=== PATIENT | male | born 1970 | race Caucasian/White ===

== ENCOUNTER 2016-12-19 15:41 | Emergency (ER) | payer OTHER ==
[~2016-12-19] VITALS: Ht 185.4 cm; Wt 140.6 kg
[~2016-12-19 15:41] MED LIST: ALPR.25T PO; ARPZ10T; BUTA1CAP39 PO; DULO30CA3 PO; DULO60CA6 PO; HCT25T PO; HYDR25CA PO; HYDR25TA4 PO; LASIX; METF1000 PO; METF500T4 PO; ONDA4TAB8 PO; PROP20TA5 PO; PROP40TA5 PO; ZPR40C PO
[2016-12-19 16:43] LABS: BILIRUBIN,URINE NEGATIVE (NEGATIVE); KETONES,URINE 1+ (NEGATIVE); LEUKOCYTE ESTERASE ,URINE NEGATIVE (NEGATIVE); NITRITE,URINE NEGATIVE (NEGATIVE); PH,URINE 6 (5-9); PROTEIN,URINE NEGATIVE (NEGATIVE); UROBILINOGEN,URINE NORMAL (NORMAL)
[2016-12-19 16:46] LABS: BASOPHILS % (AUTO) 1 % (0-10); EOSINOPHILS # (AUTO) 0.5 10^3/uL (0.0-0.3); EOSINOPHILS % (AUTO) 6 % (0-10); LYMPHOCYTES # (AUTO) 3.1 X 10^3 (1.0-4.0); LYMPHOCYTES % (AUTO) 38 % (12-44); MEAN CORPUSCULAR HEMOGLOBIN 30 PG (25-34); MEAN CORPUSCULAR HGB CONC 36 G/DL (32-36); MEAN CORPUSCULAR VOLUME 84 FL (80-99); MEAN PLATELET VOLUME 9.4 FL (7.4-10.4); MONOCYTES # (AUTO) 0.6 X 10^3 (0.0-1.0); MONOCYTES % (AUTO) 7 % (0-12); NEUTROPHILS # (AUTO) 4.1 X 10^3 (1.8-7.8); NEUTROPHILS % (AUTO) 49 % (42-75); PLATELET COUNT 295 10^3/uL (130-400); RED BLOOD COUNT 4.64 10^6/uL (4.35-5.85); RED CELL DISTRIBUTION WIDTH 13.3 % (10.0-14.5); WHITE BLOOD COUNT 8.3 10^3/uL (4.3-11.0)
[2016-12-19 16:59] LABS: ALANINE AMINOTRANSFERASE 54 U/L (0-55); ALBUMIN 3.9 G/DL (3.2-4.5); ANION GAP 9 MMOL/L (5-14); ASPARTATE AMINO TRANSFERASE 33 U/L (5-34); BILIRUBIN,TOTAL 0.4 MG/DL (0.1-1.0); BLOOD UREA NITROGEN 10 MG/DL (7-18); BUN/CREATININE RATIO 10; CALCIUM 9.5 MG/DL (8.5-10.1); CARBON DIOXIDE 28 MMOL/L (21-32); CHLORIDE 102 MMOL/L (98-107); CREATININE SERUM 0.97 MG/DL (0.60-1.30); GFR ESTIMATED > 60; GLUCOSE 262 MG/DL (70-105); LIPASE 44 U/L (8-78); POTASSIUM 4.3 MMOL/L (3.6-5.0); SODIUM 139 MMOL/L (135-145); TOTAL PROTEIN 6.7 G/DL (6.4-8.2)
--- NOTE | 2016-12-19 16:59 | ED GU-Male ---
General Chief Complaint: Abdominal/GI Problems Stated Complaint: ABD PAIN Nursing Triage Note: PT CO OF ABD PAIN SINCE YESTERDAY R L QUAD Source: patient Exam Limitations: no limitations History of Present Illness Time seen by provider: 16:40 Initial Comments 46-year-old male patient presents to the emergency department complains of right lower quadrant pain since yesterday. Reports he has had nausea for approximately 3 days. Did have one episode of diarrhea yesterday evening. States pain radiates into the right low back and down into the right groin/ scrotum. Timing/Duration: yesterday, changing over time, intermittent Severity/Quality: aching, sharp Location: RLQ Radiation: groin (rt), scrotal (rt), other (rt low back) Activities at Onset: none Prior Genitourinary Problems: none Modifying Factors: Worsens With Palpation Allergies and Home Medications Allergies Coded Allergies: codeine (Unverified Allergy, Mild, 10/22/09) naproxen (Unverified Allergy, Mild, 10/22/09) bacitracin (Verified Allergy, Unknown, 12/01/15) bupropion (Verified Allergy, Unknown, 12/01/15) cephalexin (Verified Allergy, Unknown, 12/01/15) corn (Verified Allergy, Unknown, 12/01/15) doxepin (Verified Allergy, Unknown, 12/01/15) gluten (Verified Allergy, Unknown, 12/01/15) lurasidone (Verified Allergy, Unknown, 12/01/15) neomycin (Verified Allergy, Unknown, 12/01/15) paroxetine (Verified Allergy, Unknown, 12/01/15) polymyxin B (Verified Allergy, Unknown, 12/01/15) sertraline (Verified Allergy, Unknown, 12/01/15) ziprasidone (Verified Allergy, Unknown, 12/01/15) latex (Unverified Adverse Reaction, Mild, RASH, 01/19/11) Home Medications Butalb/Acetaminophen/Caffeine 1 Each Capsule, 1 EACH PO UD PRN for MIGRAINE, ( Reported) TAKE 1 AT ONSET OF MIGRAINES, MAY TAKE UP TO 6 IN 24 HOURS Duloxetine HCl 30 Mg Capsule.dr, 90 MG PO BID, (Reported) take wtih 60mg tab Duloxetine Hcl 60 Mg Capsule.dr, 90 MG PO BID, Ref 0 (Reported) take with 30mg tab Hydroxyzine Pamoate 25 Mg Capsule, 25 MG PO TID, (Reported) Metformin HCl 500 Mg Tablet, 1,000 MG PO BID, (Reported) take 2 (500MG) TAB Propranolol HCl 20 Mg Tablet, 20 MG PO BID, (Reported) Constitutional: No chills, No fever, No malaise Respiratory: no symptoms reported Cardiovascular: no symptoms reported Gastrointestinal: see HPI, abdominal pain (RLQ), No constipation, diarrhea, No hematemesis, loss of appetite, No melena, nausea, No vomiting Genitourinary: denies burning, denies dysuria, denies frequency, flank pain (rt ), denies hematuria Musculoskeletal: see HPI, back pain (rt low back) Skin: no symptoms reported Psychiatric/Neurological: No Symptoms Reported All Other Systemes Reviewed Negative Unless Noted: Yes (Negative excepted noted.) Past Jwwciwq-Jvlugf-Hoivon Hx Patient Social History Alcohol Use: Denies Use Recreational Drug Use: No Smoking Status: Former Smoker Former Smoker/When Quit: Sep 30, 1997 Recent Foreign Travel: No Contact w/Someone Who Travel: No Recent Infectious Disease Expo: No Recent Hopitalizations: No Surgeries HX Surgeries: Yes (CARDIAC CATH, NO INTERVENTION) Surgeries: Gallbladder Respiratory Hx Respiratory Disorders: No Respiratory Disorders: Chronic Bronchitis Cardiovascular Hx Cardiac Disorders: Yes Cardiac Disorders: High Cholesterol, Hypertension Neurological Hx Neurological Disorders: Yes Neurological Disorders: Neuropathy Reproductive System Hx Reproductive Disorders: No Sexually Transmitted Disease: No HIV/AIDS: No Genitourinary Hx Genitourinary Disorders: No Gastrointestinal Hx Gastrointestinal Disorders: Yes (CELIAC DISEASE) Gastrointestinal Disorders: Chronic Diarrhea, Irritable Bowel Musculoskeletal Hx Musculoskeletal Disorders: Yes Musculoskeletal Disorders: Arthritis Endocrine Hx Endocrine Disorders: Yes Endocrine Disorders: Diabetes, Non-Insulin dep HEENT HX ENT Disorders: Yes (ALL TEETH REMOVED, GLASSES) Cancer Hx Cancer: No Psychosocial Hx Psychiatric Problems: Yes Behavioral Health Disorders: Anxiety, PTSD, Bipolar, Depression Integumentary HX Skin/Integumentary Disorder: No Blood Transfusions Hx Blood Disorders: No Family Medical History Significant Family History: Other Conditions/Hx (brother had kidney stones recently.) Physical Exam Vital Signs Vital Sign - Last 12Hours 12/19/16 16:20 Temp 96.0 Pulse 85 Resp 20 B/P (MAP) 140/86 Pulse Ox 98 Capillary Refill : Less Than 3 Seconds General Appearance: WD/WN, no apparent distress Cardiovascular: regular rate, rhythm, no murmur Respiratory: lungs clear, normal breath sounds, no respiratory distress Gastrointestinal: normal bowel sounds, soft, no organomegaly, No distended, guarding (rt mid abdomen/flank), No rebound, tenderness (RLQ, rt flank and rt mid abdomen. (-) groin tenderness. ), No hernia, No mass Back: normal inspection, CVA tenderness (R), No CVA tenderness (L) Extremities: normal capillary refill, pedal edema (2+ pedal edema bilat.) Neurologic/Psychiatric: alert, normal mood/affect, oriented x 3 Skin: normal color, warm/dry Progress/Results/Core Measures Results/Orders Lab Results Laboratory Tests Test 12/19/16 16:25 Range/Units White Blood Count 8.3 4.3-11.0 10^3/uL Red Blood Count 4.64 4.35-5.85 10^6/uL Hemoglobin 13.8 13.3-17.7 G/DL Hematocrit 39 L 40-54 % Mean Corpuscular Volume 84 80-99 FL Mean Corpuscular Hemoglobin 30 25-34 PG Mean Corpuscular Hemoglobin Concent 36 32-36 G/DL Red Cell Distribution Width 13.3 10.0-14.5 % Platelet Count 295 130-400 10^3/uL Mean Platelet Volume 9.4 7.4-10.4 FL Neutrophils (%) (Auto) 49 42-75 % Lymphocytes (%) (Auto) 38 12-44 % Monocytes (%) (Auto) 7 0-12 % Eosinophils (%) (Auto) 6 0-10 % Basophils (%) (Auto) 1 0-10 % Neutrophils # (Auto) 4.1 1.8-7.8 X 10^3 Lymphocytes # (Auto) 3.1 1.0-4.0 X 10^3 Monocytes # (Auto) 0.6 0.0-1.0 X 10^3 Eosinophils # (Auto) 0.5 H 0.0-0.3 10^3/uL Basophils # (Auto) 0.0 0.0-0.1 10^3/uL Urine Color YELLOW Urine Clarity CLEAR Urine pH 6 5-9 Urine Specific [place] 1.020 1.016-1.022 Urine Protein NEGATIVE NEGATIVE Urine Glucose (UA) 4+ H NEGATIVE Urine Ketones 1+ H NEGATIVE Urine Nitrite NEGATIVE NEGATIVE Urine Bilirubin NEGATIVE NEGATIVE Urine Urobilinogen NORMAL NORMAL MG/DL Urine Leukocyte Esterase NEGATIVE NEGATIVE Urine RBC (Auto) NEGATIVE NEGATIVE Urine RBC NONE /HPF Urine WBC NONE /HPF Urine Squamous Epithelial Cells NONE /HPF Urine Crystals NONE /LPF Urine Bacteria NEGATIVE /HPF Urine Casts NONE /LPF Urine Mucus NEGATIVE /LPF Urine Culture Indicated NO Sodium Level 139 135-145 MMOL/L Potassium Level 4.3 3.6-5.0 MMOL/L Chloride Level 102 98-107 MMOL/L Carbon Dioxide Level 28 21-32 MMOL/L Anion Gap 9 5-14 MMOL/L Blood Urea Nitrogen 10 7-18 MG/DL Creatinine 0.97 0.60-1.30 MG/DL Estimat Glomerular Filtration Rate > 60 BUN/Creatinine Ratio 10 Glucose Level 262 H 70-105 MG/DL Calcium Level 9.5 8.5-10.1 MG/DL Total Bilirubin 0.4 0.1-1.0 MG/DL Aspartate Amino Transf (AST/SGOT) 33 5-34 U/L Alanine Aminotransferase (ALT/SGPT) 54 0-55 U/L Alkaline Phosphatase 84 40-136 U/L Total Protein 6.7 6.4-8.2 G/DL Albumin 3.9 3.2-4.5 G/DL Lipase 44 8-78 U/L My Orders Orders - LUISITO WAGONER Cbc With Automated Diff (12/19/16 16:01) Comprehensive Metabolic Panel (12/19/16 16:01) Lipase (12/19/16 16:01) Ua Culture If Indicated (12/19/16 16:01) Saline Lock/Iv-Start (12/19/16 16:01) Ct Abdomen/Pelvis W Wo (12/19/16 17:12) Iohexol Injection (Omnipaque 350 Mg/Ml 1 (12/19/16 17:45) Ns (Ivpb) (Sodium Chloride 0.9% Ivpb Bag (12/19/16 17:45) Ns Iv 1000 Ml (Sodium Chloride 0.9%) (12/19/16 17:52) Medications Given in ED Current Medications Medications Dose Ordered Sig/Syl Route Start Time Stop Time Status Last Admin Dose Admin Iohexol 100 ml ONCE ONCE IV 12/19/16 17:45 12/19/16 17:46 DC 12/19/16 17:35 100 ML Sodium Chloride 100 ml ONCE ONCE IV 12/19/16 17:45 12/19/16 17:46 DC 12/19/16 17:35 80 ML Vital Signs/I&O Vital Sign - Last 12Hours 12/19/16 12/19/16 16:20 18:24 Temp 96.0 96.0 Pulse 85 85 Resp 20 20 B/P (MAP) 140/86 Pulse Ox 98 98 Blood Pressure Mean: 104 Diagnostic Imaging Diagonstic Imaging: CT Plain Films/CT/US/NM/MRI: abdomen, pelvis Comments FINDINGS: The visualized lung bases demonstrate no focal infiltrate or evidence of pleural or pericardial effusion. Diffuse hepatic steatosis is present without focal intrahepatic abnormality. The patient is status post cholecystectomy. There is no abnormal biliary dilatation. The spleen appears normal. There is a tiny left adrenal nodule. This has Hounsfield measurements of less than 10 and is most compatible with an adenoma. The pancreas demonstrates no focal abnormality. The kidneys are nonobstructed. There is no radiodense stone evident within the ureters. There is no stone evident within the urinary bladder. The kidneys enhance normally. The small and large bowel appear normal in caliber without evidence of obstruction. There is no focal abnormal bowel thickening demonstrated. There are a few uncomplicated colonic diverticula present but no findings to suggest diverticulitis. There is moderate stool within the colon. The appendix is normal. There is no free air or free fluid. Urinary bladder nondistended. There is a fat-containing umbilical hernia. There is no pathologic enlargement of abdominal or pelvic lymph nodes. There are mild degenerative features within the spine but no acute or suspicious osseous abnormality. IMPRESSION: 1. No CT evidence of an acute inflammatory or obstructive process within the abdomen or pelvis. 2. Hepatic steatosis. 3. Status post cholecystectomy. 4. No evidence of urolithiasis or hydronephrosis. The kidneys enhance normally. 5. Small low-density left adrenal nodule is most compatible with a small adenoma. 6. There is no bowel obstruction. The appendix is normal. 7. There is no free fluid or focal inflammation demonstrated within the omentum or mesentery. Dictated on workstation # [id number] Reviewed: Reviewed by Me (radiology report reviewed by me) Departure Communication Progress Notes All laboratory and diagnostic findings discussed with the patient. Patient continues to refuse pain medication. Plan for discharge to home with follow-up as an outpatient with [facility]. Patient instructed to contact their office for appointment time. Patient also instructed to return immediately to the emergency department if symptoms worsen. Patient voices understanding and agrees with the treatment plan. Impression Impression: Primary Impression: Abdominal pain Additional Impression: Diabetes mellitus Disposition: 01 HOME, SELF-CARE Condition: Improved Departure-Patient Inst. Decision time for Depature: 18:05 Referrals: [facility] (PCP/Family) Primary Care Physician Patient Instructions: Acute Abdomen (Belly Pain), Adult (DC) Add. Discharge Instructions: All discharge instructions reviewed with patient and/or family. Voiced understanding. Tylenol Extra Strength [id number] as directed for pain. Ibuprofen 800 mg by mouth every 8 hours as needed for pain. Drink plenty of fluids. Colace stool softener 100 mg by mouth 2-3 times daily as needed for constipation. MiraLAX [id number] 17 g mixed with 8 ounces of fluids by mouth at bedtime as needed for constipation. Follow-up with your family practitioner for recheck if no improvement in symptoms. Return to the emergency department for worsened pain, fever, vomiting, vomiting blood, rectal bleeding, black stools, inability to urinate, blood in the urine, or any other concerns. LUISITO WAGONER Dec 19, 2016 16:59
[2016-12-19] MEDS ORDERED: NS 100 ML (IVPB) BAG IV ONE (17:45)
[2016-12-19] MEDS ORDERED: IOHEXOL 350 MG/ML 100 ML (OMNIPAQUE 350) VIAL IV ONE (17:45)
[2016-12-19] MEDS ORDERED: NS IV 1000 ML 1,000 ML IV ONE (17:52)
--- NOTE | 2016-12-19 18:00 | Diagnostic Imaging Report ---
PROCEDURE: CT abdomen and pelvis with and without contrast. TECHNIQUE: Precontrast acquisitions were acquired through the abdomen and pelvis. Multiple contiguous axial images were obtained through the abdomen and pelvis after the administration of intravenous contrast. INDICATION: Right-sided flank pain with nausea and diarrhea. FINDINGS: The visualized lung bases demonstrate no focal infiltrate or evidence of pleural or pericardial effusion. Diffuse hepatic steatosis is present without focal intrahepatic abnormality. The patient is status post cholecystectomy. There is no abnormal biliary dilatation. The spleen appears normal. There is a tiny left adrenal nodule. This has Hounsfield measurements of less than 10 and is most compatible with an adenoma. The pancreas demonstrates no focal abnormality. The kidneys are nonobstructed. There is no radiodense stone evident within the ureters. There is no stone evident within the urinary bladder. The kidneys enhance normally. The small and large bowel appear normal in caliber without evidence of obstruction. There is no focal abnormal bowel thickening demonstrated. There are a few uncomplicated colonic diverticula present but no findings to suggest diverticulitis. There is moderate stool within the colon. The appendix is normal. There is no free air or free fluid. Urinary bladder nondistended. There is a fat-containing umbilical hernia. There is no pathologic enlargement of abdominal or pelvic lymph nodes. There are mild degenerative features within the spine but no acute or suspicious osseous abnormality. IMPRESSION: 1. No CT evidence of an acute inflammatory or obstructive process within the abdomen or pelvis. 2. Hepatic steatosis. 3. Status post cholecystectomy. 4. No evidence of urolithiasis or hydronephrosis. The kidneys enhance normally. 5. Small low-density left adrenal nodule is most compatible with a small adenoma. 6. There is no bowel obstruction. The appendix is normal. 7. There is no free fluid or focal inflammation demonstrated within the omentum or mesentery. Dictated by: Dictated on workstation # [id number]
[2016-12-19 18:24] VITALS: BP 140/86
--- OUTSIDE RECORDS SUMMARY | 2017-01-03 18:42 | XMS REPORT ---
Author Author YONY CASTRO [facility] eClinicalWorks Address Unknown Phone Unavailable Care Team Providers Care Barrel Washer Machine Name Role Phone YONY CASTRO CP Unavailable Allergies No Known Allergies Problems Problem Type Condition Code Onset Dates Condition Status Problem Left leg claudication I73.9 Active Problem Mild hyperlipidemia E78.5 Active Problem Hypertension I10 Active Problem Right leg claudication I73.9 Active Problem Diabetes type 2, controlled E11.9 Active Problem Hypertension, benign I10 Active Problem Diabetes type 2, uncontrolled E11.65 Active Problem Generalized anxiety disorder F41.1 Active Problem Bipolar disorder, unspecified F31.9 Active Problem Memory loss R41.3 Active Problem Primary insomnia F51.01 Active Medications Medication Code System Code Instructions Start Date End Date Status Dosage Propranolol HCl [facility] [address]-56 20 mg Orally Twice a day 1 tablet Results No Known Results Summary Purpose eClinicalWorks Submission
--- OUTSIDE RECORDS SUMMARY | 2017-01-03 18:42 | XMS REPORT ---
Author Author CHELSIE MACHADO Organization e[employer] Address Unknown Phone Unavailable Care Team Providers Care Systems Management Consultant Name Role Phone CHELSIE MACHADO CP Unavailable Allergies No Known Allergies Problems Problem Type Condition Code Onset Dates Condition Status Problem Unspecified visual loss 369.9 Active Problem Unspecified conjunctivitis 372.30 Active Problem Memory loss 780.93 Active Problem Bipolar disorder, unspecified F31.9 Active Problem Type II diabetes mellitus 250.00 Active Problem Generalized anxiety disorder F41.1 Active Problem Essential hypertension, benign 401.1 Active Problem 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
--- OUTSIDE RECORDS SUMMARY | 2017-01-03 18:43 | XMS REPORT ---
Author Author CHELSIE MACHADO [facility] eClinicalWorks Address Unknown Phone Unavailable Care Team Providers Care Cloud Automation Tester Name Role Phone CHELSIE MACHADO CP Unavailable Allergies, Adverse Reactions, Alerts Substance Reaction Event Type Zoloft "psychosis" Drug Allergy Ziprasidone HCl involuntary eye mvmt Drug Allergy Paxil drooling Drug Allergy Neosporin swelling Drug Allergy Naproxen rash Drug Allergy Doxepin HCl anger Drug Allergy Codeine Sulfate rash Drug Allergy gluten nausea and vomiting Non Drug Allergy Latex itching Non Drug Allergy corn/popcorn excessive sleepiness Non Drug Allergy Problems Problem Type Condition Code Onset Dates Condition Status Assessment Diabetes type 2, controlled E11.9 Active Problem Hypertension, benign I10 Active Problem Memory loss R41.3 Active Problem Diabetes type 2, controlled E11.9 Active Problem Bipolar disorder, unspecified F31.9 Active Assessment Mood disorder F39 Active Problem Primary insomnia F51.01 Active Problem Generalized anxiety disorder F41.1 Active Medications Medication Code System Code Instructions Start Date End Date Status Dosage Metformin HCl [facility] [address]-14 500 MG Twice a day 2 tablets HydrOXYzine HCl [facility] [address]-40 10 MG Orally every 8 hrs PRN March 24, 2015 1 tablet as needed Hydrochlorothiazide [facility] [address]-25 25 MG Once a day 1 capsule Cymbalta [facility] [address]-23 30 MG Orally Twice a day April 23, 2015 1 capsule Alprazolam [facility] [address]-94 1 MG TAKE ONE TABLET BY MOUTH THREE TIMES DAILY Propranolol HCl [facility] [address]-24 20 MG TAKE ONE TABLET BY MOUTH TWICE DAILY Lancets [facility] 0 - December 03, 2014 1 time per day ONE TOUCH DELICA LANCETS Cymbalta [facility] [address]-61 60 MG Orally Twice a day Jun 26, 2012 1 capsule Procedures Procedure Coding System Code Date Office Visit, Est Pt., Level 3 CPT-4 16955 Aug 24, 2015 Vital Signs Date/Time: Aug 24, 2015 Temperature 97.8 F Weight 274 lbs Height 73 in BMI 36.15 Index Blood Pressure Diastolic 94 mmHg Blood Pressure Systolic 132 mmHg Cardiac Monitoring Heart Rate 84 bpm Results No Known Results Summary Purpose eClinicalWorks Submission
--- OUTSIDE RECORDS SUMMARY | 2017-01-03 18:45 | XMS REPORT ---
Author Author CHELSIE MACHADO Organization e[employer] Address Unknown Phone Unavailable Care Team Providers Care Skiver Machine Name Role Phone CHELSIE MACHADO CP Unavailable [...] Instructions Start Date End Date Status Dosage Test strips NDC 0 Test Strips Contour test strips 3 times weekly January 25, 2016 test 2 times per day Results No Known Results Summary Purpose eClinicalWorks Submission
--- OUTSIDE RECORDS SUMMARY | 2017-01-03 18:45 | XMS REPORT ---
Author Author DIPTI GARCIA [facility] eClinicalWorks Address Unknown Phone Unavailable Care Team Providers Care Clinical Exercise Physiologist Name Role Phone DIPTI GARCIA CP Unavailable Allergies, Adverse Reactions, Alerts Substance Reaction Event Type Zoloft "psychosis" Drug Allergy Ziprasidone HCl involuntary eye mvmt Drug Allergy Latuda caused blood sugar to spike Drug Allergy Wellbutrin Info Not Available Drug Allergy Paxil drooling Drug Allergy Neosporin swelling Drug Allergy Naproxen rash Drug Allergy Doxepin HCl anger Drug Allergy Codeine Sulfate rash Drug Allergy Cephalexin rash and short of breath Drug Allergy Latex itching Non Drug Allergy gluten nausea and vomiting Non Drug Allergy corn/popcorn excessive sleepiness Non Drug Allergy Problems Problem Type Condition Code Onset Dates Condition Status Problem Left leg claudication I73.9 Active Problem Mild hyperlipidemia E78.5 Active Problem Hypertension I10 Active Assessment Sore in nose J34.89 Active Problem Right leg claudication I73.9 Active Problem Diabetes type 2, controlled E11.9 Active Problem Hypertension, benign I10 Active Problem Diabetes type 2, uncontrolled E11.65 Active Problem Generalized anxiety disorder F41.1 Active Problem Bipolar disorder, unspecified F31.9 Active Problem Memory loss R41.3 Active Problem Primary insomnia F51.01 Active Medications Medication Code System Code Instructions Start Date End Date Status Dosage Cymbalta [facility] [address]-59 30 MG Orally TAKE ONE CAPSULE BY MOUTH TWICE DAILY Test strips ND 0 Test Strips Contour test strips 3 times weekly January 25, 2016 test 2 times per day Propranolol HCl [facility] [address]-39 20 mg Orally Twice a day 1 tablet Metformin HCl [facility] 93831455120 500 MG Twice a day 2 tablets HydrOXYzine HCl [facility] [address]-27 25 MG Orally every 8 hrs PRN March 24, 2015 1 tablet as needed Cymbalta [facility] [address]-53 60 MG Orally Twice a day Jun 26, 2012 1 capsule Lancets [place] 0 - December 03, 2014 1 time per day ONE TOUCH DELICA LANCETS Bactroban Nasal [facility] [address]-73 2 % Nasally 2 times a day May 16, 2016 apply thin layer to inside of nares Procedures Procedure Coding System Code Date SHIRA VIRUS ISOLATE, HSV CPT-4 24813 May 16, 2016 Office Visit, Est Pt., Level 3 CPT-4 78339 May 16, 2016 Vital Signs Date/Time: May 16, 2016 Cardiac Monitoring Heart Rate 94 bpm Weight 280.6 lbs Height 73 in BMI 37.02 Index Blood Pressure Diastolic 90 mmHg Blood Pressure Systolic 140 mmHg Results No Known Results Summary Purpose eClinicalWorks Submission
--- OUTSIDE RECORDS SUMMARY | 2017-01-03 18:45 | XMS REPORT | Continuity of Care Document ---
Author Author [facility] Address Unknown Phone Unavailable Allergies Active Description Code Type Severity Reaction Onset Reported/Identified Relationship to Patient Clinical Status Yes codeine Drug Allergy N/A N/A 01/15/2009 Yes gluten Food Allergy N/A N/A 01/15/2009 Yes codeine Drug Allergy 01/15/2009 Yes gluten Food Allergy 01/15/2009 Yes Naproxen Sodium DS Drug Allergy 01/15/2009 Yes codeine [id number] Drug Allergy Mild N/A 10/22/2009 Yes naproxen [id number] Drug Allergy Mild N/A 10/22/2009 Yes latex [id number] Drug Allergy Mild RASH 01/19/2011 Yes Neosporin Drug Allergy N/A N/A 05/15/2012 Yes Neosporin Drug Allergy 05/15/2012 Yes latex Drug Allergy N/A N/A 07/03/2012 Yes latex Drug Allergy 07/03/2012 Yes doxepin 50 mg capsule Drug Allergy N/A N/A 12/11/2012 Yes doxepin 50 mg capsule Drug Allergy 12/11/2012 Yes bacitracin [id number] Drug Allergy Unknown N/A 12/01/2015 Yes bupropion [id number] Drug Allergy Unknown N/A 12/01/2015 Yes cephalexin [id number] Drug Allergy Unknown N/A 12/01/2015 Yes corn [id number] Drug Allergy Unknown N/A 12/01/2015 Yes doxepin [id number] Drug Allergy Unknown N/A 12/01/2015 Yes gluten [id number] Drug Allergy Unknown N/A 12/01/2015 Yes lurasidone [id number] Drug Allergy Unknown N/A 12/01/2015 Yes neomycin [id number] Drug Allergy Unknown N/A 12/01/2015 Yes paroxetine [id number] Drug Allergy Unknown N/A 12/01/2015 Yes polymyxin B [id number] Drug Allergy Unknown N/A 12/01/2015 Yes sertraline [id number] Drug Allergy Unknown N/A 12/01/2015 Yes ziprasidone [id number] Drug Allergy Unknown N/A 12/01/2015 Medications Problems Date Dx Coded Attending Type Code Diagnosis Diagnosed By 10/08/2008 KYEERICK VALENCIAWILBER Pina Uriel 604.90 ORCHITIS AND EPIDIDYMITIS UNSPECIFIED 10/08/2008 604.90 ORCHITIS AND EPIDIDYMITIS UNSPECIFIED 10/08/2008 604.90 ORCHITIS AND EPIDIDYMITIS UNSPECIFIED 10/08/2008 CHELSIE MACHADO APRN 604.90 ORCHITIS AND EPIDIDYMITIS UNSPECIFIED 10/08/2008 CHELSIE MACHADO APRN 604.90 ORCHITIS AND EPIDIDYMITIS UNSPECIFIED 10/08/2008 604.90 ORCHITIS AND EPIDIDYMITIS UNSPECIFIED 10/08/2008 CARMEN COREA APRN 604.90 ORCHITIS AND EPIDIDYMITIS UNSPECIFIED 10/08/2008 CHELSIE MACHADO APRN 604.90 Orchitis And Epididymitis Unspecified 10/08/2008 604.90 Orchitis And Epididymitis Unspecified 10/08/2008 604.90 Orchitis And Epididymitis Unspecified 10/08/2008 604.90 Orchitis And Epididymitis Unspecified 10/08/2008 604.90 Orchitis And Epididymitis Unspecified 10/08/2008 604.90 Orchitis And Epididymitis Unspecified 10/08/2008 604.90 Orchitis And Epididymitis Unspecified 10/08/2008 CARMEN COREA APRN 604.90 Orchitis And Epididymitis Unspecified 10/08/2008 CHELSIE MACHADO APRN 604.90 Orchitis And Epididymitis Unspecified 10/08/2008 CARMEN COREA APRN 604.90 Orchitis And Epididymitis Unspecified 10/08/2008 CHELSIE MACHADO APRN 604.90 Orchitis And Epididymitis Unspecified 10/08/2008 CHELSIE MACHADO APRN 604.90 Orchitis And Epididymitis Unspecified 10/08/2008 CHELSIE MACHADO APRN 604.90 Orchitis And Epididymitis Unspecified 10/08/2008 HALINA CHAPARRO APRN 604.90 Orchitis And Epididymitis Unspecified 10/08/2008 CHELSIE MACHADO APRN 604.90 Orchitis And Epididymitis Unspecified 10/08/2008 CARMEN COREA APRN 604.90 Orchitis And Epididymitis Unspecified 10/08/2008 CARMEN COREA APRN 604.90 Orchitis And Epididymitis Unspecified 10/08/2008 CHELSIE MACHADO APRN 604.90 Orchitis And Epididymitis Unspecified 10/08/2008 JANEL PALACIOS APRN 604.90 Orchitis And Epididymitis Unspecified 10/08/2008 CHELSIE MACHADO APRN T 604.90 Orchitis And Epididymitis Unspecified 10/08/2008 CHELSIE MACHADO APRN T 604.90 Orchitis And Epididymitis Unspecified 10/08/2008 CHELSIE MACHADO APRN T 604.90 Orchitis And Epididymitis Unspecified 01/15/2009 CHEIKH SWEET, WILBER Trevino V70.0 GENERAL MEDICAL EXAM, ROUTINE, AT HEALTH CARE FACILITY 01/15/2009 V70.0 GENERAL MEDICAL EXAM, ROUTINE, AT HEALTH CARE FACILITY 01/15/2009 V70.0 GENERAL MEDICAL EXAM, ROUTINE, AT HEALTH CARE FACILITY 01/15/2009 CHELSIE MACHADO APRN V70.0 GENERAL MEDICAL EXAM, ROUTINE, AT HEALTH CARE FACILITY 01/15/2009 CHELSIE MACHADO APRN V70.0 GENERAL MEDICAL EXAM, ROUTINE, AT HEALTH CARE FACILITY 01/15/2009 V70.0 GENERAL MEDICAL EXAM, ROUTINE, AT HEALTH CARE FACILITY 01/15/2009 CARMEN COREA APRN V70.0 GENERAL MEDICAL EXAM, ROUTINE, AT HEALTH CARE FACILITY 01/15/2009 CHELSIE MACHADO APRN V70.0 General Medical Exam, Routine, At Health Care Facility 01/15/2009 V70.0 General Medical Exam, Routine, At Health Care Facility 01/15/2009 V70.0 General Medical Exam, Routine, At Health Care Facility 01/15/2009 V70.0 General Medical Exam, Routine, At Health Care Facility 01/15/2009 V70.0 General Medical Exam, Routine, At Health Care Facility 01/15/2009 V70.0 General Medical Exam, Routine, At Health Care Facility 01/15/2009 V70.0 General Medical Exam, Routine, At Health Care Facility 01/15/2009 CARMEN COREA APRN V70.0 General Medical Exam, Routine, At Health Care Facility 01/15/2009 JEANNETTE DENTAL FLOSS PACKER, CHELSIE T V70.0 General Medical Exam, Routine, At Health Care Facility 01/15/2009 CARMEN COREA APRN V70.0 General Medical Exam, Routine, At Health Care Facility 01/15/2009 CHELSIE MACHADO APRN V70.0 General Medical Exam, Routine, At Health Care Facility 01/15/2009 CHELSIE MACHADO APRN V70.0 General Medical Exam, Routine, At Health Care Facility 01/15/2009 CHELSIE MACHADO APRN V70.0 General Medical Exam, Routine, At Health Care Facility 01/15/2009 HALINA CHAPARRO APRN V70.0 General Medical Exam, Routine, At Health Care Facility 01/15/2009 CHELSIE MACHADO APRN V70.0 General Medical Exam, Routine, At Health Care Facility 01/15/2009 CARMEN COREA APRN V70.0 General Medical Exam, Routine, At Health Care Facility 01/15/2009 CARMEN COREA APRN V70.0 General Medical Exam, Routine, At Health Care Facility 01/15/2009 CHELSIE MACHADO APRN V70.0 General Medical Exam, Routine, At Health Care Facility 01/15/2009 JANEL PALACIOS APRN V70.0 General Medical Exam, Routine, At Health Care Facility 01/15/2009 CHELSIE MACHADO APRN V70.0 General Medical Exam, Routine, At Health Care Facility 01/15/2009 CHELSIE MACHADO APRN V70.0 General Medical Exam, Routine, At Health Care Facility 01/15/2009 CHELSIE MACHADO APRN V70.0 General Medical Exam, Routine, At Health Care Facility 03/04/2009 WILBER SALAMANCA DDS 272.4 HYPERLIPIDEMIA UNSPECIFIED 03/04/2009 272.4 HYPERLIPIDEMIA UNSPECIFIED 03/04/2009 272.4 HYPERLIPIDEMIA UNSPECIFIED 03/04/2009 CHELSIE MACHADO APRN 272.4 HYPERLIPIDEMIA UNSPECIFIED 03/04/2009 CHELSIE MACHADO APRN 272.4 HYPERLIPIDEMIA UNSPECIFIED 03/04/2009 272.4 HYPERLIPIDEMIA UNSPECIFIED 03/04/2009 CARMEN COREA APRN 272.4 HYPERLIPIDEMIA UNSPECIFIED 03/04/2009 CHELSIE MACHADO APRN 272.4 HYPERLIPIDEMIA UNSPECIFIED 03/04/2009 272.4 HYPERLIPIDEMIA UNSPECIFIED 03/04/2009 272.4 HYPERLIPIDEMIA UNSPECIFIED 03/04/2009 272.4 HYPERLIPIDEMIA UNSPECIFIED 03/04/2009 272.4 HYPERLIPIDEMIA UNSPECIFIED 03/04/2009 272.4 HYPERLIPIDEMIA UNSPECIFIED 03/04/2009 272.4 HYPERLIPIDEMIA UNSPECIFIED 03/04/2009 COREA DENTAL FLOSS PACKER, CARMEN FROYLAN 272.4 HYPERLIPIDEMIA UNSPECIFIED 03/04/2009 JEANNETTE DENTAL FLOSS PACKER, CHELSIE T 272.4 HYPERLIPIDEMIA UNSPECIFIED 03/04/2009 COREA DENTAL FLOSS PACKER, CARMEN FROYLAN 272.4 HYPERLIPIDEMIA UNSPECIFIED 03/04/2009 JEANNETTE DENTAL FLOSS PACKER, CHELSIE T 272.4 HYPERLIPIDEMIA UNSPECIFIED 03/04/2009 JEANNETTE DENTAL FLOSS PACKER, CHELSIE T 272.4 HYPERLIPIDEMIA UNSPECIFIED 03/04/2009 JEANNETTE DENTAL FLOSS PACKER, CHELSIE T 272.4 HYPERLIPIDEMIA UNSPECIFIED 03/04/2009 KRYSTA DENTAL FLOSS PACKER, HALINA R 272.4 HYPERLIPIDEMIA UNSPECIFIED 03/04/2009 JEANNETTE DENTAL FLOSS PACKER, CHELSIE T 272.4 HYPERLIPIDEMIA UNSPECIFIED 03/04/2009 COREA DENTAL FLOSS PACKER, CARMEN GALEANO 272.4 HYPERLIPIDEMIA UNSPECIFIED 03/04/2009 COREA DENTAL FLOSS PACKER, CARMEN FROYLAN 272.4 HYPERLIPIDEMIA UNSPECIFIED 03/04/2009 JEANNETTE DENTAL FLOSS PACKER, CHELSIE T 272.4 HYPERLIPIDEMIA UNSPECIFIED 03/04/2009 SUZANNE DENTAL FLOSS PACKER, JANEL 272.4 HYPERLIPIDEMIA UNSPECIFIED 03/04/2009 JEANNETTE DENTAL FLOSS PACKER, CHELSIE T 272.4 HYPERLIPIDEMIA UNSPECIFIED 03/04/2009 JEANNETTE DENTAL FLOSS PACKER, CHELSIE T 272.4 HYPERLIPIDEMIA UNSPECIFIED 03/04/2009 JEANNETTE DENTAL FLOSS PACKER, CHELSIE T 272.4 HYPERLIPIDEMIA UNSPECIFIED 10/19/2009 CHEIKH VALENCIAS, WILBER N 786.50 CHEST PAIN 10/19/2009 786.50 CHEST PAIN 10/19/2009 786.50 CHEST PAIN 10/19/2009 CHELSIE MACHADO APRN T 786.50 CHEST PAIN 10/19/2009 JEANNETTE TURK CHELSIE T 786.50 CHEST PAIN 10/19/2009 786.50 CHEST PAIN 10/19/2009 NAHOMY TURK, CARMEN FROYLAN 786.50 CHEST PAIN 10/19/2009 CHELSIE MACHADO APRN T 786.50 CHEST PAIN 10/19/2009 786.50 CHEST PAIN 10/19/2009 786.50 CHEST PAIN 10/19/2009 786.50 CHEST PAIN 10/19/2009 786.50 CHEST PAIN 10/19/2009 786.50 CHEST PAIN 10/19/2009 786.50 CHEST PAIN 10/19/2009 NAHOMY TAYLORN, CARMEN GALEANO 786.50 CHEST PAIN 10/19/2009 JEANNETTE TURK, CHELSIE T 786.50 CHEST PAIN 10/19/2009 NAHOMY DENTAL FLOSS PACKER, CARMEN GALEANO 786.50 CHEST PAIN 10/19/2009 JEANNETTE TURK, CHELSIE T 786.50 CHEST PAIN 10/19/2009 JEANNETTE TURK, CHELSIE T 786.50 CHEST PAIN 10/19/2009 JEANNETTE TURK, CHELSIE T 786.50 CHEST PAIN 10/19/2009 KRYSTA DENTAL FLOSS PACKER, HALINA R 786.50 CHEST PAIN 10/19/2009 JEANNETTE TURK, CHELSIE T 786.50 CHEST PAIN 10/19/2009 NAHOMY DENTAL FLOSS PACKER, CARMEN GALEANO 786.50 CHEST PAIN 10/19/2009 NAHOMY DENTAL FLOSS PACKER, CARMEN GALEANO 786.50 CHEST PAIN 10/19/2009 JEANNETTE TURK, CHELSIE T 786.50 CHEST PAIN 10/19/2009 SUZANNE DENTAL FLOSS PACKER, JANEL 786.50 CHEST PAIN 10/19/2009 JEANNETTE TURK, CHELSIE T 786.50 CHEST PAIN 10/19/2009 JEANNETTE TURK, CHELSIE T 786.50 CHEST PAIN 10/19/2009 CHELSIE MACHADO APRN T 786.50 CHEST PAIN 06/01/2010 CHEIKH SWEET, WILBER Trevino 296.80 MO BIPOLAR NOS 06/01/2010 296.80 MO BIPOLAR NOS 06/01/2010 296.80 MO BIPOLAR NOS 06/01/2010 CHELSIE MACHADO APRN 296.80 MO BIPOLAR NOS 06/01/2010 CHELSIE MACHADO APRN 296.80 MO BIPOLAR NOS 06/01/2010 296.80 MO BIPOLAR NOS 06/01/2010 CARMEN COREA APRN 296.80 MO BIPOLAR NOS 06/01/2010 CHELSIE MACHADO APRN 296.80 MO BIPOLAR NOS 06/01/2010 296.80 MO BIPOLAR NOS 06/01/2010 296.80 MO BIPOLAR NOS 06/01/2010 296.80 MO BIPOLAR NOS 06/01/2010 296.80 MO BIPOLAR NOS 06/01/2010 296.80 MO BIPOLAR NOS 06/01/2010 296.80 MO BIPOLAR NOS 06/01/2010 CARMEN COREA APRN 296.80 MO BIPOLAR NOS 06/01/2010 CHELSIE MACHADO APRN 296.80 MO BIPOLAR NOS 06/01/2010 CARMEN COREA APRN 296.80 MO BIPOLAR NOS 06/01/2010 JEANNETTE DENTAL FLOSS PACKER, CHELSIE T 296.80 MO BIPOLAR NOS 06/01/2010 CHELSIE MACHADO APRN T 296.80 MO BIPOLAR NOS 06/01/2010 CHELSIE MACHADO APRN 296.80 MO BIPOLAR NOS 06/01/2010 HALINA CHAPARRO APRN 296.80 MO BIPOLAR NOS 06/01/2010 CHELSIE MACHADO APRN T 296.80 MO BIPOLAR NOS 06/01/2010 NAHOMY TURK CARMEN FROYLAN 296.80 MO BIPOLAR NOS 06/01/2010 NAHOMY TURK CARMEN FROYLAN 296.80 MO BIPOLAR NOS 06/01/2010 CHELSIE MACHADO APRN T 296.80 MO BIPOLAR NOS 06/01/2010 JANEL PALACIOS APRN 296.80 MO BIPOLAR NOS 06/01/2010 CHELSIE MACHADO APRN T 296.80 MO BIPOLAR NOS 06/01/2010 CHELSIE MACHADO APRN T 296.80 MO BIPOLAR NOS 06/01/2010 CHELSIE MACHADO APRN T 296.80 MO BIPOLAR NOS 01/03/2011 CHEIKH SWEET, WILBER Trevino 300.00 AN ANXIETY UNSPEC 01/03/2011 300.00 AN ANXIETY UNSPEC 01/03/2011 300.00 AN ANXIETY UNSPEC 01/03/2011 CHELSIE MACHADO APRN 300.00 AN ANXIETY UNSPEC 01/03/2011 CHELSIE MACHADO APRN 300.00 AN ANXIETY UNSPEC 01/03/2011 300.00 AN ANXIETY UNSPEC 01/03/2011 NAHOMY TURK CARMEN FROYLAN 300.00 AN ANXIETY UNSPEC 01/03/2011 CHELSIE MACHADO APRN 300.00 AN ANXIETY UNSPEC 01/03/2011 300.00 AN ANXIETY UNSPEC 01/03/2011 300.00 AN ANXIETY UNSPEC 01/03/2011 300.00 AN ANXIETY UNSPEC 01/03/2011 300.00 AN ANXIETY UNSPEC 01/03/2011 300.00 AN ANXIETY UNSPEC 01/03/2011 300.00 AN ANXIETY UNSPEC 01/03/2011 NAHOMY TURK CAMREN FROYLAN 300.00 AN ANXIETY UNSPEC 01/03/2011 CHELSIE MACHADO APRN 300.00 AN ANXIETY UNSPEC 01/03/2011 CARMEN COREA APRN 300.00 AN ANXIETY UNSPEC 01/03/2011 CHELSIE MACHADO APRN 300.00 AN ANXIETY UNSPEC 01/03/2011 CHELSIE MACHADO APRN 300.00 AN ANXIETY UNSPEC 01/03/2011 CHELSIE MACHADO APRN 300.00 AN ANXIETY UNSPEC 01/03/2011 HALINA CHAPARRO APRN R 300.00 AN ANXIETY UNSPEC 01/03/2011 CHELSIE MACHADO APRN 300.00 AN ANXIETY UNSPEC 01/03/2011 NAHOMY TAYLORNCARMEN 300.00 AN ANXIETY UNSPEC 01/03/2011 NAHOMY TAYLORNCARMEN 300.00 AN ANXIETY UNSPEC 01/03/2011 CHELSIE MACHADO APRN 300.00 AN ANXIETY UNSPEC 01/03/2011 JANEL PALACIOS APRN 300.00 AN ANXIETY UNSPEC 01/03/2011 CHELSIE MACHADO APRN 300.00 AN ANXIETY UNSPEC 01/03/2011 CHELSIE MACHADO APRN 300.00 AN ANXIETY UNSPEC 01/03/2011 CHELSIE MACHADO APRN 300.00 AN ANXIETY UNSPEC 01/20/2011 Ot 786.59 01/20/2011 Ot 790.29 01/31/2011 WILBER SALAMANCA DDS N 780.8 GENERALIZED HYPERHIDROSIS 01/31/2011 WILBER SALAMANCA DDS 787.02 NAUSEA ALONE 01/31/2011 780.8 GENERALIZED HYPERHIDROSIS 01/31/2011 787.02 NAUSEA ALONE 01/31/2011 780.8 GENERALIZED HYPERHIDROSIS 01/31/2011 787.02 NAUSEA ALONE 01/31/2011 CHELSIE MACHADO APRN 780.8 GENERALIZED HYPERHIDROSIS 01/31/2011 CHELSIE MACHADO APRN 787.02 NAUSEA ALONE 01/31/2011 CHELSIE MACHADO APRN 780.8 GENERALIZED HYPERHIDROSIS 01/31/2011 CHELSIE MACHADO APRN 787.02 NAUSEA ALONE 01/31/2011 780.8 GENERALIZED HYPERHIDROSIS 01/31/2011 787.02 NAUSEA ALONE 01/31/2011 NAHOMY TURK CARMEN GALEANO 780.8 GENERALIZED HYPERHIDROSIS 01/31/2011 NAHOMY TURK CARMEN GALEANO 787.02 NAUSEA ALONE 01/31/2011 CHELSIE MACHADO APRN 780.8 GENERALIZED HYPERHIDROSIS 01/31/2011 CHELSIE MACHADO APRN 787.02 Nausea Alone 01/31/2011 780.8 GENERALIZED HYPERHIDROSIS 01/31/2011 787.02 Nausea Alone 01/31/2011 780.8 GENERALIZED HYPERHIDROSIS 01/31/2011 787.02 Nausea Alone 01/31/2011 780.8 GENERALIZED HYPERHIDROSIS 01/31/2011 787.02 Nausea Alone 01/31/2011 780.8 GENERALIZED HYPERHIDROSIS 01/31/2011 787.02 Nausea Alone 01/31/2011 780.8 GENERALIZED HYPERHIDROSIS 01/31/2011 787.02 Nausea Alone 01/31/2011 780.8 GENERALIZED HYPERHIDROSIS 01/31/2011 787.02 Nausea Alone 01/31/2011 COREA BURKE CARMEN GALEANO 780.8 GENERALIZED HYPERHIDROSIS 01/31/2011 COREA BURKE CARMEN GALEANO 787.02 Nausea Alone 01/31/2011 CHELSIE MACHADO APRN 780.8 GENERALIZED HYPERHIDROSIS 01/31/2011 CHELSIE MACHADO APRN 787.02 Nausea Alone 01/31/2011 NAHOMY TURK CARMEN RITTERH 780.8 GENERALIZED HYPERHIDROSIS 01/31/2011 NAHOMY TURK CARMEN RITTERH 787.02 Nausea Alone 01/31/2011 CHELSIE MACHADO APRN 780.8 GENERALIZED HYPERHIDROSIS 01/31/2011 CHELSIE MACHADO APRN 787.02 Nausea Alone 01/31/2011 CHELSIE MACHADO APRN 780.8 GENERALIZED HYPERHIDROSIS 01/31/2011 CHELSIE MACHADO APRN 787.02 Nausea Alone 01/31/2011 CHELSIE MACHADO APRN 780.8 GENERALIZED HYPERHIDROSIS 01/31/2011 CHELSIE MACHADO APRN 787.02 Nausea Alone 01/31/2011 HALINA CHAPARRO APRN R 780.8 GENERALIZED HYPERHIDROSIS 01/31/2011 HALINA CHAPARRO APRN R 787.02 Nausea Alone 01/31/2011 CHELSIE MACHADO APRN 780.8 GENERALIZED HYPERHIDROSIS 01/31/2011 CHELSIE MACHADO APRN 787.02 Nausea Alone 01/31/2011 NAHOMY TURK CARMEN RITTERH 780.8 GENERALIZED HYPERHIDROSIS 01/31/2011 NAHOMY TURK CARMEN RITTERH 787.02 Nausea Alone 01/31/2011 NAHOMY TURK CARMEN RITTERH 780.8 GENERALIZED HYPERHIDROSIS 01/31/2011 NAHOMY TURK CARMEN GALEANO 787.02 Nausea Alone 01/31/2011 CHELSIE MACHADO APRN 780.8 GENERALIZED HYPERHIDROSIS 01/31/2011 CHELSIE MACHADO APRN 787.02 Nausea Alone 01/31/2011 SUZANNEJOAN TURK, JANEL 780.8 GENERALIZED HYPERHIDROSIS 01/31/2011 JANEL PALACIOS APRN 787.02 Nausea Alone 01/31/2011 CHELSIE MACHADO APRN 780.8 GENERALIZED HYPERHIDROSIS 01/31/2011 CHELSIE MACHADO APRN 787.02 Nausea Alone 01/31/2011 CHELSIE MACHADO APRN 780.8 GENERALIZED HYPERHIDROSIS 01/31/2011 CHELSIE MACHADO APRN 787.02 Nausea Alone 01/31/2011 CHELSIE MACHADO APRN 780.8 GENERALIZED HYPERHIDROSIS 01/31/2011 CHELSIE MACHADO APRN 787.02 Nausea Alone 02/02/2011 WILBER SALAMANCA DDS 300.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 02/02/2011 300.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 02/02/2011 300.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 02/02/2011 CHELSIE MACHADO APRN 300.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 02/02/2011 CHELSIE MACHADO APRN 300.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 02/02/2011 300.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 02/02/2011 CARMEN COREA APRN 300.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 02/02/2011 CHELSIE MACHADO APRN 300.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 02/02/2011 300.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 02/02/2011 300.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 02/02/2011 300.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 02/02/2011 300.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 02/02/2011 300.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 02/02/2011 300.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 02/02/2011 CARMEN COREA APRN 300.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 02/02/2011 CHELSIE MACHADO APRN 300.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 02/02/2011 CARMEN COREA APRN 300.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 02/02/2011 CHELSIE MACHADO APRN 300.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 02/02/2011 CHELSIE MACHADO APRN 300.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 02/02/2011 CHELSIE MACHADO APRN 300.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 02/02/2011 HALINA CHAPARRO APRN 300.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 02/02/2011 CEHLSIE MACHADO APRN 300.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 02/02/2011 CARMEN COREA APRN 300.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 02/02/2011 CARMEN COREA APRN 300.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 02/02/2011 CHELSIE MACHADO APRN 300.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 02/02/2011 JANEL PALACIOS APRN 300.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 02/02/2011 CHELSIE MACHADO APRN T 300.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 02/02/2011 CHELSIE MACHADO APRN 300.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 02/02/2011 CHELSIE MACHADO APRN 300.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 11/21/2011 CHEIKH VALENCIAS, WILBER Trevino V58.69 MEDICATION HIGH RISK 11/21/2011 V58.69 MEDICATION HIGH RISK 11/21/2011 V58.69 MEDICATION HIGH RISK 11/21/2011 CHELSIE MACHADO APRN T V58.69 MEDICATION HIGH RISK 11/21/2011 CHELSIE MACHADO APRN V58.69 MEDICATION HIGH RISK 11/21/2011 V58.69 MEDICATION HIGH RISK 11/21/2011 CARMEN COREA APRN V58.69 MEDICATION HIGH RISK 11/21/2011 CHELSIE MACHADO APRN T V58.69 MEDICATION HIGH RISK 11/21/2011 V58.69 MEDICATION HIGH RISK 11/21/2011 V58.69 MEDICATION HIGH RISK 11/21/2011 V58.69 MEDICATION HIGH RISK 11/21/2011 V58.69 MEDICATION HIGH RISK 11/21/2011 V58.69 MEDICATION HIGH RISK 11/21/2011 V58.69 MEDICATION HIGH RISK 11/21/2011 CARMEN COREA APRN V58.69 MEDICATION HIGH RISK 11/21/2011 CHELSIE MACHADO APRN T V58.69 MEDICATION HIGH RISK 11/21/2011 CARMEN COREA APRN V58.69 MEDICATION HIGH RISK 11/21/2011 CHELSIE MACHADO APRN T V58.69 MEDICATION HIGH RISK 11/21/2011 CHELSIE MACHADO APRN V58.69 MEDICATION HIGH RISK 11/21/2011 CHELSIE MACHADO APRN V58.69 MEDICATION HIGH RISK 11/21/2011 HALINA CHAPARRO APRN V58.69 MEDICATION HIGH RISK 11/21/2011 CHELSIE MACHADO APRN V58.69 MEDICATION HIGH RISK 11/21/2011 CARMEN COREA APRN V58.69 MEDICATION HIGH RISK 11/21/2011 CARMEN COREA APRN V58.69 MEDICATION HIGH RISK 11/21/2011 CHELSIE MACHADO APRN V58.69 MEDICATION HIGH RISK 11/21/2011 JANEL PALACIOS APRN V58.69 MEDICATION HIGH RISK 11/21/2011 CHELSIE MACHADO APRN V58.69 MEDICATION HIGH RISK 11/21/2011 CHELSIE MACHADO APRN V58.69 MEDICATION HIGH RISK 11/21/2011 CHELSIE MACHADO APRN V58.69 MEDICATION HIGH RISK 11/29/2011 CHEIKH VALENCIAS, WILBER N 401.1 HYPERTENSION, BENIGN ESSENTIAL 11/29/2011 401.1 HYPERTENSION, BENIGN ESSENTIAL 11/29/2011 401.1 HYPERTENSION, BENIGN ESSENTIAL 11/29/2011 CHELSIE MACHADO APRN 401.1 HYPERTENSION, BENIGN ESSENTIAL 11/29/2011 CHELSIE MACHADO APRN 401.1 HYPERTENSION, BENIGN ESSENTIAL 11/29/2011 401.1 HYPERTENSION, BENIGN ESSENTIAL 11/29/2011 CARMEN COREA APRN 401.1 HYPERTENSION, BENIGN ESSENTIAL 11/29/2011 CHELSIE MACHADO APRN 401.1 HYPERTENSION, BENIGN ESSENTIAL 11/29/2011 401.1 HYPERTENSION, BENIGN ESSENTIAL 11/29/2011 401.1 HYPERTENSION, BENIGN ESSENTIAL 11/29/2011 401.1 HYPERTENSION, BENIGN ESSENTIAL 11/29/2011 401.1 HYPERTENSION, BENIGN ESSENTIAL 11/29/2011 401.1 HYPERTENSION, BENIGN ESSENTIAL 11/29/2011 401.1 HYPERTENSION, BENIGN ESSENTIAL 11/29/2011 CARMEN COREA APRN 401.1 HYPERTENSION, BENIGN ESSENTIAL 11/29/2011 CHELSIE MACHADO APRN 401.1 HYPERTENSION, BENIGN ESSENTIAL 11/29/2011 CARMEN COREA APRN 401.1 HYPERTENSION, BENIGN ESSENTIAL 11/29/2011 CHELSIE MACHADO APRN 401.1 HYPERTENSION, BENIGN ESSENTIAL 11/29/2011 CHELSIE MACHADO APRN 401.1 HYPERTENSION, BENIGN ESSENTIAL 11/29/2011 CHELSIE MACHADO APRN 401.1 HYPERTENSION, BENIGN ESSENTIAL 11/29/2011 HALINA CHAPARRO APRN 401.1 HYPERTENSION, BENIGN ESSENTIAL 11/29/2011 CHELSIE MACHADO APRN 401.1 HYPERTENSION, BENIGN ESSENTIAL 11/29/2011 CARMEN COREA APRN 401.1 HYPERTENSION, BENIGN ESSENTIAL 11/29/2011 CARMEN COREA APRN 401.1 HYPERTENSION, BENIGN ESSENTIAL 11/29/2011 CHELSIE MACHADO APRN 401.1 HYPERTENSION, BENIGN ESSENTIAL 11/29/2011 JANEL PALACIOS APRN 401.1 HYPERTENSION, BENIGN ESSENTIAL 11/29/2011 CHELSIE MACHADO APRN T 401.1 HYPERTENSION, BENIGN ESSENTIAL 11/29/2011 JEANNETTE TURK, CHELSIE T 401.1 HYPERTENSION, BENIGN ESSENTIAL 11/29/2011 CHELSIE MACHADO APRN T 401.1 HYPERTENSION, BENIGN ESSENTIAL 03/26/2012 CHEIKH VALENCIAS, WILBER N 346.90 HEADACHE, MIGRAINE 03/26/2012 346.90 HEADACHE, MIGRAINE 03/26/2012 346.90 HEADACHE, MIGRAINE 03/26/2012 CHELSIE MACHADO APRN T 346.90 HEADACHE, MIGRAINE 03/26/2012 CHELSIE MACHADO APRN T 346.90 HEADACHE, MIGRAINE 03/26/2012 346.90 HEADACHE, MIGRAINE 03/26/2012 NAHOMY TURK, CARMEN GALEANO 346.90 HEADACHE, MIGRAINE 03/26/2012 CHELSIE MACHADO APRN T 346.90 HEADACHE, MIGRAINE 03/26/2012 346.90 HEADACHE, MIGRAINE 03/26/2012 346.90 HEADACHE, MIGRAINE 03/26/2012 346.90 HEADACHE, MIGRAINE 03/26/2012 346.90 HEADACHE, MIGRAINE 03/26/2012 346.90 HEADACHE, MIGRAINE 03/26/2012 346.90 HEADACHE, MIGRAINE 03/26/2012 CARMEN COREA APRN 346.90 HEADACHE, MIGRAINE 03/26/2012 CHELSIE MACHADO APRN T 346.90 HEADACHE, MIGRAINE 03/26/2012 NAHOMY TURK, CARMEN GALEANO 346.90 HEADACHE, MIGRAINE 03/26/2012 CHELSIE MACHADO APRN T 346.90 HEADACHE, MIGRAINE 03/26/2012 CHELSIE MACHADO APRN T 346.90 HEADACHE, MIGRAINE 03/26/2012 CHELSIE MACHADO APRN T 346.90 HEADACHE, MIGRAINE 03/26/2012 KRYSTA TURK HALINA R 346.90 HEADACHE, MIGRAINE 03/26/2012 CHELSIE MACHADO APRN T 346.90 HEADACHE, MIGRAINE 03/26/2012 NAHOMY TURK, CARMEN GALEANO 346.90 HEADACHE, MIGRAINE 03/26/2012 NAHOMY TURK, CARMEN GALEANO 346.90 HEADACHE, MIGRAINE 03/26/2012 CHELSIE MACHADO APRN T 346.90 HEADACHE, MIGRAINE 03/26/2012 JANEL PALACIOS APRN 346.90 HEADACHE, MIGRAINE 03/26/2012 CHELSIE MACHADO APRN 346.90 HEADACHE, MIGRAINE 03/26/2012 CHELSIE MACHADO APRN T 346.90 HEADACHE, MIGRAINE 03/26/2012 CHELSIE MACHADO APRN T 346.90 HEADACHE, MIGRAINE 05/02/2012 CHEIKH DDS, WILBER N 372.30 CONJUNCTIVITIS UNSPECIFIED 05/02/2012 372.30 CONJUNCTIVITIS UNSPECIFIED 05/02/2012 372.30 CONJUNCTIVITIS UNSPECIFIED 05/02/2012 CHELSIE MACHADO APRN T 372.30 CONJUNCTIVITIS UNSPECIFIED 05/02/2012 CHELSIE MACHADO APRN T 372.30 CONJUNCTIVITIS UNSPECIFIED 05/02/2012 372.30 CONJUNCTIVITIS UNSPECIFIED 05/02/2012 CARMEN COREA APRN 372.30 CONJUNCTIVITIS UNSPECIFIED 05/02/2012 CHELSIE MACHADO APRN 372.30 Conjunctivitis Unspecified 05/02/2012 372.30 Conjunctivitis Unspecified 05/02/2012 372.30 Conjunctivitis Unspecified 05/02/2012 372.30 Conjunctivitis Unspecified 05/02/2012 372.30 Conjunctivitis Unspecified 05/02/2012 372.30 Conjunctivitis Unspecified 05/02/2012 372.30 Conjunctivitis Unspecified 05/02/2012 CARMEN COREA APRN 372.30 Conjunctivitis Unspecified 05/02/2012 CHELSIE MACHADO APRN 372.30 Conjunctivitis Unspecified 05/02/2012 CARMEN COREA APRN 372.30 Conjunctivitis Unspecified 05/02/2012 CHELSIE MACHADO APRN 372.30 Conjunctivitis Unspecified 05/02/2012 CHELSIE MACHADO APRN 372.30 Conjunctivitis Unspecified 05/02/2012 CHELSIE MACHADO APRN 372.30 Conjunctivitis Unspecified 05/02/2012 KRYSTA UTRK HALINA R 372.30 Conjunctivitis Unspecified 05/02/2012 CHELSIE MACHADO APRN 372.30 Conjunctivitis Unspecified 05/02/2012 CARMEN COREA APRN 372.30 Conjunctivitis Unspecified 05/02/2012 CARMEN COREA APRN 372.30 Conjunctivitis Unspecified 05/02/2012 CHELSIE MACHADO APRN 372.30 Conjunctivitis Unspecified 05/02/2012 JANEL PALACIOS APRN 372.30 Conjunctivitis Unspecified 05/02/2012 JEANNETTE DENTAL FLOSS PACKER, CHELSIE T 372.30 Conjunctivitis Unspecified 05/02/2012 CHELSIE MACHADO APRN T 372.30 Conjunctivitis Unspecified 05/02/2012 JEANNETTE TURK, CHELSIE T 372.30 Conjunctivitis Unspecified 05/15/2012 CHEIKH VALENCIAS, WILBER N 369.9 VISUAL LOSS UNSPECIFIED 05/15/2012 369.9 VISUAL LOSS UNSPECIFIED 05/15/2012 369.9 VISUAL LOSS UNSPECIFIED 05/15/2012 CHELSIE MACHADO APRN T 369.9 VISUAL LOSS UNSPECIFIED 05/15/2012 CHELSIE MACHADO APRN T 369.9 VISUAL LOSS UNSPECIFIED 05/15/2012 369.9 VISUAL LOSS UNSPECIFIED 05/15/2012 COREA BURKE CARMEN FROYLAN 369.9 VISUAL LOSS UNSPECIFIED 05/15/2012 CHELSIE MACHADO APRN T 369.9 Visual Loss Unspecified 05/15/2012 369.9 Visual Loss Unspecified 05/15/2012 369.9 Visual Loss Unspecified 05/15/2012 369.9 Visual Loss Unspecified 05/15/2012 369.9 Visual Loss Unspecified 05/15/2012 369.9 Visual Loss Unspecified 05/15/2012 369.9 Visual Loss Unspecified 05/15/2012 COREACARMEN SAGE APRN 369.9 Visual Loss Unspecified 05/15/2012 CHELSIE MACHADO APRN 369.9 Visual Loss Unspecified 05/15/2012 COREA CARMEN TURK 369.9 Visual Loss Unspecified 05/15/2012 CHELSIE MACHADO APRN 369.9 Visual Loss Unspecified 05/15/2012 CHELSIE MACHADO APRN 369.9 Visual Loss Unspecified 05/15/2012 CHELSIE MACHADO APRN T 369.9 Visual Loss Unspecified 05/15/2012 KRYSTA TURK HALINA R 369.9 Visual Loss Unspecified 05/15/2012 CHELSIE MACHADO APRN T 369.9 Visual Loss Unspecified 05/15/2012 COREA DENTAL FLOSS PACKERCARMEN Trevino 369.9 Visual Loss Unspecified 05/15/2012 COREA CARMEN TURK 369.9 Visual Loss Unspecified 05/15/2012 CHELSIE MACHADO APRN 369.9 Visual Loss Unspecified 05/15/2012 SUZANNEJANEL FRANCO APRN 369.9 Visual Loss Unspecified 05/15/2012 CHELSIE MACHADO APRN T 369.9 Visual Loss Unspecified 05/15/2012 CHELSIE MACHADO APRN 369.9 Visual Loss Unspecified 05/15/2012 CHELSIE MACHADO APRN 369.9 Visual Loss Unspecified 06/11/2012 Ot 401.9 HYPERTENSION NOS 06/30/2012 Ot 250.00 DIAB GLENDY WO COMPL, TYPE II OR UNSPEC TY 06/30/2012 Ot 401.9 HYPERTENSION NOS 06/30/2012 Ot 786.50 CHEST PAIN NOS 06/30/2012 Ot 786.52 PAINFUL RESPIRATION 09/08/2012 CHELSIE MACHADO APRN 296.32 MO DEPRESSIVE RECURRENT MODERATE 09/08/2012 CHELSIE MACHADO APRN 296.32 MO DEPRESSIVE RECURRENT MODERATE 09/08/2012 296.32 MO DEPRESSIVE RECURRENT MODERATE 09/08/2012 CARMEN COREA APRN 296.32 MO DEPRESSIVE RECURRENT MODERATE 09/08/2012 CHELSIE MACHADO APRN 296.32 MO DEPRESSIVE RECURRENT MODERATE 09/08/2012 296.32 MO DEPRESSIVE RECURRENT MODERATE 09/08/2012 296.32 MO DEPRESSIVE RECURRENT MODERATE 09/08/2012 296.32 MO DEPRESSIVE RECURRENT MODERATE 09/08/2012 296.32 MO DEPRESSIVE RECURRENT MODERATE 09/08/2012 296.32 MO DEPRESSIVE RECURRENT MODERATE 09/08/2012 296.32 MO DEPRESSIVE RECURRENT MODERATE 09/08/2012 CARMEN COREA APRN 296.32 MO DEPRESSIVE RECURRENT MODERATE 09/08/2012 CHELSIE MACHADO APRN 296.32 MO DEPRESSIVE RECURRENT MODERATE 09/08/2012 CARMEN COREA APRN 296.32 MO DEPRESSIVE RECURRENT MODERATE 09/08/2012 CHELSIE MACHADO APRN 296.32 MO DEPRESSIVE RECURRENT MODERATE 09/08/2012 CHELSIE MACHADO APRN 296.32 MO DEPRESSIVE RECURRENT MODERATE 09/08/2012 CHELSIE MACHADO APRN 296.32 MO DEPRESSIVE RECURRENT MODERATE 09/08/2012 HALINA CHAPARRO APRN R 296.32 MO DEPRESSIVE RECURRENT MODERATE 09/08/2012 CHELSIE MACHADO APRN 296.32 MO DEPRESSIVE RECURRENT MODERATE 09/08/2012 CARMEN COREA APRN 296.32 MO DEPRESSIVE RECURRENT MODERATE 09/08/2012 CARMEN COREA APRN 296.32 MO DEPRESSIVE RECURRENT MODERATE 09/08/2012 CHELSIE MACHADO APRN 296.32 MO DEPRESSIVE RECURRENT MODERATE 09/08/2012 JANEL PALACIOS APRN 296.32 MO DEPRESSIVE RECURRENT MODERATE 09/08/2012 CHELSIE MACHADO APRN 296.32 MO DEPRESSIVE RECURRENT MODERATE 09/08/2012 CHELSIE MACHADO APRN 296.32 MO DEPRESSIVE RECURRENT MODERATE 09/08/2012 CHELSIE MACHADO APRN 296.32 MO DEPRESSIVE RECURRENT MODERATE 09/14/2012 CHELSIE MACHADO APRN 250.00 DIABETES II CONTROLLED (UNCOMPLICATED) 09/14/2012 CHELSIE MACHADO APRN 250.00 DIABETES II CONTROLLED (UNCOMPLICATED) 09/14/2012 250.00 DIABETES II CONTROLLED (UNCOMPLICATED) 09/14/2012 CARMEN COREA APRN 250.00 DIABETES II CONTROLLED (UNCOMPLICATED ) 09/14/2012 CHELSIE MACHADO APRN 250.00 DIABETES II CONTROLLED (UNCOMPLICATED) 09/14/2012 250.00 DIABETES II CONTROLLED (UNCOMPLICATED) 09/14/2012 250.00 DIABETES II CONTROLLED (UNCOMPLICATED) 09/14/2012 250.00 DIABETES II CONTROLLED (UNCOMPLICATED) 09/14/2012 250.00 DIABETES II CONTROLLED (UNCOMPLICATED) 09/14/2012 250.00 DIABETES II CONTROLLED (UNCOMPLICATED) 09/14/2012 250.00 DIABETES II CONTROLLED (UNCOMPLICATED) 09/14/2012 CARMEN COREA APRN 250.00 DIABETES II CONTROLLED (UNCOMPLICATED ) 09/14/2012 HCELSIE MACHADO APRN 250.00 DIABETES II CONTROLLED (UNCOMPLICATED) 09/14/2012 CARMEN COREA APRN 250.00 DIABETES II CONTROLLED (UNCOMPLICATED ) 09/14/2012 CHELSIE MACHADO APRN 250.00 DIABETES II CONTROLLED (UNCOMPLICATED) 09/14/2012 CHELSIE MACHADO APRN 250.00 DIABETES II CONTROLLED (UNCOMPLICATED) 09/14/2012 CHELSIE MACHADO APRN 250.00 DIABETES II CONTROLLED (UNCOMPLICATED) 09/14/2012 HALINA CHAPARRO APRN 250.00 DIABETES II CONTROLLED (UNCOMPLICATED) 09/14/2012 CHELSIE MACHADO APRN 250.00 DIABETES II CONTROLLED (UNCOMPLICATED) 09/14/2012 CARMEN COREA APRN 250.00 DIABETES II CONTROLLED (UNCOMPLICATED ) 09/14/2012 CARMEN COREA APRN 250.00 DIABETES II CONTROLLED (UNCOMPLICATED ) 09/14/2012 CHELSIE MACHADO APRN 250.00 DIABETES II CONTROLLED (UNCOMPLICATED) 09/14/2012 JANEL PALACIOS APRN 250.00 DIABETES II CONTROLLED (UNCOMPLICATED) 09/14/2012 CHELSIE MACHADO APRN 250.00 DIABETES II CONTROLLED (UNCOMPLICATED) 09/14/2012 CHELSIE MACHADO APRN 250.00 DIABETES II CONTROLLED (UNCOMPLICATED) 09/14/2012 CHELSIE MACHADO APRN 250.00 DIABETES II CONTROLLED (UNCOMPLICATED) 11/16/2012 780.52 INSOMNIA UNSPECIFIED 11/16/2012 NAHOMY TURK CARMEN FROYLAN 780.52 INSOMNIA UNSPECIFIED 11/16/2012 CHELSIE MACHADO APRN 780.52 INSOMNIA UNSPECIFIED 11/16/2012 780.52 INSOMNIA UNSPECIFIED 11/16/2012 780.52 INSOMNIA UNSPECIFIED 11/16/2012 780.52 INSOMNIA UNSPECIFIED 11/16/2012 780.52 INSOMNIA UNSPECIFIED 11/16/2012 780.52 INSOMNIA UNSPECIFIED 11/16/2012 780.52 INSOMNIA UNSPECIFIED 11/16/2012 NAHOMY TURK CARMEN FROYLAN 780.52 INSOMNIA UNSPECIFIED 11/16/2012 CHELSIE MACHADO APRN 780.52 INSOMNIA UNSPECIFIED 11/16/2012 NAHOMY TURK CARMEN FROYLAN 780.52 INSOMNIA UNSPECIFIED 11/16/2012 CHELSIE MACHADO APRN 780.52 INSOMNIA UNSPECIFIED 11/16/2012 CHELSIE MACHADO APRN 780.52 INSOMNIA UNSPECIFIED 11/16/2012 CHELSIE MACHADO APRN T 780.52 INSOMNIA UNSPECIFIED 11/16/2012 KRYSTA TURK HALINA R 780.52 INSOMNIA UNSPECIFIED 11/16/2012 CHELSIE MACHADO APRN 780.52 INSOMNIA UNSPECIFIED 11/16/2012 NAHOMY TURK CARMEN RITTERH 780.52 INSOMNIA UNSPECIFIED 11/16/2012 NAHOMY TURK CARMEN FROYLAN 780.52 INSOMNIA UNSPECIFIED 11/16/2012 CHELSIE MACHADO APRN 780.52 INSOMNIA UNSPECIFIED 11/16/2012 JANEL PALACIOS APRN 780.52 INSOMNIA UNSPECIFIED 11/16/2012 CHELSIE MACHADO APRN T 780.52 INSOMNIA UNSPECIFIED 11/16/2012 CHELSIE MACHADO APRN 780.52 INSOMNIA UNSPECIFIED 11/16/2012 CHELSIE MACHADO APRN 780.52 INSOMNIA UNSPECIFIED 08/05/2013 CHELSIE MACHADO APRN 780.93 MEMORY LOSS 08/05/2013 NAHOMY TURK CARMEN FROYLAN 780.93 MEMORY LOSS 08/05/2013 CHELSIE MACHADO APRN 780.93 MEMORY LOSS 08/05/2013 CHELSIE MACHADO APRN 780.93 MEMORY LOSS 08/05/2013 CHELSIE MACHADO APRN 780.93 MEMORY LOSS 08/05/2013 KRYSTA TURK HALINA R 780.93 MEMORY LOSS 08/05/2013 CHELSIE MACHADO APRN T 780.93 MEMORY LOSS 08/05/2013 NAHOMY TURK CARMEN RITTERH 780.93 MEMORY LOSS 08/05/2013 NAHOMY TURK CARMEN RITTERH 780.93 MEMORY LOSS 08/05/2013 CHELSIE MACHADO APRN T 780.93 MEMORY LOSS 08/05/2013 JANEL PALACIOS APRN 780.93 MEMORY LOSS 08/05/2013 CHELSIE MACHADO APRN T 780.93 MEMORY LOSS 08/05/2013 CHELSIE MACHADO APRN T 780.93 MEMORY LOSS 08/05/2013 CHELSIE MACHADO APRN 780.93 MEMORY LOSS 10/23/2013 CHELSIE MACHADO APRN 487.1 INFLUENZA 10/23/2013 CHELSIE MACHADO APRN 487.1 INFLUENZA 10/23/2013 HALINA CHAPARRO APRN R 487.1 INFLUENZA 10/23/2013 CHELSIE MACHADO APRN 487.1 INFLUENZA 10/23/2013 NAHOMY TURK CARMEN FROYLAN 487.1 INFLUENZA 10/23/2013 NAHOMY TURK CARMEN FROYLAN 487.1 INFLUENZA 10/23/2013 CHELSIE MACHADO APRN 487.1 INFLUENZA 10/23/2013 JANEL PALACIOS APRN 487.1 INFLUENZA 10/23/2013 CHELSIE MACHADO APRN 487.1 INFLUENZA 10/23/2013 CHELSIE MACHADO APRN 487.1 INFLUENZA 10/23/2013 CHELSIE MACHADO APRN 487.1 INFLUENZA 02/22/2014 KALEB CARD, JAYCE Hyatt Ot 250.00 DIAB GLENDY WO COMPL, TYPE II OR UNSPEC TY 02/22/2014 KALEB CARD, JAYCE A Ot 278.00 OBESITY, NOS 02/22/2014 JAYCE MANUEL MD Ot 790.29 OTHER ABNORMAL GLUCOSE 02/22/2014 KALEB CARD, JAYCE Hyatt Ot V85.39 BODY MASS INDEX 39.0-39.9, ADULT 03/19/2014 KRYSTA TURK HALINA R 783.21 LOSS OF WEIGHT 03/19/2014 KRYSTA TRUK HALINA R 787.91 DIARRHEA 03/19/2014 CHELSIE MACHADO APRN T 783.21 LOSS OF WEIGHT 03/19/2014 CHELSIE MACAHDO APRN 787.91 DIARRHEA 03/19/2014 CARMEN COREA APRN 783.21 LOSS OF WEIGHT 03/19/2014 CARMEN COREA APRN 787.91 DIARRHEA 03/19/2014 CARMEN COREA APRN 783.21 LOSS OF WEIGHT 03/19/2014 CARMEN COREA APRN 787.91 DIARRHEA 03/19/2014 JEANNETTE CHELSIE TURK T 783.21 LOSS OF WEIGHT 03/19/2014 CHELSIE MACHADO APRN T 787.91 DIARRHEA 03/19/2014 SUZANNE DENTAL FLOSS PACKER, JANEL 783.21 LOSS OF WEIGHT 03/19/2014 SUZANNE DENTAL FLOSS PACKER, JANEL 787.91 DIARRHEA 03/19/2014 CHELSIE MACHADO APRN T 783.21 LOSS OF WEIGHT 03/19/2014 CHELSIE MACHADO APRN T 787.91 DIARRHEA 03/19/2014 JEANNETTE DENTAL FLOSS PACKERCHELSIE Trevino T 783.21 LOSS OF WEIGHT 03/19/2014 CHELSIE MACHADO APRN T 787.91 DIARRHEA 03/19/2014 CHELSIE MACHADO APRN T 783.21 LOSS OF WEIGHT 03/19/2014 CHELSIE MACHADO APRN T 787.91 DIARRHEA 08/19/2014 Ot 780.93 08/19/2014 Ot 780.93 09/16/2014 Ot 780.93 11/28/2014 CHELSIE MACHADO APRN 357.9 NEUROPATHY UNSP 11/28/2014 CHELSIE MACHADO APRN 357.9 NEUROPATHY UNSP 11/28/2014 CHELSIE MACHADO APRN 357.9 NEUROPATHY UNSP 12/25/2014 CHELSIE MACHADO APRN V81.1 HYPERTENSION SCREENING 12/25/2014 CHELSIE MACHADO APRN V81.1 HYPERTENSION SCREENING 05/08/2015 SVITLANA CARD, PAUL Lopez Ot 786.50 CHEST PAIN NOS 05/08/2015 CHELSIE MACHADO CASE MANAGEMENT DIRECTOR Ot 780.93 05/08/2015 CHELSIE MACHADO CASE MANAGEMENT DIRECTOR Ot V81.5 05/26/2015 CHELSIE MACHADO CASE MANAGEMENT DIRECTOR Ot 780.93 05/26/2015 CHELSIE MACHADOP Ot V81.5 06/27/2015 CHELSIE MACHADO Ot G47.10 HYPERSOMNIA, UNSPECIFIED 06/27/2015 CHELSIE MACHADO Ot R06.83 SNORING 07/20/2015 CHELSIE MACHADO CASE MANAGEMENT DIRECTOR Ot 780.93 07/20/2015 CHELSIE MACHADO CASE MANAGEMENT DIRECTOR Ot V81.5 10/16/2015 CELINE DAS, ALI FACP CCDS Ot R07.89 10/20/2015 CELINE CARD FACC, ALI FACP CCDS Ot E11.9 TYPE 2 DIABETES MELLITUS WITHOUT COMPLIC 10/20/2015 CELINE CARD FACC, ALI FACP CCDS Ot E78.5 HYPERLIPIDEMIA, UNSPECIFIED 10/20/2015 CELINE CARD FACC, ALI FACP CCDS Ot I10 ESSENTIAL (PRIMARY) HYPERTENSION 10/20/2015 CELINE CARD FACC, ALI FACP CCDS Ot R06.00 DYSPNEA, UNSPECIFIED 10/20/2015 CELINE CARD FACC, ALI FACP CCDS Ot R07.89 OTHER CHEST PAIN 10/20/2015 CELINE CARD FACC, ALI FACP CCDS Ot R94.39 ABNORMAL RESULT OF OTHER CARDIOVASCULAR 10/20/2015 CELINE CARD FACC, ALI FACP CCDS Ot Z79.899 OTHER CUSTODIAL (CURRENT) DRUG THERAPY 10/20/2015 CELINE CARD FACC, ALI FACP CCDS Ot Z87.891 PERSONAL HISTORY OF NICOTINE DEPENDENCE 11/06/2015 CHELSIE MACHADO CASE MANAGEMENT DIRECTOR Ot 780.93 11/06/2015 CHELSIE MACHADO CASE MANAGEMENT DIRECTOR Ot V81.5 11/06/2015 YOLANDA MENDOZA CASE MANAGEMENT DIRECTOR Ot E78.5 11/06/2015 YOLANDA MENDOZA CASE MANAGEMENT DIRECTOR Ot E87.6 11/06/2015 YOLANDA MENDOZA CASE MANAGEMENT DIRECTOR Ot I10 11/06/2015 YOLANDA MENDOZA CASE MANAGEMENT DIRECTOR Ot R07.9 11/06/2015 YOLANDA MENDOZA L CASE MANAGEMENT DIRECTOR Ot R10.30 11/06/2015 CELINE CARD FACC, ALI FACP CCDS Ot R07.89 12/01/2015 SVITLANA CARD, PAUL Lopez Ot F13.239 SEDATV/HYP/ANXIOLYTC DEPENDENCE W WITHDR 12/04/2015 CELINE CARD FACC, ALI FACP CCDS Ot R07.89 12/04/2015 YOLANDA MENDOZA CASE MANAGEMENT DIRECTOR Ot E78.5 12/04/2015 YOLANDA MENDOZA L CASE MANAGEMENT DIRECTOR Ot E87.6 12/04/2015 YOLANDA MENDOZA L CASE MANAGEMENT DIRECTOR Ot I10 12/04/2015 YOLANDA MENDOZA L CASE MANAGEMENT DIRECTOR Ot R07.9 12/04/2015 BAIYOLANDA SILVA CASE MANAGEMENT DIRECTOR Ot R10.30 12/05/2015 SVITLANA CARD, PAUL Lopez Ot F13.239 12/15/2015 CHELSIE MACHADO CASE MANAGEMENT DIRECTOR Ot N63 12/15/2015 CHELSIE MACHADO CASE MANAGEMENT DIRECTOR Ot R07.89 12/15/2015 CHELSIE MACHADO CASE MANAGEMENT DIRECTOR Ot R22.2 01/06/2016 CELINE CARD [facility], ALI [facility] CCDS Ot R07.89 01/06/2016 YOLANDA MENDOZA CASE MANAGEMENT DIRECTOR Ot E78.5 01/06/2016 BAIRICARDO YOLANDA L CASE MANAGEMENT DIRECTOR Ot E87.6 01/06/2016 BAIRICARDO YOLANDA L CASE MANAGEMENT DIRECTOR Ot I10 01/06/2016 YOLANDA MENDOZA L CASE MANAGEMENT DIRECTOR Ot R07.9 01/06/2016 YOLANDA MENDOZA CASE MANAGEMENT DIRECTOR Ot R10.30 01/06/2016 CHELSIE MACHADO CASE MANAGEMENT DIRECTOR Ot N63 01/06/2016 CHELSIE MACHADO CASE MANAGEMENT DIRECTOR Ot R07.89 01/06/2016 CHELSIE MACHADO CASE MANAGEMENT DIRECTOR Ot R22.2 01/06/2016 LAURITA RICHARDS DO Ot E11.9 TYPE 2 DIABETES MELLITUS WITHOUT COMPLIC 01/06/2016 LAURITA RICHARDS DO K Ot F41.9 ANXIETY DISORDER, UNSPECIFIED 01/06/2016 LAURITA RICHARDS DO K Ot R10.12 LEFT UPPER QUADRANT PAIN 01/06/2016 LAURITA RICHARDS DO K Ot R11.0 NAUSEA 01/06/2016 LAURITA RICHARDS DO K Ot Z87.891 PERSONAL HISTORY OF NICOTINE DEPENDENCE 01/06/2016 CELINE CARD [facility], ALI [facility] CCDS Ot R07.89 01/06/2016 YOLANDA MENDOZA CASE MANAGEMENT DIRECTOR Ot E78.5 01/06/2016 YOLANDA MENDOZA L CASE MANAGEMENT DIRECTOR Ot E87.6 01/06/2016 YOLANDA MENDOZA CASE MANAGEMENT DIRECTOR Ot I10 01/06/2016 YOLANDA MENDOZA CASE MANAGEMENT DIRECTOR Ot R07.9 01/06/2016 YOLANDA MENDOZA CASE MANAGEMENT DIRECTOR Ot R10.30 01/06/2016 CHELSIE MACHADO CASE MANAGEMENT DIRECTOR Ot N63 01/06/2016 CHELSIE MACHADO CASE MANAGEMENT DIRECTOR Ot R07.89 01/06/2016 CHELSIE MACHADO CASE MANAGEMENT DIRECTOR Ot R22.2 01/07/2016 MAURICE DO, LAURITA K Ot E11.9 01/07/2016 MAURICE DO, LAURITA K Ot F41.9 01/07/2016 MAURICE DO, LAURITA K Ot R10.12 01/07/2016 MAURICE DO, LAURITA K Ot R11.0 01/07/2016 MAURICE DO, LAURITA K Ot Z87.891 01/07/2016 MAURICE DO, LAURITA K Ot E11.9 01/07/2016 MAURICE DO, LAURITA K Ot F41.9 01/07/2016 MAURICE DO, LAURITA K Ot R10.12 01/07/2016 MAURICE DO, LAURITA K Ot R11.0 01/07/2016 MAURICE DO, LAURITA K Ot Z87.891 01/11/2016 CELINE CARD FAC, NIXON WOODARD CCDS Ot R07.89 OTHER CHEST PAIN 01/11/2016 BAIMA, YOLANDA L CASE MANAGEMENT DIRECTOR Ot E78.5 HYPERLIPIDEMIA, UNSPECIFIED 01/11/2016 BAIMA, YOLANDA L CASE MANAGEMENT DIRECTOR Ot E87.6 HYPOKALEMIA 01/11/2016 BAIMA, YOLANDA L CASE MANAGEMENT DIRECTOR Ot I10 ESSENTIAL (PRIMARY) HYPERTENSION 01/11/2016 BAIMA, YOLANDA L CASE MANAGEMENT DIRECTOR Ot R07.9 CHEST PAIN, UNSPECIFIED 01/11/2016 BAIMA, YOLANDA L CASE MANAGEMENT DIRECTOR Ot R10.30 LOWER ABDOMINAL PAIN, UNSPECIFIED 01/11/2016 CHELSIE MACHADO CASE MANAGEMENT DIRECTOR Ot N63 UNSPECIFIED LUMP IN BREAST 01/11/2016 CHELSIE MACHADO CASE MANAGEMENT DIRECTOR Ot R07.89 OTHER CHEST PAIN 01/11/2016 CHELSIE MACHADO CASE MANAGEMENT DIRECTOR Ot R22.2 LOCALIZED SWELLING, MASS AND LUMP, TRUNK 01/11/2016 BAIMA, YOLANDA L CASE MANAGEMENT DIRECTOR Ot E78.5 HYPERLIPIDEMIA, UNSPECIFIED 01/11/2016 BAIMA, YOLANDA L CASE MANAGEMENT DIRECTOR Ot E87.6 HYPOKALEMIA 01/11/2016 BAIMA, YOLANDA L CASE MANAGEMENT DIRECTOR Ot I10 ESSENTIAL (PRIMARY) HYPERTENSION 01/11/2016 BAIMA, YOLANDA L CASE MANAGEMENT DIRECTOR Ot R07.9 CHEST PAIN, UNSPECIFIED 01/11/2016 BAIMA, YOLANDA L CASE MANAGEMENT DIRECTOR Ot R10.30 LOWER ABDOMINAL PAIN, UNSPECIFIED 01/11/2016 CHELSIE MACHADO CASE MANAGEMENT DIRECTOR Ot N63 UNSPECIFIED LUMP IN BREAST 01/11/2016 JEANNETTE CHELSIE Tremaine CASE MANAGEMENT DIRECTOR Ot R07.89 OTHER CHEST PAIN 01/11/2016 JEANNETTE CHELSIE Penaloza CASE MANAGEMENT DIRECTOR Ot R22.2 LOCALIZED SWELLING, MASS AND LUMP, TRUNK 01/11/2016 JEANNETTE CHELSIE Tremaine CASE MANAGEMENT DIRECTOR Ot 780.93 MEMORY LOSS 01/11/2016 JEANNETTECHELSIE CASE MANAGEMENT DIRECTOR Ot V81.5 SCREEN FOR NEPHROPATHY 01/11/2016 CELINE CARD FAC, ALI [facility] CCDS Ot R07.89 OTHER CHEST PAIN 01/11/2016 BAIMA YOLANDA L CASE MANAGEMENT DIRECTOR Ot E78.5 HYPERLIPIDEMIA, UNSPECIFIED 01/11/2016 BAIMA, YOLANDA L CASE MANAGEMENT DIRECTOR Ot E87.6 HYPOKALEMIA 01/11/2016 BAIMA, YOLANDA L CASE MANAGEMENT DIRECTOR Ot I10 ESSENTIAL (PRIMARY) HYPERTENSION 01/11/2016 BAIMA YOLANDA L CASE MANAGEMENT DIRECTOR Ot R07.9 CHEST PAIN, UNSPECIFIED 01/11/2016 BAIMA, YOLANDA L CASE MANAGEMENT DIRECTOR Ot R10.30 LOWER ABDOMINAL PAIN, UNSPECIFIED 01/11/2016 CHELSIE MACHADO CASE MANAGEMENT DIRECTOR Ot N63 UNSPECIFIED LUMP IN BREAST 01/11/2016 CHELSIE MACHADO CASE MANAGEMENT DIRECTOR Ot R07.89 OTHER CHEST PAIN 01/11/2016 JEANNETTE CHELSIE Tremaine CASE MANAGEMENT DIRECTOR Ot R22.2 LOCALIZED SWELLING, MASS AND LUMP, TRUNK 01/21/2016 CELINE CARD [facility], ALI FAC CCDS Ot R07.89 OTHER CHEST PAIN 01/21/2016 BAIMA YOLANDA L CASE MANAGEMENT DIRECTOR Ot E78.5 HYPERLIPIDEMIA, UNSPECIFIED 01/21/2016 BAIMA, YOLANDA L CASE MANAGEMENT DIRECTOR Ot E87.6 HYPOKALEMIA 01/21/2016 BAIMA YOLANDA L CASE MANAGEMENT DIRECTOR Ot I10 ESSENTIAL (PRIMARY) HYPERTENSION 01/21/2016 BAIMA YOLANDA L CASE MANAGEMENT DIRECTOR Ot R07.9 CHEST PAIN, UNSPECIFIED 01/21/2016 BAIMA, YOLANDA L CASE MANAGEMENT DIRECTOR Ot R10.30 LOWER ABDOMINAL PAIN, UNSPECIFIED 01/22/2016 CHELSIE MACHADO CASE MANAGEMENT DIRECTOR Ot N63 UNSPECIFIED LUMP IN BREAST 01/22/2016 CHELSIE MACHADO CASE MANAGEMENT DIRECTOR Ot R07.89 OTHER CHEST PAIN 01/22/2016 CHELSIE MACHADO CASE MANAGEMENT DIRECTOR Ot R22.2 LOCALIZED SWELLING, MASS AND LUMP, TRUNK 02/04/2016 CELINE CARD FAC, ALI FAC CCDS Ot R07.89 OTHER CHEST PAIN 02/04/2016 BAIYOLANDA SILVA L CASE MANAGEMENT DIRECTOR Ot E78.5 HYPERLIPIDEMIA, UNSPECIFIED 02/04/2016 BAIMA YOLANDA L CASE MANAGEMENT DIRECTOR Ot E87.6 HYPOKALEMIA 02/04/2016 BAIMA YOLANDA L CASE MANAGEMENT DIRECTOR Ot I10 ESSENTIAL (PRIMARY) HYPERTENSION 02/04/2016 BAIMAYOLANDA L CASE MANAGEMENT DIRECTOR Ot R07.9 CHEST PAIN, UNSPECIFIED 02/04/2016 BAIMA YOLANDA L CASE MANAGEMENT DIRECTOR Ot R10.30 LOWER ABDOMINAL PAIN, UNSPECIFIED 02/04/2016 CHELSIE MACHADO CASE MANAGEMENT DIRECTOR Ot N63 UNSPECIFIED LUMP IN BREAST 02/04/2016 CHELSIE MACHADO CASE MANAGEMENT DIRECTOR Ot R07.89 OTHER CHEST PAIN 02/04/2016 CHELSIE MACHADO CASE MANAGEMENT DIRECTOR Ot R22.2 LOCALIZED SWELLING, MASS AND LUMP, TRUNK 02/15/2016 JOSAFAT JUAREZ DO Ot N63 UNSPECIFIED LUMP IN BREAST 02/15/2016 JOSAFAT JUAREZ DO Ot Z01.818 ENCOUNTER FOR OTHER PREPROCEDURAL EXAMIN 02/15/2016 JOSAFAT JUAREZ DO Ot Z11.2 ENCOUNTER FOR SCREENING FOR OTHER BACTER 02/18/2016 JOSAFAT JUAREZ DO Ot D17.1 BENIGN LIPOMATOUS NEOPLASM OF SKIN, SUBC 02/18/2016 JOSAFAT JUAREZ DO Ot Z79.899 OTHER CUSTOM GRINDER (CURRENT) DRUG THERAPY 02/19/2016 JUAREZ JOSAFAT CANAS Ot D17.1 BENIGN LIPOMATOUS NEOPLASM OF SKIN, SUBC 02/19/2016 JOSAFAT JUAREZ DO Ot Z79.899 OTHER CUSTOM GRINDER (CURRENT) DRUG THERAPY 03/01/2016 CHELSIE MACHADO CASE MANAGEMENT DIRECTOR Ot 780.93 MEMORY LOSS 03/01/2016 CHELSIE MACHADOP Ot V81.5 SCREEN FOR NEPHROPATHY 03/01/2016 CELINE CARD FACNIXON Rm FACP CCDS Ot R07.89 OTHER CHEST PAIN 03/01/2016 BAIYOLANDA SILVA CASE MANAGEMENT DIRECTOR Ot E78.5 HYPERLIPIDEMIA, UNSPECIFIED 03/01/2016 BAIYOLANDA SILVA L CASE MANAGEMENT DIRECTOR Ot E87.6 HYPOKALEMIA 03/01/2016 BAIKARI SILVAHER L CASE MANAGEMENT DIRECTOR Ot I10 ESSENTIAL (PRIMARY) HYPERTENSION 03/01/2016 BAIYOLANDA SILVA L CASE MANAGEMENT DIRECTOR Ot R07.9 CHEST PAIN, UNSPECIFIED 03/01/2016 BAIMA YOLANDA L CASE MANAGEMENT DIRECTOR Ot R10.30 LOWER ABDOMINAL PAIN, UNSPECIFIED 03/01/2016 CHELSIE MACHADO CASE MANAGEMENT DIRECTOR Ot N63 UNSPECIFIED LUMP IN BREAST 03/01/2016 CHELSIE MACHADO CASE MANAGEMENT DIRECTOR Ot R07.89 OTHER CHEST PAIN 03/01/2016 CHELSIE MACHADO CASE MANAGEMENT DIRECTOR Ot R22.2 LOCALIZED SWELLING, MASS AND LUMP, TRUNK 03/01/2016 JUAREZ DO, JOSAFAT D Ot N63 UNSPECIFIED LUMP IN BREAST 03/01/2016 CELINE CARD [facility], [facility] CCDS Ot R07.89 OTHER CHEST PAIN 03/01/2016 BAIMA, YOLANDA L CASE MANAGEMENT DIRECTOR Ot E78.5 HYPERLIPIDEMIA, UNSPECIFIED 03/01/2016 BAIMA, YOLANDA L CASE MANAGEMENT DIRECTOR Ot E87.6 HYPOKALEMIA 03/01/2016 BAIMA, YOLANDA L CASE MANAGEMENT DIRECTOR Ot I10 ESSENTIAL (PRIMARY) HYPERTENSION 03/01/2016 BAIMA, YOLANDA L CASE MANAGEMENT DIRECTOR Ot R07.9 CHEST PAIN, UNSPECIFIED 03/01/2016 BAIMA, YOLANDA L CASE MANAGEMENT DIRECTOR Ot R10.30 LOWER ABDOMINAL PAIN, UNSPECIFIED 03/01/2016 CHELSIE MACHADO CASE MANAGEMENT DIRECTOR Ot N63 UNSPECIFIED LUMP IN BREAST 03/01/2016 CHELSIE MACHADO CASE MANAGEMENT DIRECTOR Ot R07.89 OTHER CHEST PAIN 03/01/2016 CHELSIE MACHADO CASE MANAGEMENT DIRECTOR Ot R22.2 LOCALIZED SWELLING, MASS AND LUMP, TRUNK 03/01/2016 LAMOURE JOSAFAT CANAS Ot N63 UNSPECIFIED LUMP IN BREAST 04/20/2016 CHELSIE MACHADO CASE MANAGEMENT DIRECTOR Ot 780.93 MEMORY LOSS 04/20/2016 CHELSIE MACHADO CASE MANAGEMENT DIRECTOR Ot V81.5 SCREEN FOR NEPHROPATHY 04/20/2016 CELINE CARD [facility] CCDS Ot R07.89 OTHER CHEST PAIN 04/20/2016 BAIMA, YOLANDA L CASE MANAGEMENT DIRECTOR Ot E78.5 HYPERLIPIDEMIA, UNSPECIFIED 04/20/2016 BAIMA, YOLANDA L CASE MANAGEMENT DIRECTOR Ot E87.6 HYPOKALEMIA 04/20/2016 BAIMA, YOLANDA L CASE MANAGEMENT DIRECTOR Ot I10 ESSENTIAL (PRIMARY) HYPERTENSION 04/20/2016 BAIMA, YOLANDA L CASE MANAGEMENT DIRECTOR Ot R07.9 CHEST PAIN, UNSPECIFIED 04/20/2016 BAIMA, YOLANDA L CASE MANAGEMENT DIRECTOR Ot R10.30 LOWER ABDOMINAL PAIN, UNSPECIFIED 04/20/2016 CHELSIE MACHADO CASE MANAGEMENT DIRECTOR Ot N63 UNSPECIFIED LUMP IN BREAST 04/20/2016 CHELSIE MACHADO CASE MANAGEMENT DIRECTOR Ot R07.89 OTHER CHEST PAIN 04/20/2016 CHELSIE MACHADO CASE MANAGEMENT DIRECTOR Ot R22.2 LOCALIZED SWELLING, MASS AND LUMP, TRUNK 04/20/2016 JOSAFAT JUAREZ DO Ot N63 UNSPECIFIED LUMP IN BREAST 12/19/2016 CELINE CARD [facility], [facility] CCDS Ot R07.89 OTHER CHEST PAIN 12/19/2016 BAIRICARDO YOLANDA L CASE MANAGEMENT DIRECTOR Ot E78.5 HYPERLIPIDEMIA, UNSPECIFIED 12/19/2016 BAIRICARDO YOLANDA L CASE MANAGEMENT DIRECTOR Ot E87.6 HYPOKALEMIA 12/19/2016 REJI YOLANDA L CASE MANAGEMENT DIRECTOR Ot I10 ESSENTIAL (PRIMARY) HYPERTENSION 12/19/2016 IKERRICARDO YOLANDA L CASE MANAGEMENT DIRECTOR Ot R07.9 CHEST PAIN, UNSPECIFIED 12/19/2016 YOLANDA MENDOZA CASE MANAGEMENT DIRECTOR Ot R10.30 LOWER ABDOMINAL PAIN, UNSPECIFIED 12/19/2016 CHELSIE MACHADO CASE MANAGEMENT DIRECTOR Ot N63 UNSPECIFIED LUMP IN BREAST 12/19/2016 CHELSIE MACHADO CASE MANAGEMENT DIRECTOR Ot R07.89 OTHER CHEST PAIN 12/19/2016 CHELSIE MACHADO CASE MANAGEMENT DIRECTOR Ot R22.2 LOCALIZED SWELLING, MASS AND LUMP, TRUNK 12/19/2016 JOSAFAT JUAREZ DO Ot N63 UNSPECIFIED LUMP IN BREAST 12/19/2016 LUISITO ROBERTS Ot E11.9 TYPE 2 DIABETES MELLITUS WITHOUT COMPLIC 12/19/2016 LUISITO ROBERTS Ot E27.9 DISORDER OF ADRENAL GLAND, UNSPECIFIED 12/19/2016 LUISITO ROBERTS Ot I10 ESSENTIAL (PRIMARY) HYPERTENSION 12/19/2016 LUISITO ROBERTS Ot K76.0 FATTY (CHANGE OF) LIVER, NOT ELSEWHERE C 12/19/2016 LUISITO ROBERTS Ot R03.1 NONSPECIFIC LOW BLOOD-PRESSURE READING 12/19/2016 LUISITO ROBERTS Ot R10.31 RIGHT LOWER QUADRANT PAIN 12/19/2016 LUISITO ROBERTS Ot Z79.84 CUSTODIAL (CURRENT) USE OF ORAL HYPOGLYC 12/19/2016 LUISITO ROBERTS Ot 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 12/19/2016 CELINE CARD [facility], [facility] CCDS Ot R07.89 OTHER CHEST PAIN 12/19/2016 BAIYOLANDA SILVA L CASE MANAGEMENT DIRECTOR Ot E78.5 HYPERLIPIDEMIA, UNSPECIFIED 12/19/2016 BAIMA, YOLANDA L CASE MANAGEMENT DIRECTOR Ot E87.6 HYPOKALEMIA 12/19/2016 BAIMA, YOLANDA L CASE MANAGEMENT DIRECTOR Ot I10 ESSENTIAL (PRIMARY) HYPERTENSION 12/19/2016 BAIMA YOLANDA L CASE MANAGEMENT DIRECTOR Ot R07.9 CHEST PAIN, UNSPECIFIED 12/19/2016 BAIMA, YOLANDA L CASE MANAGEMENT DIRECTOR Ot R10.30 LOWER ABDOMINAL PAIN, UNSPECIFIED 12/19/2016 CHELSIE MACHADO CASE MANAGEMENT DIRECTOR Ot N63 UNSPECIFIED LUMP IN BREAST 12/19/2016 CHELSIE MACHADO CASE MANAGEMENT DIRECTOR Ot R07.89 OTHER CHEST PAIN 12/19/2016 CHELSIE MACHADOP Ot R22.2 LOCALIZED SWELLING, MASS AND LUMP, TRUNK 12/19/2016 JOSAFAT JUAREZ DO Ot N63 UNSPECIFIED LUMP IN BREAST 12/28/2016 CHELSIE MACHADO CASE MANAGEMENT DIRECTOR Ot 780.93 MEMORY LOSS 12/28/2016 CHELSIE MACHADO CASE MANAGEMENT DIRECTOR Ot V81.5 SCREEN FOR NEPHROPATHY 12/28/2016 CELINE CARD [facility] CCDS Ot R07.89 OTHER CHEST PAIN 12/28/2016 IKERYOLANDA SILVA L CASE MANAGEMENT DIRECTOR Ot E78.5 HYPERLIPIDEMIA, UNSPECIFIED 12/28/2016 BAIRICARDO, YOLANDA L CASE MANAGEMENT DIRECTOR Ot E87.6 HYPOKALEMIA 12/28/2016 IKERRICARDO, YOLANDA L CASE MANAGEMENT DIRECTOR Ot I10 ESSENTIAL (PRIMARY) HYPERTENSION 12/28/2016 IKERRICARDOYOLANDA L CASE MANAGEMENT DIRECTOR Ot R07.9 CHEST PAIN, UNSPECIFIED 12/28/2016 BAIMA, YOLANDA L CASE MANAGEMENT DIRECTOR Ot R10.30 LOWER ABDOMINAL PAIN, UNSPECIFIED 12/28/2016 CHELSIE MACHADO CASE MANAGEMENT DIRECTOR Ot N63 UNSPECIFIED LUMP IN BREAST 12/28/2016 CHELSIE MACHADO CASE MANAGEMENT DIRECTOR Ot R07.89 OTHER CHEST PAIN 12/28/2016 CHELSIE MACHADO CASE MANAGEMENT DIRECTOR Ot R22.2 LOCALIZED SWELLING, MASS AND LUMP, TRUNK 12/28/2016 JOSAFAT JUAREZ DO Ot N63 UNSPECIFIED LUMP IN BREAST Procedures Code Description Performed By Performed On 51.23 LAPAROSCOPIC CHOLECYSTECTOMY 10/23/2009 87.53 INTRAOPER CHOLANGIOGRAM 10/23/2009 14771 PSYCH IND W/MED CK 20 07/25/2012 16690 A1C (IN-HOUSE) 57740 PSYCH PHARM MGMT 10/15/2012 Endocrinceci Kathryn Davis 10/15/2012 80235 A1C (IN-HOUSE) 94728 MICRO ALBUMIN-IN HOUSE 12/14/2012 51066 MRI BRAIN W/O & W/DYE 08/05/2013 PSYCHIATR BRYAN SD, MENTAL HEALTH 08/05/2013 73805 A1C (IN-HOUSE) 76039 INFLUENZA A & B (IN-HOUSE) 10/23/2013 51436 A1C (IN-HOUSE) 76355 MICRO ALBUMIN-IN HOUSE 02/24/2014 77373 ROUTINE VENIPUNCTURE 03/19/2014 55164 CBC 03/20/2014 [id number] GFR CALC (RESULT ONLY) 03/20/2014 67335 CMP 03/20/2014 96242 A1C (IN-HOUSE) PSYCHIATR JANEL PALACIOS 12/17/2014 Results Test Result Range Complete blood count (CBC) with automated white blood cell (WBC) differential - 12/19/16 16:25 Blood leukocytes automated count (number/volume) 8.3 10*3/ uL 4.3-11.0 Blood erythrocytes automated count (number/volume) 4.64 10*6 /uL 4.35-5.85 Venous blood hemoglobin measurement (mass/volume) 13.8 g/dL 13.3-17.7 Blood hematocrit (volume fraction) 39 % 40-54 Automated erythrocyte mean corpuscular volume 84 [foz_us] 80-99 Automated erythrocyte mean corpuscular hemoglobin (mass per erythrocyte) 30 pg 25-34 Automated erythrocyte mean corpuscular hemoglobin concentration measurement ( mass/volume) 36 g/dL 32-36 Automated erythrocyte distribution width ratio 13.3 % 10.0-14.5 Automated blood platelet count (count/volume) 295 10*3/uL 130-400 Automated blood platelet mean volume measurement 9.4 [foz_us ] 7.4-10.4 Automated blood neutrophils/100 leukocytes 49 % 42-75 Automated blood lymphocytes/100 leukocytes 38 % 12-44 Blood monocytes/100 leukocytes 7 % 0-12 Automated blood eosinophils/100 leukocytes 6 % 0-10 Automated blood basophils/100 leukocytes 1 % 0-10 Blood neutrophils automated count (number/volume) 4.1 10*3 1.8-7.8 Blood lymphocytes automated count (number/volume) 3.1 10*3 1.0-4.0 Blood monocytes automated count (number/volume) 0.6 10*3 0.0-1.0 Automated eosinophil count 0.5 10*3/uL 0.0-0.3 Automated blood basophil count (count/volume) 0.0 10*3/uL 0.0-0.1 Complete urinalysis with reflex to culture - 12/19/16 16:25 Urine color determination YELLOW NRG Urine clarity determination CLEAR NRG Urine pH measurement by test strip 6 5- 9 Specific gravity of urine by test strip 1.020 1.016-1.022 Urine protein assay by test strip, semi-quantitative NEGATIVE NEGATIVE Urine glucose detection by automated test strip 4+ NEGATIVE Erythrocytes detection in urine sediment by light microscopy NEGATIVE NEGATIVE Urine ketones detection by automated test strip 1+ NEGATIVE Urine nitrite detection by test strip NEGATIVE NEGATIVE Urine total bilirubin detection by test strip NEGATIVE NEGATIVE Urine urobilinogen measurement by automated test strip (mass/volume) NORMAL NORMAL Urine leukocyte esterase detection by dipstick NEGATIVE NEGATIVE Automated urine sediment erythrocyte count by microscopy (number/high power field) NONE NRG Automated urine sediment leukocyte count by microscopy (number/high power field ) NONE NRG Bacteria detection in urine sediment by light microscopy NEGATIVE NRG Squamous epithelial cells detection in urine sediment by light microscopy NONE NRG Crystals detection in urine sediment by light microscopy NONE NRG Casts detection in urine sediment by light microscopy NONE NRG Mucus detection in urine sediment by light microscopy NEGATIVE NRG Complete urinalysis with reflex to culture NO NRG Comprehensive metabolic panel - 12/19/16 16:25 Serum or plasma sodium measurement (moles/volume) 139 mmol/ L 135-145 Serum or plasma potassium measurement (moles/volume) 4.3 mmol/L 3.6-5.0 Serum or plasma chloride measurement (moles/volume) 102 mmol /L 98-107 Carbon dioxide 28 mmol/L 21-32 Serum or plasma anion gap determination (moles/volume) 9 mmol/L 5-14 Serum or plasma urea nitrogen measurement (mass/volume) 10 mg/dL 7-18 Serum or plasma creatinine measurement (mass/volume) 0.97 mg /dL 0.60-1.30 Serum or plasma urea nitrogen/creatinine mass ratio 10 NRG Serum or plasma creatinine measurement with calculation of estimated glomerular filtration rate > NRG Serum or plasma glucose measurement (mass/volume) 262 mg/dL 70-105 Serum or plasma calcium measurement (mass/volume) 9.5 mg/dL 8.5-10.1 Serum or plasma total bilirubin measurement (mass/volume) 0.4 mg/dL 0.1-1.0 Serum or plasma alkaline phosphatase measurement (enzymatic activity/volume) 84 U/L 40-136 Serum or plasma aspartate aminotransferase measurement (enzymatic activity/ volume) 33 U/L 5-34 Serum or plasma alanine aminotransferase measurement (enzymatic activity/volume ) 54 U/L 0-55 Serum or plasma protein measurement (mass/volume) 6.7 g/dL 6.4-8.2 Serum or plasma albumin measurement (mass/volume) 3.9 g/dL 3.2-4.5 Lipase - 12/19/16 16:25 Lipase 44 U/L 8-78 Encounters ACCT No. Visit Date/Time Discharge Status Pt. Type Provider Facility Loc./Unit Complaint [id number] 01/12/2015 08:56:00 01/12/2015 23: 59:59 CLS Outpatient CHELSIE MACHADO APRN [id number] 12/25/2014 17:27:00 12/25/2014 23: 59:59 CLS Outpatient CHELSIE MACHADO APRN [id number] 12/17/2014 15:01:00 12/17/2014 23: 59:59 CLS Outpatient CHELSIE MACHADO APRN [id number] 08/14/2014 09:32:00 08/14/2014 23: 59:59 CLS Outpatient JANEL PALACIOS APRN [id number] 07/18/2014 14:58:00 07/18/2014 23: 59:59 CLS Outpatient CHELSIE MACHADO APRN [id number] 06/23/2014 00:00:00 06/23/2014 23: 59:59 CLS Outpatient NAHOMY TURK CARMEN FROYLAN [id number] 04/02/2014 14:53:00 04/02/2014 23: 59:59 CLS Outpatient NAHOMY TURK CARMEN FROYLAN [id number] 03/31/2014 16:10:00 03/31/2014 23: 59:59 CLS Outpatient CHELSIE MACHADO APRN [id number] 03/19/2014 15:27:00 03/19/2014 23: 59:59 CLS Outpatient HALINA CHAPARRO APRN [id number] 02/24/2014 15:01:00 02/24/2014 23: 59:59 CLS Outpatient CHELSIE MACHADO APRN [id number] 10/23/2013 16:30:00 10/23/2013 23: 59:59 CLS Outpatient CHELSIE MACHADO APRN [id number] 08/16/2013 14:03:00 08/16/2013 23: 59:59 CLS Outpatient CARMEN COREA APRN [id number] 08/05/2013 11:15:00 08/05/2013 23: 59:59 CLS Outpatient CHELSIE MACHADO APRN [id number] 08/05/2013 11:15:00 08/05/2013 23: 59:59 CLS Outpatient CHELSIE MACHADO APRN [id number] 05/31/2013 15:39:00 05/31/2013 23: 59:59 CLS Outpatient CARMEN COREA APRN [id number] 12/14/2012 11:02:00 12/14/2012 23: 59:59 CLS Outpatient CHELSIE MACHADO APRN [id number] 11/26/2012 10:31:00 11/26/2012 23: 59:59 CLS Outpatient CARMEN COREA APRN [id number] 11/16/2012 09:58:00 11/16/2012 23: 59:59 CLS Outpatient [id number] 10/15/2012 11:11:00 10/15/2012 23: 59:59 CLS Outpatient CHELSIE MACHADO APRN [id number] 09/14/2012 11:19:00 09/14/2012 23: 59:59 CLS Outpatient CHELSIE MACHADO APRN [id number] 09/08/2012 11:30:00 09/08/2012 23: 59:59 CLS Outpatient [id number] 08/01/2012 00:00:00 08/01/2012 23: 59:59 CLS Outpatient [id number] 07/25/2012 00:00:00 07/25/2012 23: 59:59 CLS Outpatient WILBER SALAMANCA DDS [id number] 05/03/2013 00:00:00 Document Registration [id number] 04/11/2013 09:49:00 Document Registration [id number] 02/07/2013 00:00:00 Document Registration [id number] 02/05/2013 14:59:00 Document Registration [id number] 01/07/2013 09:20:00 Document Registration [id number] 01/02/2013 00:00:00 Document Registration
--- OUTSIDE RECORDS SUMMARY | 2017-01-03 18:45 | XMS REPORT ---
Author CHELSIE Jacques Organization [employer] Address Unknown Phone Unavailable Care Team Providers Care Property Supervisor Name Role Phone CHELSIE MACHADO CP Unavailable [...] Active Problem Primary insomnia F51.01 Active Medications No Known Medications Results No Known Results Summary Purpose eClinicalWorks Submission
--- OUTSIDE RECORDS SUMMARY | 2017-01-03 18:45 | XMS REPORT ---
Author Author TABATHA CALDERA [facility] eClinicalWorks Address Unknown Phone Unavailable Care Team Providers Care Dredge Pump Operator Name Role Phone TABATHA CALDERA CP Unavailable Allergies, Adverse Reactions, Alerts Substance Reaction Event Type Zoloft "psychosis" Drug Allergy Ziprasidone HCl involuntary eye mvmt Drug Allergy Paxil drooling Drug Allergy Neosporin swelling Drug Allergy Naproxen rash Drug Allergy Doxepin HCl anger Drug Allergy Codeine Sulfate rash Drug Allergy gluten nausea and vomiting Non Drug Allergy corn/popcorn excessive sleepiness Non Drug Allergy Latex itching Non Drug Allergy Problems Problem Type Condition Code Onset Dates Condition Status Problem Right leg claudication I73.9 Active Problem Hypertension I10 Active Problem Left leg claudication I73.9 Active Assessment Feared complaint without diagnosis Z71.1 Active Assessment Other malaise R53.81 Active Problem Hypertension, benign I10 Active Problem Memory loss R41.3 Active Problem Diabetes type 2, controlled E11.9 Active Problem Bipolar disorder, unspecified F31.9 Active Problem Mild hyperlipidemia E78.5 Active Problem Primary insomnia F51.01 Active Problem Generalized anxiety disorder F41.1 Active Medications Medication Code System Code Instructions Start Date End Date Status Dosage Lancets [facility] 0 - December 03, 2014 1 time per day ONE TOUCH DELICA LANCETS Cymbalta [facility] [address]-50 30 MG Orally Twice a day April 23, 2015 1 capsule Cymbalta [facility] [address]-65 60 MG Orally Twice a day Jun 26, 2012 1 capsule HydrOXYzine HCl [facility] [address]-73 10 MG Orally every 8 hrs PRN March 24, 2015 1 tablet as needed Propranolol HCl [facility] [address]-78 20 MG TAKE ONE TABLET BY MOUTH TWICE DAILY Metformin HCl [facility] [address]-20 500 MG Twice a day 2 tablets Hydrochlorothiazide [facility] [address]-63 25 MG Once a day 1 capsule Alprazolam [facility] [address]-03 1 MG TAKE ONE TABLET BY MOUTH THREE TIMES DAILY Procedures Procedure Coding System Code Date Office Visit, Est Pt., Level 3 CPT-4 80809 Sep 11, 2015 GLUCOSE BLOOD TEST CPT-4 66068 Sep 11, 2015 Vital Signs Date/Time: Sep 11, 2015 Temperature 98.0 F Weight 281 lbs Height 73 in BMI 37.07 Index Blood Pressure Diastolic 82 mmHg Blood Pressure Systolic 132 mmHg Cardiac Monitoring Heart Rate 90 bpm Results Name Result Date Reference Range Unit Abnormality Flag GLUCOSE FINGERSTICK (IN HOUSE) ----GLU FINGERSTICK [id number] ----PC [id number] ----Lot # [id number] ----Exp date 07/28/201520150911 Summary Purpose eClinicalWorks Submission
--- OUTSIDE RECORDS SUMMARY | 2017-01-03 18:45 | XMS REPORT ---
Author Author NIXON BERGER [facility] eClinicalWorks Address Unknown Phone Unavailable Care Team Providers Care Pantograph Machine Operator Name Role Phone NIXON BERGER CP Unavailable Allergies, Adverse Reactions, Alerts Substance [...] Active Problem Left leg claudication I73.9 Active Problem Hypertension, benign I10 Active Problem Memory loss R41.3 Active Problem Diabetes type 2, controlled E11.9 Active Problem Bipolar disorder, unspecified F31.9 Active Problem Mild hyperlipidemia E78.5 Active Problem Primary insomnia F51.01 Active Problem Generalized anxiety disorder F41.1 Active Assessment Right leg claudication I73.9 Active Assessment Mild hyperlipidemia E78.5 Active Assessment Obesity (BMI 35.0-39.9 without comorbidity) E66.01 Active Assessment Left leg claudication I73.9 Active Assessment Diabetes type 2, controlled E11.9 Active Assessment Hypertension I10 Active Assessment Chest discomfort R07.89 Active Medications Medication Code System Code Instructions Start Date End Date Status Dosage Fioricet [facility] [address]-90 50-300-40 MG Orally every 4 hrs 1 capsule as needed Cymbalta [facility] [address]-17 60 MG Orally Twice a day Jun 26, 2012 1 capsule Propranolol HCl [facility] [address]-89 20 MG TAKE ONE TABLET BY MOUTH TWICE DAILY Metformin HCl [facility] [address]-09 500 MG Twice a day 2 tablets Lancets [facility] 0 - December 03, 2014 1 time per day ONE TOUCH DELICA LANCETS Cymbalta [facility] [address]-47 30 MG Orally Twice a day April 23, 2015 1 capsule Hydrochlorothiazide [facility] [address]-24 25 MG Once a day 1 capsule Alprazolam [facility] [address]-71 1 MG TAKE ONE TABLET BY MOUTH THREE TIMES DAILY HydrOXYzine HCl [facility] [address]-17 10 MG Orally every 8 hrs PRN March 24, 2015 1 tablet as needed Procedures Procedure Coding System Code Date Office Visit, New Pt., Level 4 CPT-4 69026 Sep 02, 2015 MEASURE BLOOD OXYGEN LEVEL CPT-4 70608 Sep 02, 2015 Vital Signs Date/Time: Sep 02, 2015 Cardiac Monitoring Heart Rate 80 bpm Weight 274 lbs Height 73 in BMI 36.15 Index Oximetry 99 % Blood Pressure Diastolic 78 mmHg Blood Pressure Systolic 102 mmHg Results No Known Results Summary Purpose eClinicalWorks Submission
--- OUTSIDE RECORDS SUMMARY | 2017-01-03 18:46 | XMS REPORT ---
Author Author JANEL PALACIOS [facility] eClinicalWorks Address Unknown Phone Unavailable Care Team Providers Care Paddock Judge Name Role Phone JANEL PALACIOS CP Unavailable Allergies, Adverse Reactions, Alerts Substance Reaction Event Type Zoloft "psychosis" Drug Allergy Ziprasidone HCl involuntary eye mvmt Drug Allergy Paxil drooling Drug Allergy Neosporin swelling Drug Allergy Naproxen rash Drug Allergy Doxepin HCl anger Drug Allergy Codeine Sulfate rash Drug Allergy corn/popcorn excessive sleepiness Non Drug Allergy gluten nausea and vomiting Non Drug Allergy Latex itching Non Drug Allergy Problems Problem Type Condition ICD-9 Code Onset Dates Condition Status Problem Loss of weight 783.21 Active Problem Unspecified visual loss 369.9 Active Problem Insomnia, unspecified 780.52 Active Problem Migraine, unspecified without mention of intractable migraine without mention of status migrainosus 346.90 Active Problem Essential hypertension, benign 401.1 Active Problem Diabetes 250.00 Active Problem Memory loss 780.93 Active Problem Major depressive disorder, recurrent episode, moderate 296.32 Active Problem 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 Problem Unspecified conjunctivitis 372.30 Active Assessment Bipolar 1 disorder, mixed 296.60 Active Problem Influenza with other respiratory manifestations 487.1 Active Assessment Generalized anxiety disorder 300.02 Active Problem Encounter for long-term (current) use of other medications V58.69 Active Assessment Insomnia, unspecified 780.52 Active Problem Diarrhea 787.91 Active Medications Medication Code System Code Instructions Start Date End Date Status Dosage Hydrochlorothiazide [facility] 52887271862 25 MG TAKE ONE TABLET BY MOUTH ONCE DAILY Propranolol HCl [facility] 67035605361 20 MG TAKE ONE TABLET BY MOUTH TWICE DAILY Xanax [facility] [address]-40 1 MG Orally Twice a day December 05, 2014 1 tablet Cymbalta [facility] [address]-52 30 MG Orally Twice a day April 23, 2015 1 capsule Lancets [facility] 0 - December 03, 2014 1 time per day ONE TOUCH DELICA LANCETS HydrOXYzine HCl [facility] [address]-97 10 MG Orally every 8 hrs PRN March 24, 2015 1 tablet as needed Cymbalta [facility] [address]-87 60 MG Orally Twice a day Jun 26, 2012 1 capsule Metformin HCl [facility] [address]-63 500 MG Orally Twice a day 2 tablet with meals Procedures Procedure Coding System Code Date Office Visit, Est Pt., Level 3 CPT-4 23073 May 21, 2015 Vital Signs Date/Time: May 21, 2015 Cardiac Monitoring Heart Rate 88 bpm Weight 246.8 lbs Height 73 in BMI 32.56 Index Blood Pressure Diastolic 64 mmHg Blood Pressure Systolic 98 mmHg Results No Known Results Summary Purpose eClinicalWorks Submission
--- OUTSIDE RECORDS SUMMARY | 2017-01-03 18:46 | XMS REPORT ---
Author Author JEFF GARCIA [facility] eClinicalWorks Address Unknown Phone Unavailable Care Team Providers Care Mucker Operator Name Role Phone JEFF GARCIA CP Unavailable Allergies No Known Allergies Problems Problem Type Condition Code Onset Dates Condition Status Assessment Generalized anxiety disorder F41.1 Active Problem Hypertension, benign I10 Active Problem Memory loss R41.3 Active Problem Diabetes type 2, controlled E11.9 Active Problem Bipolar disorder, unspecified F31.9 Active Assessment Bipolar disorder, unspecified F31.9 Active Problem Primary insomnia F51.01 Active Problem Generalized anxiety disorder F41.1 Active Medications No Known Medications Procedures Procedure Coding System Code Date Psychotherapy, patient &/family, 45 minutes, new patient CPT-4 08188 Aug Results No Known Results Summary Purpose eClinicalWorks Submission
--- OUTSIDE RECORDS SUMMARY | 2017-01-03 18:46 | XMS REPORT ---
Author CHELSIE Jacques [facility] eClinicalWorks Address Unknown Phone Unavailable Care Team Providers Care Jewel Bearing Turner Name Role Phone CHESLIE MACHADO CP Unavailable Allergies, Adverse Reactions, Alerts [...] rash and short of breath Drug Allergy gluten nausea and vomiting Non Drug Allergy corn/popcorn excessive sleepiness Non Drug Allergy Latex itching Non Drug Allergy Problems Problem Type Condition Code Onset Dates Condition Status Problem Primary insomnia F51.01 Active Problem Hypertension, benign I10 Active Problem Memory loss R41.3 Active Problem 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 Problem Type 2 diabetes mellitus with hyperglycemia E11.65 Active Problem Uncontrolled type 2 diabetes mellitus without complication, without long-term current use of insulin E11.65 Active Problem Diabetes type 2, uncontrolled E11.65 Active Problem Diabetes type 2, controlled E11.9 Active Problem Mood disorder F39 Active Problem Hypertension, essential I10 Active Assessment 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 62964239138 500 MG Twice a day [address] [facility] [address]-78 60 MG Orally Twice a day Jun 26, 2012 1 capsule [address]ets [facility] 0 - December 03, 2014 1 time per day ONE TOUCH DELICA LANCETS Propranolol HCl [facility] [address]-01 40 MG Orally Twice a day 1 tablet HydrOXYzine HCl [facility] [address]-22 25 MG Orally every 8 hrs PRN March 24, 2015 1 tablet as needed NovoLog Mix 70/[address] [facility] [address]-85 (70-30) 100 UNIT/ML Subcutaneous 2 times a day Aug 19, 2016 Inject 10 units Test strips [facility] 0 Test Strips Contour test strips 3 times weekly January 25, 2016 test 2 times per day Procedures Procedure Coding System Code Date Office Visit, Est Pt., Level 3 CPT-4 43738 Aug 19, 2016 Vital Signs Date/Time: Aug 19, 2016 Cardiac Monitoring Heart Rate 82 bpm Weight 269 lbs Height 73 in BMI 35.49 Index Blood Pressure Diastolic 80 mmHg Blood Pressure Systolic 130 mmHg Results No Known Results Summary Purpose eClinicalWorks Submission
--- OUTSIDE RECORDS SUMMARY | 2017-01-03 18:46 | XMS REPORT ---
Author CHELSIE Jacques [facility] eClinicalWorks Address Unknown Phone Unavailable Care Team Providers Care Chaplain Name Role Phone CHELSIE MACHADO CP Unavailable [...] E78.5 Active Problem Hypertension I10 Active Assessment Anxiety F41.9 Active Problem Right leg claudication I73.9 Active Problem Diabetes type 2, controlled E11.9 Active Problem Hypertension, benign I10 Active Problem Diabetes type 2, uncontrolled E11.65 Active Problem Generalized anxiety disorder F41.1 Active Problem Bipolar disorder, unspecified F31.9 Active Problem Memory loss R41.3 Active Problem Primary insomnia F51.01 Active Medications Medication Code System Code Instructions Start Date End Date Status Dosage Fioricet [facility] [address]-83 50-300-40 MG Orally every 4 hrs 1 capsule as needed HydrOXYzine HCl [facility] [address]-44 25 MG Orally every 8 hrs PRN March 24, 2015 1 tablet as needed Cymbalta [facility] [address]-96 30 MG Orally Twice a day April 23, 2015 1 capsule Propranolol HCl [facility] [address]-70 20 mg Orally Twice a day 1 tablet Metformin HCl [facility] [address]-64 500 MG Twice a day 2 tablets Lancets [facility] 0 - December 03, 2014 1 time per day ONE TOUCH DELICA LANCETS Cymbalta [facility] [address]-17 60 MG Orally Twice a day Jun 26, 2012 1 capsule Procedures Procedure Coding System Code Date Office Visit, Est Pt., Level 3 CPT-4 41305 January 22, 2016 Vital Signs Date/Time: January 22, 2016 Temperature 98.6 F Weight 265.0 lbs Height 73 in BMI 34.96 Index Blood Pressure Diastolic 89 mmHg Blood Pressure Systolic 122 mmHg Cardiac Monitoring Heart Rate 80 bpm Results No Known Results Summary Purpose eClinicalWorks Submission
--- OUTSIDE RECORDS SUMMARY | 2017-01-03 18:46 | XMS REPORT ---
Author Author JEWEL SIMONS [facility] eClinicalWorks Address Unknown Phone Unavailable Care Team Providers Care Cool Roofing Installer Name Role Phone JEWEL SIMONS Unavailable Allergies No Known Allergies Problems Problem Type Condition ICD-9 Code Onset Dates Condition Status Problem Insomnia, unspecified 780.52 Active Problem Major depressive disorder, recurrent episode, moderate 296.32 Active Problem Unspecified visual loss 369.9 Active Problem Diabetes 250.00 Active Problem Migraine, unspecified without mention of intractable migraine without mention of status migrainosus 346.90 Active Problem Type II diabetes mellitus 250.00 Active Problem Unspecified conjunctivitis 372.30 Active Problem Memory loss 780.93 Active Problem Essential hypertension, benign 401.1 Active Problem 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 Assessment Type II diabetes mellitus 250.00 Active Assessment No condition on Brooks II V71.09 Active Assessment Arthritis 716.90 Active Problem Influenza with other respiratory manifestations 487.1 Active Problem Encounter for long-term (current) use of other medications V58.69 Active Assessment Bipolar disorder, unspecified 296.80 Active Problem Diarrhea 787.91 Active Assessment Generalized anxiety disorder 300.02 Active Problem Loss of weight 783.21 Active Medications Medication Code System Code Instructions Start Date End Date Status Dosage Xanax [facility] [address]-56 1 MG Orally Twice a day December 05, 2014 1 tablet Propranolol HCl [facility] 94597237213 20 MG TAKE ONE TABLET BY MOUTH TWICE DAILY Hydrochlorothiazide [facility] 92698889766 25 MG TAKE ONE TABLET BY MOUTH ONCE DAILY Lancets [facility] 0 - December 03, 2014 1 time per day ONE TOUCH DELICA LANCETS Cymbalta [facility] [address]-42 30 MG Orally Twice a day April 23, 2015 1 capsule Cymbalta [facility] [address]-39 60 MG Orally Twice a day Jun 26, 2012 1 capsule Metformin HCl [facility] [address]-91 500 MG Orally Twice a day 2 tablet with meals Alprazolam [facility] 54563332646 1 MG TAKE ONE TABLET BY MOUTH THREE TIMES DAILY HydrOXYzine HCl [facility] [address]-44 10 MG Orally every 8 hrs PRN March 24, 2015 1 tablet as needed Procedures Procedure Coding System Code Date Psych diagnostic evaluation, established patient CPT-4 69168 May 29, 2015 Results No Known Results Summary Purpose eClinicalWorks Submission
--- OUTSIDE RECORDS SUMMARY | 2017-01-03 18:46 | XMS REPORT ---
Author Author CHELSIE MACHADO Organization eClinicalWorks Address Unknown Phone Unavailable Care Team Providers Care Sales Recruiter Name Role Phone CHELSIE MACHADO CP Unavailable [...]
--- OUTSIDE RECORDS SUMMARY | 2017-01-03 18:46 | XMS REPORT ---
Author Author GABY CHILD Organization [employer]Works Address Unknown Phone Unavailable Care Team Providers Care Final Inspector And Tester Name Role Phone GABY CHILD CP Unavailable Allergies, Adverse Reactions, Alerts Substance [...] E78.5 Active Problem Hypertension I10 Active Problem Diabetes type 2, controlled E11.9 Active Problem Hypertension, benign I10 Active Problem Diabetes type 2, uncontrolled E11.65 Active Problem Generalized anxiety disorder F41.1 Active Problem Bipolar disorder, unspecified F31.9 Active Problem Memory loss R41.3 Active Problem Primary insomnia F51.01 Active Assessment Generalized anxiety disorder F41.1 Active Assessment Moderate episode of recurrent major depressive disorder F33.1 Active Problem Right leg claudication I73.9 Active Medications Medication Code System Code Instructions Start Date End Date Status Dosage Cymbalta [facility] [address]-06 30 MG Orally Twice a day April 23, 2015 1 capsule HydrOXYzine HCl [facility] [address]-06 10 MG Orally every 8 hrs PRN March 24, 2015 1 tablet as needed Cymbalta [facility] [address]-43 60 MG Orally Twice a day Jun 26, 2012 1 capsule Metformin HCl [facility] [address]-09 500 MG Twice a day 2 tablets Propranolol HCl [facility] [address]-14 20 mg Orally Twice a day [address] [facility] [address]-19 50-300-40 MG Orally every 4 hrs 1 capsule as needed Lancets [facility] 0 - December 03, 2014 1 time per day ONE TOUCH DELICA LANCETS Procedures Procedure Coding System Code Date Office Visit, Est Pt., Level 3 CPT-4 52309 January 19, 2016 Vital Signs Date/Time: January 19, 2016 Cardiac Monitoring Heart Rate 104 bpm Weight 265.0 lbs Height 73 in BMI 34.96 Index Blood Pressure Diastolic 86 mmHg Blood Pressure Systolic 128 mmHg Results No Known Results Summary Purpose eClinicalWorks Submission
--- OUTSIDE RECORDS SUMMARY | 2017-01-03 18:47 | XMS REPORT ---
Author Author JEFF GARCIA [facility] eClinicalWorks Address Unknown Phone Unavailable Care Team Providers Care Monologist Name Role Phone JEFF GARCIA CP Unavailable Allergies, Adverse Reactions, Alerts Substance Reaction Event Type Zoloft "psychosis" Drug Allergy Ziprasidone HCl involuntary eye mvmt Drug Allergy Paxil drooling Drug Allergy Neosporin swelling Drug Allergy Naproxen rash Drug Allergy Doxepin HCl anger Drug Allergy Codeine Sulfate rash Drug Allergy Latex itching Non Drug Allergy corn/popcorn excessive sleepiness Non Drug Allergy gluten nausea and vomiting Non Drug Allergy Problems Problem Type Condition [...] without mention of status migrainosus 346.90 Active Assessment Major psychotic depression, recurrent F33.3 Active Problem Encounter for long-term (current) use of other medications V58.69 Active Problem Diarrhea 787.91 Active Assessment Generalized anxiety disorder F41.1 Active Problem Loss of weight 783.21 Active Problem Influenza with other respiratory manifestations 487.1 Active Problem Insomnia, unspecified 780.52 Active Medications No Known Medications Procedures Procedure Coding System Code Date Psych diagnostic evaluation, new patient CPT-4 17014 Jul 27, 2015 Results No Known Results Summary Purpose [employer] Submission
--- OUTSIDE RECORDS SUMMARY | 2017-01-03 18:47 | XMS REPORT ---
Author Author CHELSIE MACHADO Organization eClinicalWorks Address Unknown Phone Unavailable Care Team Providers Care Field Service Tech Name Role Phone CHELSIE MACHADO CP Unavailable [...] disorder F41.1 Active Medications No Known Medications Results No Known Results Summary Purpose eClinicalWorks Submission
--- OUTSIDE RECORDS SUMMARY | 2017-01-03 18:47 | XMS REPORT ---
Author Author GABY CHILD Organization [facility] Address [address] 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1 Active 76016284 Problem Hypertension I10 Active 65219478 Problem Primary insomnia F51.01 Active 735361921 ALLERGIES Substance Reaction Event Type Date Status Wellbutrin Unknown Drug Allergy Jul, Active Paxil drooling Drug Allergy Jul, Active Neosporin swelling Drug Allergy Jul, Active Naproxen rash Drug Allergy Jul, Active Doxepin HCl anger Drug Allergy Jul, Active Codeine Sulfate rash Drug Allergy Jul, Active Cephalexin rash and short of breath Drug Allergy Jul, Active Zoloft "psychosis" Drug Allergy Jul, Active gluten nausea and vomiting Non Drug Allergy Jul, Active Ziprasidone HCl involuntary eye mvmt Drug Allergy Jul, Active corn/popcorn excessive sleepiness Non Drug Allergy Jul, Active Latex itching Non Drug Allergy Jul, Active Latuda caused blood sugar to spike Drug Allergy Jul, Active SOCIAL HISTORY No smoking Hx information available PLAN OF CARE VITAL SIGNS Height 73 in 2016-08-23 Weight 276.8 lbs 2016-08-23 Heart Rate 80 bpm 2016-08-23 Respiratory Rate 20 2016-08-23 BMI 36.52 kg/m2 2016-08-23 Blood pressure systolic 121 mmHg 2016-08-23 Blood pressure diastolic 77 mmHg 2016-08-23 MEDICATIONS Medication Instructions Dosage Frequency Start Date End Date Duration Status Test strips Test Strips Contour test strips 3 times weekly test 2 times per day January, Active Lancets - 1 time per day ONE TOUCH DELICA LANCETS Nov, Active NovoLog Mix 70/30 Flexpen (70-30) 100 UNIT/ML Subcutaneous 2 times a day Inject 10 units 12h Jul, Active Propranolol HCl 40 MG Orally Twice a day 1 tablet 12h 30 Active Metformin HCl 500 MG 2 tablets 12h Active HydrOXYzine HCl 50 MG Orally BID 1 tablet as needed 12h Feb, 30 days Active Cymbalta 60 MG Orally Twice a day 1 capsule 12h Jun, Active RESULTS No Results PROCEDURES Procedure Date Ordered Related Diagnosis Body Site MH Office Visit, Est Pt., Level 3 Aug 23, 2016 IMMUNIZATIONS No Known Immunizations
--- OUTSIDE RECORDS SUMMARY | 2017-01-03 18:47 | XMS REPORT ---
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 Problem Influenza with other respiratory manifestations 487.1 Active Problem Encounter for long-term (current) use of other medications V58.69 Active Problem Diarrhea 787.91 Active Assessment Type II diabetes mellitus 250.00 Active Problem Loss of weight 783.21 Active Medications Medication Code System Code Instructions Start Date End Date Status Dosage Cymbalta [facility] [address]-20 60 MG Orally Twice a day Jun 26, 2012 1 capsule Alprazolam [facility] 30677485645 1 MG TAKE ONE TABLET BY MOUTH THREE TIMES DAILY HydrOXYzine HCl [facility] [address]-82 10 MG Orally every 8 hrs PRN March 24, 2015 1 tablet as needed Cymbalta [facility] [address]-25 30 MG Orally Twice a day April 23, 2015 1 capsule Metformin HCl [facility] [address]-76 500 MG Orally Twice a day 2 tablet with meals Propranolol HCl [facility] 02203575166 20 MG TAKE ONE TABLET BY MOUTH TWICE DAILY Lancets [facility] 0 - December 03, 2014 1 time per day ONE TOUCH DELICA LANCETS Hydrochlorothiazide [facility] 10412543950 25 MG TAKE ONE TABLET BY MOUTH ONCE DAILY Procedures Procedure Coding System Code Date MICROALBUMIN, SEMIQUANT CPT-4 53880 Jun 24, 2015 Office Visit, Est Pt., Level 3 CPT-4 24749 Jun 24, 2015 GLYCATED HEMOGLOBIN TEST CPT-4 41955 Jun 24, 2015 Vital Signs Date/Time: Jun 24, 2015 Temperature 96.8 F Weight 254.1 lbs Height 73 in BMI 33.52 Index Blood Pressure Diastolic 76 mmHg Blood Pressure Systolic 108 mmHg Cardiac Monitoring Heart Rate 80 bpm Results Name Result Date Reference Range Unit Abnormality Flag A1C (IN HOUSE) Summary Purpose eClinicalWorks Submission
--- OUTSIDE RECORDS SUMMARY | 2017-01-03 18:47 | XMS REPORT ---
Author Author GABY CHILD Organization eClinicalWorks Address Unknown Phone Unavailable Care Team Providers Care Game Protector Name Role Phone GABY CHILD CP Unavailable Allergies No Known Allergies Problems [...] Cymbalta [facility] [address]-49 30 MG Orally TAKE ONE CAPSULE BY MOUTH TWICE DAILY Propranolol HCl [facility] [address]-59 20 mg Orally Twice a day 1 tablet Metformin HCl [facility] [address]-64 500 MG Twice a day [address] [facility] [address]-19 60 MG Orally Twice a day Jun 26, [address] [facility] 0 - December 03, 2014 1 time per day ONE TOUCH DELICA LANCETS Test strips [place] 0 Test Strips Contour test strips 3 times weekly January 25, 2016 test 2 times per day HydrOXYzine HCl [facility] [address]-88 25 MG Orally every 8 hrs PRN March 24, 2015 1 tablet as needed Procedures Procedure Coding System Code Date Office Visit, Est Pt., Level 3 CPT-4 83079 April 14, 2016 Vital Signs Date/Time: April 14, 2016 Cardiac Monitoring Heart Rate 92 bpm Weight 275.5 lbs Height 73 in Blood Pressure Diastolic 86 mmHg Blood Pressure Systolic 142 mmHg Results No Known Results Summary Purpose eClinicalWorks Submission
--- OUTSIDE RECORDS SUMMARY | 2017-01-03 18:47 | XMS REPORT ---
Author Author JANEL PALACIOS [facility] eClinicalWorks Address Unknown Phone Unavailable Care Team Providers Care State Inspector Name Role Phone JANEL PALACIOS CP Unavailable [...] mention of status migrainosus 346.90 Active Assessment Insomnia G47.00 Active Assessment Generalized anxiety disorder F41.1 Active Problem Encounter for long-term (current) use of other medications V58.69 Active Problem Diarrhea 787.91 Active Assessment Bipolar disorder, unspecified F31.9 Active Problem Loss of weight 783.21 Active Problem Influenza with other respiratory manifestations 487.1 Active Problem Insomnia, unspecified 780.52 Active Medications Medication Code System Code Instructions Start Date End Date Status Dosage Cymbalta [facility] [address]-02 30 MG Orally Twice a day April 23, 2015 1 capsule Cymbalta [facility] [address]-03 60 MG Orally Twice a day Jun 26, 2012 1 capsule HydrOXYzine HCl [facility] [address]-67 10 MG Orally every 8 hrs PRN March 24, 2015 1 tablet as needed Propranolol HCl [facility] [address]-77 20 MG TAKE ONE TABLET BY MOUTH TWICE DAILY Fioricet [facility] [address]-47 50-325-40 mg December 20, 2013 1-2 tablet by Oral route every 6 hoursPRNnot to exceed 6 tablets/day, 10/week Metformin HCl [facility] 61359783157 500 MG TAKE TWO TABLETS BY MOUTH TWICE DAILY WITH MORNING AND EVENING MEALS Hydrochlorothiazide [facility] 88277768446 25 MG TAKE ONE TABLET BY MOUTH ONCE DAILY Alprazolam [facility] [address]-46 1 MG TAKE ONE TABLET BY MOUTH THREE TIMES DAILY Lancets [facility] 0 - December 03, 2014 1 time per day ONE TOUCH DELICA LANCETS Procedures Procedure Coding System Code Date Office Visit, Est Pt., Level 3 CPT-4 79524 Aug 11, 2015 Vital Signs Date/Time: Aug 11, 2015 Cardiac Monitoring Heart Rate 96 bpm Weight 272.0 lbs Height 73 in BMI 35.88 Index Blood Pressure Diastolic 75 mmHg Blood Pressure Systolic 140 mmHg Results No Known Results Summary Purpose eClinicalWorks Submission
--- OUTSIDE RECORDS SUMMARY | 2017-01-03 18:48 | XMS REPORT ---
Author CHELSIE Jacques [facility] eClinicalWorks Address Unknown Phone Unavailable Care Team Providers Care Dynamics Ax Consultant Name Role Phone CHELSIE MACHADO CP [...] Condition Code Onset Dates Condition Status Problem Generalized anxiety disorder F41.1 Active Problem Memory loss R41.3 Active Problem Primary insomnia F51.01 Active Problem Type 2 diabetes mellitus with hyperglycemia E11.65 Active Problem Mood disorder F39 Active Problem 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 Problem Diabetes type 2, controlled E11.9 Active Problem Hypertension, benign I10 Active Problem Hypertension, essential I10 Active Problem Diabetes type 2, uncontrolled E11.65 Active Assessment Mood disorder F39 Active Assessment Type 2 diabetes mellitus with hyperglycemia E11.65 Active Assessment Hypertension, essential I10 Active Problem Left leg claudication I73.9 Active Problem Hypertension I10 Active Assessment 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 Problem Mild hyperlipidemia E78.5 Active Problem Right leg claudication I73.9 Active Problem Bipolar disorder, unspecified F31.9 Active Medications Medication Code System Code Instructions Start Date End Date Status Dosage Propranolol HCl [facility] [address]-95 40 MG Orally Twice a day 1 tablet Actos [facility] [address]-74 45 MG Orally Once a day Jun 24, 2016 1 tablet Cymbalta [facility] [address]-90 60 MG Orally Twice a day Jun 26, 2012 1 capsule Lancets [facility] 0 - December 03, 2014 1 time per day ONE TOUCH DELICA LANCETS Test strips [place] 0 Test Strips Contour test strips 3 times weekly January 25, 2016 test 2 times per day HydrOXYzine HCl [facility] [address]-80 25 MG Orally every 8 hrs PRN March 24, 2015 1 tablet as needed Metformin HCl [facility] 18217974424 500 MG Twice a day 2 tablets Procedures Procedure Coding System Code Date Office Visit, Est Pt., Level 3 CPT-4 78174 Jul 22, 2016 Vital Signs Date/Time: Jul 22, 2016 Cardiac Monitoring Heart Rate 82 bpm Weight 276.8 lbs Height 73 in BMI 36.52 Index Blood Pressure Diastolic 82 mmHg Blood Pressure Systolic 144 mmHg Results No Known Results Summary Purpose eClinicalWorks Submission
--- OUTSIDE RECORDS SUMMARY | 2017-01-03 18:48 | XMS REPORT ---
Author CHELSIE Jacques [facility] eClinicalWorks Address Unknown Phone Unavailable Care Team Providers Care Direct Support Professional Caregiver Name Role Phone CHELSIE MACHADO CP Unavailable [...] Active Problem Primary insomnia F51.01 Active Assessment Mood disorder F39 Active Assessment Diabetes type 2, controlled E11.9 Active Problem Right leg claudication I73.9 Active Medications Medication Code System Code Instructions Start Date End Date Status Dosage Bactroban Nasal [facility] [address]-38 2 % Nasally 2 times a day May 16, 2016 apply thin layer to inside of nares Test strips [place] 0 Test Strips Contour test strips 3 times weekly January 25, 2016 test 2 times per day Lancets [facility] 0 - December 03, 2014 1 time per day ONE TOUCH DELICA LANCETS Metformin HCl [facility] 26252513675 500 MG Twice a day 2 tablets HydrOXYzine HCl [facility] [address]-80 25 MG Orally every 8 hrs PRN March 24, 2015 1 tablet as needed Cymbalta [facility] [address]-95 60 MG Orally Twice a day Jun 26, 2012 1 capsule Propranolol HCl [facility] 57715626498 20 mg Orally Twice a day 1 tablet Actos [facility] [address]-50 15 MG Orally Once a day Jun 24, 2016 1 tablet Cymbalta [facility] [address]-78 30 MG Orally TAKE ONE CAPSULE BY MOUTH TWICE DAILY Procedures Procedure Coding System Code Date Office Visit, Est Pt., Level 3 CPT-4 32755 Jun 24, 2016 GLYCATED HEMOGLOBIN TEST CPT-4 08638 Jun 24, 2016 Vital Signs Date/Time: Jun 24, 2016 Cardiac Monitoring Heart Rate 80 bpm Weight 278.3 lbs Height 73 in BMI 36.71 Index Blood Pressure Diastolic 104 mmHg Blood Pressure Systolic 152 mmHg Results Name Result Date Reference Range Unit Abnormality Flag A1C (IN HOUSE) ----A1C IN HOUSE 10.0 [id number] 4.3 - 5.6 % ----Previous A1c 6.7 [id number] ----Lot [id number] ----Exp date [id number] Summary Purpose eClinicalWorks Submission
--- OUTSIDE RECORDS SUMMARY | 2017-01-03 18:48 | XMS REPORT ---
Author Author CHELSIE MACHADO Organization eClinicalWorks Address Unknown Phone Unavailable Care Team Providers Care Machinist Set Up Name Role Phone CHELSIE MACHADO CP Unavailable [...] Diabetes type 2, uncontrolled E11.65 Active Problem Left leg claudication I73.9 Active Problem Hypertension I10 Active Problem Mild hyperlipidemia E78.5 Active Problem Right leg claudication I73.9 Active Problem Bipolar disorder, unspecified F31.9 Active Medications No Known Medications Results No Known Results Summary Purpose eClinicalWorks Submission
--- OUTSIDE RECORDS SUMMARY | 2017-01-03 18:48 | XMS REPORT ---
Author Author CHELSIE MACHADO Organization eClinicalWorks Address Unknown Phone Unavailable Care Team Providers Care Bomb Loader Name Role Phone CHELSIE MACHADO CP Unavailable [...]
--- OUTSIDE RECORDS SUMMARY | 2017-01-03 18:48 | XMS REPORT ---
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 94337798 Problem Hypertension, essential I10 Active 09404273 Problem Diabetes type 2, uncontrolled E11.65 Active 383418232 Problem Type 2 diabetes mellitus with hyperglycemia E11.65 Active 461209279308859 Problem Mood disorder F39 Active 09268150 Assessment Diabetes type 2, controlled E11.9 Aug, Active 287359484 Problem Right leg claudication I73.9 Active 914366866 Problem Mild hyperlipidemia E78.5 Active 36619330 Problem Bipolar disorder, unspecified F31.9 Active 57688797 Problem Left leg claudication I73.9 Active 382951661 Problem Generalized anxiety disorder F41.1 Active 62566654 Problem Hypertension I10 Active 20296716 Problem Primary insomnia F51.01 Active 062667094 ALLERGIES Substance Reaction Event Type Date Status Wellbutrin Unknown Drug Allergy Aug, Active Paxil drooling Drug Allergy Aug, Active Neosporin swelling Drug Allergy Aug, Active Naproxen rash Drug Allergy Aug, Active Doxepin HCl anger Drug Allergy Aug, Active Codeine Sulfate rash Drug Allergy Aug, Active Cephalexin rash and short of breath Drug Allergy Aug, Active Zoloft "psychosis" Drug Allergy Aug, Active Latex itching Non Drug Allergy Aug, Active Ziprasidone HCl involuntary eye mvmt Drug Allergy Aug, Active gluten nausea and vomiting Non Drug Allergy Aug, Active corn/popcorn excessive sleepiness Non Drug Allergy Aug, Active Latuda caused blood sugar to spike Drug Allergy Aug, Active SOCIAL HISTORY No smoking Hx information available PLAN OF CARE VITAL SIGNS Height 73 in 2016-09-02 Weight 278.7 lbs 2016-09-02 Heart Rate 80 bpm 2016-09-02 Respiratory Rate 20 2016-09-02 BMI 36.77 kg/m2 2016-09-02 Blood pressure systolic 124 mmHg 2016-09-02 Blood pressure diastolic 86 mmHg 2016-09-02 MEDICATIONS Medication Instructions Dosage Frequency Start Date End Date Duration Status Lancets - 1 time per day ONE TOUCH DELICA LANCETS Nov, Active Test strips Test Strips Contour test strips 3 times weekly test 2 times per day January, Active Cymbalta 60 MG Orally Twice a day 1 capsule 12h Jun, Active Propranolol HCl 40 MG Orally Twice a day 1 tablet 12h 30 Active NovoLog Mix 70/30 Flexpen (70-30) 100 UNIT/ML Subcutaneous 2 times a day Inject 10 units 12h 25 Jul, 2016 Active Metformin HCl 500 MG 2 tablets 12h Active HydrOXYzine HCl 50 MG Orally BID 1 tablet as needed 12h 30 Feb, 2015 30 days Active RESULTS Name Result Date Reference Range MICROALBUMIN/CREATININE RATIO, URINE 2016-09-02 Creatinine, Urine 280.6 Not Estab. Microalbumin, Urine 83.0 Not Estab. Microalb/Creat Ratio 29.6 0.0-30.0 A1C (IN HOUSE) 2016-09-02 A1C IN HOUSE 13.8 4.3 - 5.6 % Previous A1c 10.0 Lot [id number] Exp date MICROALBUMIN, URINE (IN HOUSE) 2016-09-02 MICROALBUMIN Abnormal Lot # [id number] Exp date Clarity Clear Color Yellow ALB 150 CRE 300 A:C (IN HOUSE) 30-300 Control + Control - Lot # [id number] Exp date UA LONG DIP (IN HOUSE) 2016-09-02 Lot # [id number] Exp date Clarity Clear Color Yellow Odor Strong GLU 2+ BELL Negative KET Negative SG >=1.030 BLO Negative pH 5.0 Protein 1+ URO 0.2 NIT Negative SHARON Negative Lot # [id number] Exp date PROCEDURES Procedure Date Ordered Related Diagnosis Body Site MICROALBUMIN, SEMIQUANT Sep 02, 2016 ASSAY OF URINE CREATININE Sep 02, 2016 URINALYSIS, AUTO, W/O SCOPE Sep 02, 2016 MICROALBUMIN, QUANTITATIVE Sep 02, 2016 Office Visit, Est Pt., Level 3 Sep 02, 2016 GLYCATED HEMOGLOBIN TEST Sep 02, 2016 IMMUNIZATIONS No Known Immunizations
--- OUTSIDE RECORDS SUMMARY | 2017-01-03 18:48 | XMS REPORT ---
Author Author CHELSIE MACHADO [facility] eClinical[employer] Address Unknown Phone Unavailable Care Team Providers Care Engineering Group Leader Name Role Phone CHELSIE MACHADO CP Unavailable [...] Problem Left leg claudication I73.9 Active Assessment Diabetes [...] Start Date End Date Status Dosage Cymbalta [facility] [address]-38 30 MG Orally Twice a day April 23, 2015 1 capsule Fioricet [facility] [address]-96 50-300-40 MG Orally every 4 hrs 1 capsule as needed Lancets [facility] 0 - December 03, 2014 1 time per day ONE TOUCH DELICA LANCETS Cymbalta [facility] [address]-29 60 MG Orally Twice a day Jun 26, 2012 1 capsule Metformin HCl [facility] [address]-13 500 MG Twice a day 2 tablets Alprazolam [facility] [address]-77 1 MG TAKE ONE TABLET BY MOUTH THREE TIMES DAILY Propranolol HCl [facility] [address]-70 20 MG TAKE ONE TABLET BY MOUTH TWICE DAILY HydrOXYzine HCl [facility] [address]-05 10 MG Orally every 8 hrs PRN March 24, 2015 1 tablet as needed Hydrochlorothiazide [facility] [address]-49 25 MG Once a day 1 capsule Procedures Procedure Coding System Code Date Office Visit, Est Pt., Level 3 CPT-4 93961 Sep 30, 2015 Vital Signs Date/Time: Sep 30, 2015 Temperature 98.5 F Weight 275.0 lbs Height 73 in BMI 36.28 Index Blood Pressure Diastolic 83 mmHg Blood Pressure Systolic 121 mmHg Cardiac Monitoring Heart Rate 84 bpm Results Name Result Date Reference Range Unit Abnormality Flag A1C (IN HOUSE) ----A1C IN HOUSE 6.6 20150930 4.30 - 5.6 % ----Previous A1c 5.9 20150930 ----Lot # [id number] ----Exp date 20150930 Summary Purpose eClinicalWorks Submission
--- OUTSIDE RECORDS SUMMARY | 2017-01-03 18:48 | XMS REPORT ---
Author Author CHELSIE MACHADO Organization [employer] Address Unknown Phone Unavailable Care Team Providers Care Product Support Engineer Name Role Phone CHELSIE MACHADO CP [...]
--- OUTSIDE RECORDS SUMMARY | 2017-01-03 18:49 | XMS REPORT ---
Author CHELSIE Jacques Organization [employer] Address Unknown Phone Unavailable Care Team Providers Care Test Engine Evaluator Name Role Phone CHELSIE MACHADO CP Unavailable [...] Instructions Start Date End Date Status Dosage Bactrim DS [facility] [address]-48 800-160 MG Orally Twice a day March 17, 2016 March 27, 2016 1 tablet Results No Known Results Summary Purpose eClinicalWorks Submission
--- OUTSIDE RECORDS SUMMARY | 2017-01-03 18:49 | XMS REPORT ---
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 Name Role Phone CHELSIE MACHADO CP Unavailable [...] Active Problem Unspecified conjunctivitis 372.30 Active Assessment Chest pain 786.50 Active Problem Influenza with other respiratory manifestations 487.1 Active Problem Encounter for long-term (current) use of other medications V58.69 Active Problem Diarrhea 787.91 Active Medications Medication Code System Code Instructions Start Date End Date Status Dosage Fioricet [facility] [address]-38 50-325-40 mg December 20, 2013 1-2 tablet by Oral route every 6 hoursPRNnot to exceed 6 tablets/day, 10/week HydrOXYzine HCl [facility] [address]-30 10 MG Orally every 8 hrs PRN March 24, 2015 1 tablet as needed Xanax [facility] [address]-01 1 MG Orally Three times a day December 05, 2014 1 tablet Metformin HCl [facility] [address]-03 500 MG Orally Twice a day 2 tablet with meals Lancets [facility] 0 - December 03, 2014 1 time per day ONE TOUCH DELICA LANCETS Cymbalta [facility] [address]-61 30 MG Orally Twice a day April 23, 2015 1 capsule Propranolol HCl [facility] 94535954451 20 MG TAKE ONE TABLET BY MOUTH TWICE DAILY Cymbalta [facility] [address]-60 60 MG Orally Twice a day Jun 26, 2012 1 capsule Hydrochlorothiazide [facility] 42089821602 25 MG TAKE ONE TABLET BY MOUTH ONCE DAILY Procedures Procedure Coding System Code Date Office Visit, Est Pt., Level 3 CPT-4 87882 May 20, 2015 Vital Signs Date/Time: May 20, 2015 Temperature 97.8 F Weight 248.5 lbs Height 73 in BMI 32.78 Index Blood Pressure Diastolic 70 mmHg Blood Pressure Systolic 122 mmHg Cardiac Monitoring Heart Rate 82 bpm Results No Known Results Summary Purpose eClinicalWorks Submission
== END 2016-12-19 18:24 | disposition home or self-care (01) ==
LOC: EDUNIT# 15:41 → ER 15:43
DX: R10.31 Right lower quadrant pain (principal); K76.0 Fatty (change of) liver, not elsewhere classified; E27.9 Disorder of adrenal gland, unspecified; E11.9 Type 2 diabetes mellitus without complications; I10 Essential (primary) hypertension; Z79.84 Long term (current) use of oral hypoglycemic drugs; Z90.49 Acquired absence of other specified parts of digestive tract
CPT/HCPCS: 36415; 74178; 80053; 81000; 83690; 85025

== ENCOUNTER 2017-01-10 10:46 | Emergency (ER) | payer OTHER ==
[~2017-01-10] VITALS: Ht 172.7 cm; Wt 90.7 kg
--- NOTE | 2017-01-10 11:33 | ED Cough/URI ---
General Chief Complaint: Cough/Cold/Flu Symptoms Stated Complaint: FLU SYMPTOMS Nursing Triage Note: to ER with complaints of cough and related LUQ pain due to excessive coughing. Source: patient, family (sister) Exam Limitations: no limitations History of Present Illness Time seen by provider: 11:33 Initial Comments 46 yo male patient presents to the ED with c /o cough, congestion, sore throat beginning Monday. Reports left upper quadrant pain beginning this a.m. Worse with coughing, palpation, and movement. Denies fevers, nausea, vomiting, diarrhea. Timing/Duration: getting worse, other (Monday onset.) Severity/Quality: dry cough Prior Episodes/Possible Cause: no prior episodes Modifying Factors: Worse With Coughing, Worse With Other (movement and palpation.) Allergies and Home Medications Allergies Coded Allergies: codeine (Unverified Allergy, Mild, 10/22/09) naproxen (Unverified Allergy, Mild, 10/22/09) bacitracin (Verified Allergy, Unknown, 12/01/15) bupropion (Verified Allergy, Unknown, 12/01/15) cephalexin (Verified Allergy, Unknown, 12/01/15) corn (Verified Allergy, Unknown, 12/01/15) doxepin (Verified Allergy, Unknown, 12/01/15) gluten (Verified Allergy, Unknown, 12/01/15) lurasidone (Verified Allergy, Unknown, 12/01/15) neomycin (Verified Allergy, Unknown, 12/01/15) paroxetine (Verified Allergy, Unknown, 12/01/15) polymyxin B (Verified Allergy, Unknown, 12/01/15) sertraline (Verified Allergy, Unknown, 12/01/15) ziprasidone (Verified Allergy, Unknown, 12/01/15) latex (Unverified Adverse Reaction, Mild, RASH, 01/19/11) Home Medications Amoxicillin 500 Mg Capsule, 500 MG PO QID, #28 Ref 0 Prescribed by: LUISITO WAGONER on 01/10/17 1156 Benzonatate 200 Mg Capsule, 200 MG PO Q8H PRN for COUGH, #30 Ref 0 Prescribed by: LUISITO WAGONER on 01/10/17 1156 Butalb/Acetaminophen/Caffeine 1 Each Capsule, 1 EACH PO UD PRN for MIGRAINE, ( Reported) TAKE 1 AT ONSET OF MIGRAINES, MAY TAKE UP TO 6 IN 24 HOURS Duloxetine HCl 30 Mg Capsule.dr, 90 MG PO BID, (Reported) take wtih 60mg tab Duloxetine Hcl 60 Mg Capsule.dr, 90 MG PO BID, Ref 0 (Reported) take with 30mg tab Hydroxyzine Pamoate 25 Mg Capsule, 25 MG PO TID, (Reported) Metformin HCl 500 Mg Tablet, 1,000 MG PO BID, (Reported) take 2 (500MG) TAB Propranolol HCl 20 Mg Tablet, 20 MG PO BID, (Reported) Tramadol HCl 50 Mg Tablet, 50 MG PO Q4H PRN for PAIN-MILD TO MODERATE, #14 Ref 0 Prescribed by: LUISITO WAGONER on 01/10/17 1156 Constitutional: No chills, No dizziness, No fever, malaise EENTM: throat pain, No ear pain, No mouth pain, No nose congestion Respiratory: see HPI, cough, No dyspnea on exertion, No phlegm, No short of breath, No wheezing Cardiovascular: no symptoms reported Gastrointestinal: see HPI, abdominal pain (LUQ), No constipation, No diarrhea, No heartburn, No loss of appetite, No nausea, No vomiting Genitourinary: no symptoms reported Musculoskeletal: No back pain Skin: no symptoms reported Psychiatric/Neurological: No Symptoms Reported All Other Systems Reviewed Negative Unless Noted: Yes (Negative excepted noted.) Past Kgfzaxp-Rqxanh-Ngnzbh Hx Patient Social History Alcohol Use: Denies Use Recreational Drug Use: No Smoking Status: Former Smoker Former Smoker/When Quit: Sep 30, 1997 2nd Hand Smoke Exposure: Yes Recent Foreign Travel: No Contact w/Someone Who Travel: No Recent Infectious Disease Expo: No Recent Hopitalizations: No Immunizations Up To Date Tetanus Booster (TDap): Unknown Surgeries HX Surgeries: Yes (CARDIAC CATH, NO INTERVENTION) Surgeries: Gallbladder Respiratory Hx Respiratory Disorders: No Respiratory Disorders: Chronic Bronchitis Cardiovascular Hx Cardiac Disorders: Yes Cardiac Disorders: High Cholesterol, Hypertension Neurological Hx Neurological Disorders: Yes Neurological Disorders: Neuropathy Reproductive System Hx Reproductive Disorders: No Sexually Transmitted Disease: No HIV/AIDS: No Genitourinary Hx Genitourinary Disorders: No Gastrointestinal Hx Gastrointestinal Disorders: Yes (CELIAC DISEASE) Gastrointestinal Disorders: Chronic Diarrhea, Irritable Bowel Musculoskeletal Hx Musculoskeletal Disorders: Yes Musculoskeletal Disorders: Arthritis Endocrine Hx Endocrine Disorders: Yes Endocrine Disorders: Diabetes, Non-Insulin dep HEENT HX ENT Disorders: Yes (ALL TEETH REMOVED, GLASSES) Cancer Hx Cancer: No Psychosocial Hx Psychiatric Problems: Yes Behavioral Health Disorders: Anxiety, PTSD, Bipolar, Depression Integumentary HX Skin/Integumentary Disorder: No Blood Transfusions Hx Blood Disorders: No Reviewed Nursing Assessment Reviewed/Agree w Nursing PMH: Yes Family Medical History Significant Family History: Other Conditions/Hx Physical Exam Vital Signs Vital Sign - Last 12Hours Capillary Refill : Less Than 3 Seconds General Appearance: WD/WN, no apparent distress HEENT: PERRL/EOMI, TMs normal, pharyngeal erythema, tonsillar exudate, other ( mild tonsillar enlargement.) Neck: non-tender, supple, normal inspection Respiratory: lungs clear, normal breath sounds, no respiratory distress, other (left anterior and lateral ribs TTP w/o swelling, ecchymosis, or deformity.) Cardiovascular: regular rate, rhythm, no murmur Gastrointestinal: normal bowel sounds, non tender (unable to reproduce abdominal tenderness.), soft, no organomegaly, No distended Extremities: normal capillary refill Neurologic/Psychiatric: alert, normal mood/affect, oriented x 3 Skin: normal color, warm/dry Progress/Results/Core Measures Results/Orders Micro Results Microbiology 01/10/17 Influenza Types A,B Antigen (LESA) - Final, Complete My Orders Orders - LUISITO WAGONER Tramadol Tablet (Ultram Tablet) (01/10/17 11:49) Benzonatate Capsule (Tessalon Perles) (01/10/17 12:00) Vital Signs/I&O Vital Sign - Last 12Hours 01/10/17 01/10/17 11:07 11:07 Temp 95.9 Pulse 81 Resp 18 B/P (MAP) 135/83 Pulse Ox 98 O2 Delivery Room Air Room Air Blood Pressure Mean: 100 Departure Communication Progress Notes Laboratory findings discussed with the patient. Plan for discharge to home. Patient given Tessalon Perles and tramadol prior to discharge. Impression Impression: Primary Impression: Acute tonsillitis Qualified Codes: J03.90 - Acute tonsillitis, unspecified Additional Impressions: Cough Costochondritis, acute Disposition: 01 HOME, SELF-CARE Condition: Improved Departure-Patient Inst. Decision time for Depature: 11:52 Referrals: [facility] (PCP/Family) Primary Care Physician Patient Instructions: Costochondritis (DC), Sore Throat, Adult (DC) Add. Discharge Instructions: All discharge instructions reviewed with patient and/or family. Voiced understanding. Medications as instructed. Fbhz-caz-ghuuajm decongestants and antihistamines as needed for symptoms. Tylenol extra strength mkst-mfo-gnsaxcy as directed for fever or pain. Push fluids. Cool humidifier. Follow-up with your family practitioner for recheck if needed. Return to the emergency department for worsened symptoms or any other concerns. Scripts Amoxicillin (Amoxicillin) 500 Mg Capsule 500 MG PO QID, #28 CAP 0 Refills Prov: LUISITO WAGONER 01/10/17 Tramadol HCl (Tramadol HCl) 50 Mg Tablet 50 MG PO Q4H Y for PAIN-MILD TO MODERATE, #14 TAB 0 Refills Prov: LUISITO WAGONER 01/10/17 Benzonatate (Benzonatate) 200 Mg Capsule 200 MG PO Q8H Y for COUGH, #30 CAP 0 Refills Prov: LUISITO WAGONER 01/10/17 LUISITO WAGONER Jan 10, 2017 11:33
[2017-01-10] MEDS ORDERED: BENZ200C51 PO (11:56)
[2017-01-10] MEDS ORDERED: TRAM50TA2 PO (11:56)
[2017-01-10] MEDS ORDERED: AMOX500C2 PO (11:56)
[2017-01-10 12:00] VITALS: BP 135/83
[2017-01-10] MEDS ORDERED: BENZONATATE 100 MG (TESSALON) CAPSULE PO ONE (12:00)
== END 2017-01-10 12:00 | disposition home or self-care (01) ==
LOC: EDUNIT# 10:46 → ER 10:48
DX: J03.90 Acute tonsillitis, unspecified (principal); R05 Cough; M94.0 Chondrocostal junction syndrome [Tietze]; I10 Essential (primary) hypertension; E11.9 Type 2 diabetes mellitus without complications; Z79.84 Long term (current) use of oral hypoglycemic drugs; Z79.899 Other long term (current) drug therapy
CPT/HCPCS: 87804; 99282

== ENCOUNTER 2017-02-24 05:39 | Outpatient (CLI) | payer OTHER ==
[~2017-02-24] VITALS: Ht 185.4 cm; Wt 130.0 kg
[~2017-02-24 05:39] MED LIST changes: +AMOX500C2 PO; +BENZ200C51 PO; +TRAM50TA2 PO
[2017-02-24] MEDS ORDERED: HYDR50TA76 PO (12:38)
[2017-02-24] MEDS ORDERED: PROP40TA5 PO (12:38)
[2017-02-24] MEDS ORDERED: DULO60CA58 PO (12:38)
[2017-02-24] MEDS ORDERED: EXEN2PEN SQ (12:38)
[2017-02-24] MEDS ORDERED: GABA-486 PO (12:38)
== END 2017-02-24 12:44 ==
LOC: PREOP 05:39
PROVIDERS: ATTEND Surgery
DX: Z01.818 Encounter for other preprocedural examination (principal); K21.0 Gastro-esophageal reflux disease with esophagitis

== ENCOUNTER → 2017-02-27 | Day surgery (SDC) | payer OTHER ==
[~2017-02-27] MED LIST changes: +DULO60CA58 PO; +EXEN2PEN SQ; +FLUMAZENIL (ROMAZICON) 0.1 MG/ML 5 ML VIAL INJ PRN; +GABA-486 PO; +HURRICAINE EXT TUBE (BENZOCAINE) XX PRN; +HYDR50TA76 PO; +MIDAZOLAM 2 MG/2 ML (VERSED) VIAL IVP PRN; +NALOXONE 0.4 MG/ML 1 ML (NARCAN) VIAL IVP PRN; +NS IV 500 ML 500 ML IV PRN; +fentaNYL INJECTION 100 MCG/2 ML AMP IVP PRN
[2017-02-27 12:18] VITALS: BP 128/84
== END | disposition home or self-care (01) ==
LOC: ENDO 11:36
PROVIDERS: ATTEND Surgery
DX: K21.9 Gastro-esophageal reflux disease without esophagitis (principal); Z53.9 Procedure and treatment not carried out, unspecified reason

== ENCOUNTER 2017-03-20 10:40 | Day surgery (SDC) | payer OTHER ==
[~2017-03-20] VITALS: Ht 185.4 cm; Wt 130.0 kg
[~2017-03-20 10:40] MED LIST changes: -FLUMAZENIL (ROMAZICON) 0.1 MG/ML 5 ML VIAL INJ PRN; -HURRICAINE EXT TUBE (BENZOCAINE) XX PRN; -MIDAZOLAM 2 MG/2 ML (VERSED) VIAL IVP PRN; -NALOXONE 0.4 MG/ML 1 ML (NARCAN) VIAL IVP PRN; -NS IV 500 ML 500 ML IV PRN; -fentaNYL INJECTION 100 MCG/2 ML AMP IVP PRN
[2017-03-20] MEDS ORDERED: FLUMAZENIL (ROMAZICON) 0.1 MG/ML 5 ML VIAL INJ PRN (10:45)
[2017-03-20] MEDS ORDERED: NALOXONE 0.4 MG/ML 1 ML (NARCAN) VIAL IVP PRN (10:45)
[2017-03-20] MEDS ORDERED: NS IV 500 ML 500 ML IV PRN (10:45)
[2017-03-20 11:03] VITALS: BP 128/90
[2017-03-20] MEDS ORDERED: METF-478 PO (11:10)
[2017-03-20] MEDS ORDERED: MIDAZOLAM 2 MG/2 ML (VERSED) VIAL ONE ×4 (12:16)
[2017-03-20] MEDS ORDERED: fentaNYL INJECTION 100 MCG/2 ML AMP ONE (12:16)
[2017-03-20] MEDS ORDERED: HURRICAINE EXT TUBE (BENZOCAINE) ONE (12:16)
[2017-03-20] MEDS: fentaNYL INJECTION 100 MCG/2 ML AMP IVP PRN ×2 (12:30→12:32)
[2017-03-20] MEDS: MIDAZOLAM 2 MG/2 ML (VERSED) VIAL IVP PRN ×4 (12:31→12:41)
--- NOTE | 2017-03-20 12:52 | Conscious Sedation/ASA ---
Conscious Sedation Pre-Proced Time Reviewed: 12:05 ASA Class: 2 Airway Mallampati Classification: (crow appropriate class) I. II. III, IV Lungs Heart ASA score ASA 1: a normal healthy patient ASA 2: a patient with a mild systemic disease (mid diabetes, controlled hypertension, obesity ASA 3: a patient with a severe systemic disease that limits activity (angina , COPD, prior Myocardial infarction) ASA 4: a patient with an incapacitating disease that is a constant threat to life (CHF, renal failure) ASA 5: a moribund patient not expected to survive 24 hrs. (ruptured aneurysm) ASA 6: a declared brain patient whose organs are being harvested. For emergent operations, add the letter E after the classification Grade 1 Sedation Plan: Discussed options with patient/fam Note The patient is an appropriate candidate to undergo the planned procedure, sedation, and anesthesia. The patient immediately re-assessed prior to indication. LISSETT REINOSO MD Mar 20, 2017 12:52 pm
--- NOTE | 2017-03-20 12:52 | Endoscopy Procedure Report ---
Endoscopy Report Date: Mar 20, 2017 Preoperative Diagnosis: GERD Study Performed: Upper Endoscopy Procedure Instrument: Endoscope Endo Procedure/Findings Findings 1.: Hiatal Hernia, Gastritis LISSETT REINOSO MD Mar 20, 2017 12:52 pm
[2017-03-20] MEDS ORDERED: PANT40TA2 PO (12:53)
--- NOTE | 2017-03-20 12:54 | Discharge Inst-Simple/Standard ---
Discharge Inst-Standard Discharge Medications New, Converted or Re-Newed RX: RX on Chart Patient Instructions/Follow Up Plan of Care/Instructions/FU: follow-up with his primary Activity as Tolerated: Yes Discharge Diet: ADA Diet LISSETT REINOSO MD Mar 20, 2017 12:54 pm
[2017-03-20 13:10] VITALS: BP 133/75
[2017-03-20] MEDS ORDERED: HURRICAINE EXT TUBE (BENZOCAINE) XX ONE (13:15)
[2017-03-20 13:40] VITALS: BP 138/78
[2017-03-20 14:00] VITALS: BP 138/78
--- OUTSIDE RECORDS SUMMARY | 2017-03-20 23:19 | XMS REPORT | Continuity of Care Document ---
Author Author [facility] Address Unknown Phone Unavailable Allergies Active Description Code Type Severity Reaction Onset Reported/Identified Relationship to Patient Clinical Status Yes codeine Drug Allergy N/A N/A 01/15/2009 Yes gluten Food Allergy N/A N/A 01/15/2009 Yes codeine Drug Allergy 01/15/2009 Yes gluten Food Allergy 01/15/2009 Yes Naproxen Sodium DS Drug Allergy 01/15/2009 Yes codeine [id number] Drug Allergy Mild N/A 10/22/2009 Yes naproxen [id number] Drug Allergy Mild N/A 10/22/2009 Yes latex [id number] Drug Allergy Mild RASH 01/19/2011 Yes Neosporin Drug Allergy N/A N/A 05/15/2012 Yes Neosporin Drug Allergy 05/15/2012 Yes latex Drug Allergy N/A N/A 07/03/2012 Yes latex Drug Allergy 07/03/2012 Yes doxepin 50 mg capsule Drug Allergy N/A N/A 12/11/2012 Yes doxepin 50 mg capsule Drug Allergy 12/11/2012 Yes bacitracin [id number] Drug Allergy Unknown N/A 12/01/2015 Yes bupropion [id number] Drug Allergy Unknown N/A 12/01/2015 Yes cephalexin [id number] Drug Allergy Unknown N/A 12/01/2015 Yes corn [id number] Drug Allergy Unknown N/A 12/01/2015 Yes doxepin [id number] Drug Allergy Unknown N/A 12/01/2015 Yes gluten [id number] Drug Allergy Unknown N/A 12/01/2015 Yes lurasidone [id number] Drug Allergy Unknown N/A 12/01/2015 Yes neomycin [id number] Drug Allergy Unknown N/A 12/01/2015 Yes paroxetine [id number] Drug Allergy Unknown N/A 12/01/2015 Yes polymyxin B [id number] Drug Allergy Unknown N/A 12/01/2015 Yes sertraline [id number] Drug Allergy Unknown N/A 12/01/2015 Yes ziprasidone [id number] Drug Allergy Unknown N/A 12/01/2015 Medications Problems [...] Routine, At Health Care Facility 01/15/2009 JEANNETTE PARKING METER MECHANIC, CHELSIE T V70.0 General Medical Exam, Routine, [...] UNSPECIFIED 03/04/2009 272.4 HYPERLIPIDEMIA UNSPECIFIED 03/04/2009 COREA PARKING METER MECHANIC, CARMEN FROYLAN 272.4 HYPERLIPIDEMIA UNSPECIFIED 03/04/2009 JEANNETTE PARKING METER MECHANIC, CHELSIE T 272.4 HYPERLIPIDEMIA UNSPECIFIED 03/04/2009 COREA PARKING METER MECHANIC, CARMEN FROYLAN 272.4 HYPERLIPIDEMIA UNSPECIFIED 03/04/2009 JEANNETTE PARKING METER MECHANIC, CHELSIE T 272.4 HYPERLIPIDEMIA UNSPECIFIED 03/04/2009 JEANNETTE PARKING METER MECHANIC, CHELSIE T 272.4 HYPERLIPIDEMIA UNSPECIFIED 03/04/2009 JEANNETTE PARKING METER MECHANIC, CHELSIE T 272.4 HYPERLIPIDEMIA UNSPECIFIED 03/04/2009 KRYSTA PARKING METER MECHANIC, HALINA R 272.4 HYPERLIPIDEMIA UNSPECIFIED 03/04/2009 JEANNETTE PARKING METER MECHANIC, CHELSIE T 272.4 HYPERLIPIDEMIA UNSPECIFIED 03/04/2009 COREA PARKING METER MECHANIC, CARMEN GALEANO 272.4 HYPERLIPIDEMIA UNSPECIFIED 03/04/2009 COREA PARKING METER MECHANIC, CARMEN FROYLAN 272.4 HYPERLIPIDEMIA UNSPECIFIED 03/04/2009 JEANNETTE PARKING METER MECHANIC, CHELSIE T 272.4 HYPERLIPIDEMIA UNSPECIFIED 03/04/2009 SUZANNE PARKING METER MECHANIC, JANEL 272.4 HYPERLIPIDEMIA UNSPECIFIED 03/04/2009 JEANNETTE PARKING METER MECHANIC, CHELSIE T 272.4 HYPERLIPIDEMIA UNSPECIFIED 03/04/2009 JEANNETTE PARKING METER MECHANIC, CHELSIE T 272.4 HYPERLIPIDEMIA UNSPECIFIED 03/04/2009 JEANNETTE PARKING METER MECHANIC, CHELSIE T 272.4 HYPERLIPIDEMIA UNSPECIFIED 10/19/2009 CHEIKH [...] CHELSIE T 786.50 CHEST PAIN 10/19/2009 NAHOMY PARKING METER MECHANIC, CARMEN GALEANO 786.50 CHEST PAIN 10/19/2009 JEANNETTE TURK, CHELSIE T 786.50 CHEST PAIN 10/19/2009 JEANNETTE TURK, CHELSIE T 786.50 CHEST PAIN 10/19/2009 JEANNETTE TURK, CHELSIE T 786.50 CHEST PAIN 10/19/2009 KRYSTA PARKING METER MECHANIC, HALINA R 786.50 CHEST PAIN 10/19/2009 JEANNETTE TURK, CHELSIE T 786.50 CHEST PAIN 10/19/2009 NAHOMY PARKING METER MECHANIC, CARMEN GALEANO 786.50 CHEST PAIN 10/19/2009 NAHOMY PARKING METER MECHANIC, CARMEN GALEANO 786.50 CHEST PAIN 10/19/2009 JEANNETTE TURK, CHELSIE T 786.50 CHEST PAIN 10/19/2009 SUZANNE PARKING METER MECHANIC, JANEL 786.50 CHEST PAIN 10/19/2009 JEANNETTE TURK, [...] APRN 296.80 MO BIPOLAR NOS 06/01/2010 JEANNETTE PARKING METER MECHANIC, CHELSIE T 296.80 MO BIPOLAR NOS 06/01/2010 [...] APRN 300.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 02/02/2011 CHELSIE MACHAOD APRN 300.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 02/02/2011 CHELSIE MACHADO APRN 300.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 02/02/2011 HALINA CHAPARRO APRN 300.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 02/02/2011 CHELSIE [...] APRN 401.1 HYPERTENSION, BENIGN ESSENTIAL 11/29/2011 CHELSIE MAHCADO APRN 401.1 HYPERTENSION, BENIGN ESSENTIAL 11/29/2011 JANEL [...] MACHADO APRN 372.30 Conjunctivitis Unspecified 05/02/2012 KRYSTA TURK HALINA R 372.30 Conjunctivitis Unspecified 05/02/2012 CHELSIE MACHADO APRN 372.30 Conjunctivitis Unspecified 05/02/2012 CARMEN COREA APRN 372.30 Conjunctivitis Unspecified 05/02/2012 CARMEN COREA APRN 372.30 Conjunctivitis Unspecified 05/02/2012 CHELSIE MACHADO APRN 372.30 Conjunctivitis Unspecified 05/02/2012 JANEL PALACIOS APRN 372.30 Conjunctivitis Unspecified 05/02/2012 JEANNETTE PARKING METER MECHANIC, CHELSIE T 372.30 Conjunctivitis Unspecified 05/02/2012 CHELSIE [...] TURK 369.9 Visual Loss Unspecified 05/15/2012 CHELSIE MACHAOD APRN 369.9 Visual Loss Unspecified 05/15/2012 CHELSIE MACHADO APRN 369.9 Visual Loss Unspecified 05/15/2012 CHELSIE MACHADO APRN T 369.9 Visual Loss Unspecified 05/15/2012 KRYSTA TURK HALINA R 369.9 Visual Loss Unspecified 05/15/2012 CHELSIE MACHADO APRN T 369.9 Visual Loss Unspecified 05/15/2012 COREA PARKING METER MECHANICCARMEN Trevino 369.9 Visual Loss Unspecified 05/15/2012 COREA [...] R 783.21 LOSS OF WEIGHT 03/19/2014 KRYSTA TURK HALINA R 787.91 DIARRHEA 03/19/2014 CHELSIE MACHADO APRN T 783.21 LOSS OF WEIGHT 03/19/2014 CHELSIE MACHADO APRN 787.91 DIARRHEA 03/19/2014 CARMEN COREA APRN 783.21 LOSS OF WEIGHT 03/19/2014 CARMEN COREA APRN 787.91 DIARRHEA 03/19/2014 CARMEN COREA APRN 783.21 LOSS OF WEIGHT 03/19/2014 CARMEN COREA APRN 787.91 DIARRHEA 03/19/2014 JEANNETTE CHELSIE TURK T 783.21 LOSS OF WEIGHT 03/19/2014 CHELSIE MACHADO APRN T 787.91 DIARRHEA 03/19/2014 SUZANNE PARKING METER MECHANIC, JANEL 783.21 LOSS OF WEIGHT 03/19/2014 SUZANNE PARKING METER MECHANIC, JANEL 787.91 DIARRHEA 03/19/2014 CHELSIE MACHADO APRN T 783.21 LOSS OF WEIGHT 03/19/2014 CHELSIE MACHADO APRN T 787.91 DIARRHEA 03/19/2014 JEANNETTE PARKING METER MECHANICCHELSIE Trevino T 783.21 LOSS OF WEIGHT 03/19/2014 [...] 786.50 CHEST PAIN NOS 05/08/2015 CHELSIE MACHADO MAINTENANCE DISPATCHER Ot 780.93 05/08/2015 CHELSIE MACHADO MAINTENANCE DISPATCHER Ot V81.5 05/26/2015 CHELSIE MACHADO MAINTENANCE DISPATCHER Ot 780.93 05/26/2015 CHELSIE MACHADOP Ot V81.5 06/27/2015 CHELSIE MACHADO Ot G47.10 HYPERSOMNIA, UNSPECIFIED 06/27/2015 CHELSIE MACHADO Ot R06.83 SNORING 07/20/2015 CHELSIE MACHADO MAINTENANCE DISPATCHER Ot 780.93 07/20/2015 CHELSIE MACHADO MAINTENANCE DISPATCHER Ot V81.5 10/16/2015 CELINE DAS, ALI FACP [...] FACC, ALI FACP CCDS Ot Z79.899 OTHER SKILLED NURSING (CURRENT) DRUG THERAPY 10/20/2015 CELINE CARD FACC, ALI FACP CCDS Ot Z87.891 PERSONAL HISTORY OF NICOTINE DEPENDENCE 11/06/2015 CHELSIE MACHADO MAINTENANCE DISPATCHER Ot 780.93 11/06/2015 CHELSIE MACHADO MAINTENANCE DISPATCHER Ot V81.5 11/06/2015 YOLANDA MENDOZA MAINTENANCE DISPATCHER Ot E78.5 11/06/2015 YOLANDA MENDOZA MAINTENANCE DISPATCHER Ot E87.6 11/06/2015 YOLANDA MENDOZA MAINTENANCE DISPATCHER Ot I10 11/06/2015 YOLANDA MENDOZA MAINTENANCE DISPATCHER Ot R07.9 11/06/2015 YOLANDA MENDOZA L MAINTENANCE DISPATCHER Ot R10.30 11/06/2015 CELINE CARD FACC, ALI FACP CCDS Ot R07.89 12/01/2015 SVITLANA CARD, PAUL Lopez Ot F13.239 SEDATV/HYP/ANXIOLYTC DEPENDENCE W WITHDR 12/04/2015 CELINE CARD FACC, ALI FACP CCDS Ot R07.89 12/04/2015 YOLANDA MENDOZA MAINTENANCE DISPATCHER Ot E78.5 12/04/2015 YOLANDA MENDOZA L MAINTENANCE DISPATCHER Ot E87.6 12/04/2015 YOLANDA MENDOZA L MAINTENANCE DISPATCHER Ot I10 12/04/2015 YOLANDA MENDOZA L MAINTENANCE DISPATCHER Ot R07.9 12/04/2015 BAIYOLANDA SILVA MAINTENANCE DISPATCHER Ot R10.30 12/05/2015 SVITLANA CARD, PAUL Lopez Ot F13.239 12/15/2015 CHELSIE MACHADO MAINTENANCE DISPATCHER Ot N63 12/15/2015 CHELSIE MACHADO MAINTENANCE DISPATCHER Ot R07.89 12/15/2015 CHELSIE MACHADO MAINTENANCE DISPATCHER Ot R22.2 01/06/2016 CELINE CARD [facility], ALI [facility] CCDS Ot R07.89 01/06/2016 YOLANDA MENDOZA MAINTENANCE DISPATCHER Ot E78.5 01/06/2016 BAIRICARDO YOLANDA L MAINTENANCE DISPATCHER Ot E87.6 01/06/2016 BAIRICARDO YOLANDA L MAINTENANCE DISPATCHER Ot I10 01/06/2016 YOLANDA MENDOZA L MAINTENANCE DISPATCHER Ot R07.9 01/06/2016 YOLANDA MENDOZA MAINTENANCE DISPATCHER Ot R10.30 01/06/2016 CHELSIE MACHADO MAINTENANCE DISPATCHER Ot N63 01/06/2016 CHELSIE MACHADO MAINTENANCE DISPATCHER Ot R07.89 01/06/2016 CHELSIE MACHADO MAINTENANCE DISPATCHER Ot R22.2 01/06/2016 LAURITA RICHARDS DO Ot E11.9 TYPE 2 DIABETES MELLITUS WITHOUT COMPLIC 01/06/2016 LAURITA RICHARDS DO K Ot F41.9 ANXIETY DISORDER, UNSPECIFIED 01/06/2016 LAURITA RICHARDS DO K Ot R10.12 LEFT UPPER QUADRANT PAIN 01/06/2016 LAURITA RICHARDS DO K Ot R11.0 NAUSEA 01/06/2016 LAURITA RICHARDS DO K Ot Z87.891 PERSONAL HISTORY OF NICOTINE DEPENDENCE 01/06/2016 CELINE CARD [facility], ALI [facility] CCDS Ot R07.89 01/06/2016 YOLANDA MENDOZA MAINTENANCE DISPATCHER Ot E78.5 01/06/2016 YOLANDA MENDOZA L MAINTENANCE DISPATCHER Ot E87.6 01/06/2016 YOLANDA MENDOZA MAINTENANCE DISPATCHER Ot I10 01/06/2016 YOLANDA MENDOZA MAINTENANCE DISPATCHER Ot R07.9 01/06/2016 YOLANDA MENDOZA MAINTENANCE DISPATCHER Ot R10.30 01/06/2016 CHELSIE MACHADO MAINTENANCE DISPATCHER Ot N63 01/06/2016 CHELSIE MACHADO MAINTENANCE DISPATCHER Ot R07.89 01/06/2016 CHELSIE MACHADO MAINTENANCE DISPATCHER Ot R22.2 01/07/2016 MAURICE DO, LAURITA K [...] OTHER CHEST PAIN 01/11/2016 BAIMA, YOLANDA L MAINTENANCE DISPATCHER Ot E78.5 HYPERLIPIDEMIA, UNSPECIFIED 01/11/2016 BAIMA, YOLANDA L MAINTENANCE DISPATCHER Ot E87.6 HYPOKALEMIA 01/11/2016 BAIMA, YOLANDA L MAINTENANCE DISPATCHER Ot I10 ESSENTIAL (PRIMARY) HYPERTENSION 01/11/2016 BAIMA, YOLANDA L MAINTENANCE DISPATCHER Ot R07.9 CHEST PAIN, UNSPECIFIED 01/11/2016 BAIMA, YOLANDA L MAINTENANCE DISPATCHER Ot R10.30 LOWER ABDOMINAL PAIN, UNSPECIFIED 01/11/2016 CHELSIE MACHADO MAINTENANCE DISPATCHER Ot N63 UNSPECIFIED LUMP IN BREAST 01/11/2016 CHELSIE MACHADO MAINTENANCE DISPATCHER Ot R07.89 OTHER CHEST PAIN 01/11/2016 CHELSIE MACHADO MAINTENANCE DISPATCHER Ot R22.2 LOCALIZED SWELLING, MASS AND LUMP, TRUNK 01/11/2016 BAIMA, YOLANDA L MAINTENANCE DISPATCHER Ot E78.5 HYPERLIPIDEMIA, UNSPECIFIED 01/11/2016 BAIMA, YOLANDA L MAINTENANCE DISPATCHER Ot E87.6 HYPOKALEMIA 01/11/2016 BAIMA, YOLANDA L MAINTENANCE DISPATCHER Ot I10 ESSENTIAL (PRIMARY) HYPERTENSION 01/11/2016 BAIMA, YOLANDA L MAINTENANCE DISPATCHER Ot R07.9 CHEST PAIN, UNSPECIFIED 01/11/2016 BAIMA, YOLANDA L MAINTENANCE DISPATCHER Ot R10.30 LOWER ABDOMINAL PAIN, UNSPECIFIED 01/11/2016 CHELSIE MACHADO MAINTENANCE DISPATCHER Ot N63 UNSPECIFIED LUMP IN BREAST 01/11/2016 JEANNETTE CHELSIE Tremaine MAINTENANCE DISPATCHER Ot R07.89 OTHER CHEST PAIN 01/11/2016 JEANNETTE CHELSIE Penaloza MAINTENANCE DISPATCHER Ot R22.2 LOCALIZED SWELLING, MASS AND LUMP, TRUNK 01/11/2016 JEANNETTE CHELSIE Tremaine MAINTENANCE DISPATCHER Ot 780.93 MEMORY LOSS 01/11/2016 JEANNETTECHELSIE MAINTENANCE DISPATCHER Ot V81.5 SCREEN FOR NEPHROPATHY 01/11/2016 CELINE CARD FAC, ALI [facility] CCDS Ot R07.89 OTHER CHEST PAIN 01/11/2016 BAIMA YOLANDA L MAINTENANCE DISPATCHER Ot E78.5 HYPERLIPIDEMIA, UNSPECIFIED 01/11/2016 BAIMA, YOLANDA L MAINTENANCE DISPATCHER Ot E87.6 HYPOKALEMIA 01/11/2016 BAIMA, YOLANDA L MAINTENANCE DISPATCHER Ot I10 ESSENTIAL (PRIMARY) HYPERTENSION 01/11/2016 BAIMA YOLANDA L MAINTENANCE DISPATCHER Ot R07.9 CHEST PAIN, UNSPECIFIED 01/11/2016 BAIMA, YOLANDA L MAINTENANCE DISPATCHER Ot R10.30 LOWER ABDOMINAL PAIN, UNSPECIFIED 01/11/2016 CHELSIE MACHADO MAINTENANCE DISPATCHER Ot N63 UNSPECIFIED LUMP IN BREAST 01/11/2016 CHELSIE MACHADO MAINTENANCE DISPATCHER Ot R07.89 OTHER CHEST PAIN 01/11/2016 JEANNETTE CHELSIE Tremaine MAINTENANCE DISPATCHER Ot R22.2 LOCALIZED SWELLING, MASS AND LUMP, TRUNK 01/21/2016 CELINE CARD [facility], ALI FAC CCDS Ot R07.89 OTHER CHEST PAIN 01/21/2016 BAIMA YOLANDA L MAINTENANCE DISPATCHER Ot E78.5 HYPERLIPIDEMIA, UNSPECIFIED 01/21/2016 BAIMA, YOLANDA L MAINTENANCE DISPATCHER Ot E87.6 HYPOKALEMIA 01/21/2016 BAIMA YOLANDA L MAINTENANCE DISPATCHER Ot I10 ESSENTIAL (PRIMARY) HYPERTENSION 01/21/2016 BAIMA YOLANDA L MAINTENANCE DISPATCHER Ot R07.9 CHEST PAIN, UNSPECIFIED 01/21/2016 BAIMA, YOLANDA L MAINTENANCE DISPATCHER Ot R10.30 LOWER ABDOMINAL PAIN, UNSPECIFIED 01/22/2016 CHELSIE MACHADO MAINTENANCE DISPATCHER Ot N63 UNSPECIFIED LUMP IN BREAST 01/22/2016 CHELSIE MACHADO MAINTENANCE DISPATCHER Ot R07.89 OTHER CHEST PAIN 01/22/2016 CHELSIE MACHADO MAINTENANCE DISPATCHER Ot R22.2 LOCALIZED SWELLING, MASS AND LUMP, TRUNK 02/04/2016 CELINE CARD FAC, ALI FAC CCDS Ot R07.89 OTHER CHEST PAIN 02/04/2016 BAIYOLANDA SILVA L MAINTENANCE DISPATCHER Ot E78.5 HYPERLIPIDEMIA, UNSPECIFIED 02/04/2016 BAIMA YOLANDA L MAINTENANCE DISPATCHER Ot E87.6 HYPOKALEMIA 02/04/2016 BAIMA YOLANDA L MAINTENANCE DISPATCHER Ot I10 ESSENTIAL (PRIMARY) HYPERTENSION 02/04/2016 BAIMAYOLANDA L MAINTENANCE DISPATCHER Ot R07.9 CHEST PAIN, UNSPECIFIED 02/04/2016 BAIMA YOLANDA L MAINTENANCE DISPATCHER Ot R10.30 LOWER ABDOMINAL PAIN, UNSPECIFIED 02/04/2016 CHELSIE MACHADO MAINTENANCE DISPATCHER Ot N63 UNSPECIFIED LUMP IN BREAST 02/04/2016 CHELSIE MACHADO MAINTENANCE DISPATCHER Ot R07.89 OTHER CHEST PAIN 02/04/2016 CHELSIE MACHADO MAINTENANCE DISPATCHER Ot R22.2 LOCALIZED SWELLING, MASS AND LUMP, TRUNK 02/15/2016 JOSAFAT JUAREZ DO Ot N63 UNSPECIFIED LUMP IN BREAST 02/15/2016 JOSAFAT JUAREZ DO Ot Z01.818 ENCOUNTER FOR OTHER PREPROCEDURAL EXAMIN 02/15/2016 JOSAFAT JUAREZ DO Ot Z11.2 ENCOUNTER FOR SCREENING FOR OTHER BACTER 02/18/2016 JOSAFAT JUAREZ DO Ot D17.1 BENIGN LIPOMATOUS NEOPLASM OF SKIN, SUBC 02/18/2016 JOSAFAT JUAREZ DO Ot Z79.899 OTHER LINOTYPE OPERATOR (CURRENT) DRUG THERAPY 02/19/2016 JUAREZ JOSAFAT CANAS Ot D17.1 BENIGN LIPOMATOUS NEOPLASM OF SKIN, SUBC 02/19/2016 JOSAFAT JUAREZ DO Ot Z79.899 OTHER LINOTYPE OPERATOR (CURRENT) DRUG THERAPY 03/01/2016 CHELSIE MACHADO MAINTENANCE DISPATCHER Ot 780.93 MEMORY LOSS 03/01/2016 CHELSIE MACHADOP Ot V81.5 SCREEN FOR NEPHROPATHY 03/01/2016 CELINE CARD FACNIXON Rm FACP CCDS Ot R07.89 OTHER CHEST PAIN 03/01/2016 BAIYOLANDA SILVA MAINTENANCE DISPATCHER Ot E78.5 HYPERLIPIDEMIA, UNSPECIFIED 03/01/2016 BAIYOLANDA SILVA L MAINTENANCE DISPATCHER Ot E87.6 HYPOKALEMIA 03/01/2016 BAIKARI SILVAHER L MAINTENANCE DISPATCHER Ot I10 ESSENTIAL (PRIMARY) HYPERTENSION 03/01/2016 BAIYOLANDA SILVA L MAINTENANCE DISPATCHER Ot R07.9 CHEST PAIN, UNSPECIFIED 03/01/2016 BAIMA YOLANDA L MAINTENANCE DISPATCHER Ot R10.30 LOWER ABDOMINAL PAIN, UNSPECIFIED 03/01/2016 CHELSIE MACHADO MAINTENANCE DISPATCHER Ot N63 UNSPECIFIED LUMP IN BREAST 03/01/2016 CHELSIE MACHADO MAINTENANCE DISPATCHER Ot R07.89 OTHER CHEST PAIN 03/01/2016 CHELSIE MACHADO MAINTENANCE DISPATCHER Ot R22.2 LOCALIZED SWELLING, MASS AND LUMP, TRUNK 03/01/2016 JUAREZ DO, JOSAFAT D Ot N63 UNSPECIFIED LUMP IN BREAST 03/01/2016 CELINE CARD [facility], [facility] CCDS Ot R07.89 OTHER CHEST PAIN 03/01/2016 BAIMA, YOLANDA L MAINTENANCE DISPATCHER Ot E78.5 HYPERLIPIDEMIA, UNSPECIFIED 03/01/2016 BAIMA, YOLANDA L MAINTENANCE DISPATCHER Ot E87.6 HYPOKALEMIA 03/01/2016 BAIMA, YOLANDA L MAINTENANCE DISPATCHER Ot I10 ESSENTIAL (PRIMARY) HYPERTENSION 03/01/2016 BAIMA, YOLANDA L MAINTENANCE DISPATCHER Ot R07.9 CHEST PAIN, UNSPECIFIED 03/01/2016 BAIMA, YOLANDA L MAINTENANCE DISPATCHER Ot R10.30 LOWER ABDOMINAL PAIN, UNSPECIFIED 03/01/2016 CHELSIE MACHADO MAINTENANCE DISPATCHER Ot N63 UNSPECIFIED LUMP IN BREAST 03/01/2016 CHELSIE MACHADO MAINTENANCE DISPATCHER Ot R07.89 OTHER CHEST PAIN 03/01/2016 CHELSIE MACHADO MAINTENANCE DISPATCHER Ot R22.2 LOCALIZED SWELLING, MASS AND LUMP, TRUNK 03/01/2016 LAWTON JOSAFAT CANAS Ot N63 UNSPECIFIED LUMP IN BREAST 04/20/2016 CHESLIE MACHADO MAINTENANCE DISPATCHER Ot 780.93 MEMORY LOSS 04/20/2016 CHELSIE MACHADO MAINTENANCE DISPATCHER Ot V81.5 SCREEN FOR NEPHROPATHY 04/20/2016 CELINE CARD [facility], [facility] CCDS Ot R07.89 OTHER CHEST PAIN 04/20/2016 BAIMA, YOLANDA L MAINTENANCE DISPATCHER Ot E78.5 HYPERLIPIDEMIA, UNSPECIFIED 04/20/2016 BAIMA, YOLANDA L MAINTENANCE DISPATCHER Ot E87.6 HYPOKALEMIA 04/20/2016 BAIMA, YOLANDA L MAINTENANCE DISPATCHER Ot I10 ESSENTIAL (PRIMARY) HYPERTENSION 04/20/2016 BAIMA, YOLANDA L MAINTENANCE DISPATCHER Ot R07.9 CHEST PAIN, UNSPECIFIED 04/20/2016 BAIMA, YOLANDA L MAINTENANCE DISPATCHER Ot R10.30 LOWER ABDOMINAL PAIN, UNSPECIFIED 04/20/2016 CHELSIE MACHADO MAINTENANCE DISPATCHER Ot N63 UNSPECIFIED LUMP IN BREAST 04/20/2016 CHELSIE MACHADO MAINTENANCE DISPATCHER Ot R07.89 OTHER CHEST PAIN 04/20/2016 CHELSIE MACHADO MAINTENANCE DISPATCHER Ot R22.2 LOCALIZED SWELLING, MASS AND LUMP, TRUNK 04/20/2016 JOSAFAT JUAREZ DO Ot N63 UNSPECIFIED LUMP IN BREAST 12/19/2016 CELINE CARD FACC, [facility] CCDS Ot R07.89 OTHER CHEST PAIN 12/19/2016 BAIRICARDO YOLANDA L MAINTENANCE DISPATCHER Ot E78.5 HYPERLIPIDEMIA, UNSPECIFIED 12/19/2016 BAIRICARDO YOLANDA L MAINTENANCE DISPATCHER Ot E87.6 HYPOKALEMIA 12/19/2016 REJI YOLANDA L MAINTENANCE DISPATCHER Ot I10 ESSENTIAL (PRIMARY) HYPERTENSION 12/19/2016 IKERRICARDO YOLANDA L MAINTENANCE DISPATCHER Ot R07.9 CHEST PAIN, UNSPECIFIED 12/19/2016 YOLANDA MENDOZA MAINTENANCE DISPATCHER Ot R10.30 LOWER ABDOMINAL PAIN, UNSPECIFIED 12/19/2016 CHELSIE MACHADO MAINTENANCE DISPATCHER Ot N63 UNSPECIFIED LUMP IN BREAST 12/19/2016 CHELSIE MACHADO MAINTENANCE DISPATCHER Ot R07.89 OTHER CHEST PAIN 12/19/2016 CHELSIE MACHADO MAINTENANCE DISPATCHER Ot R22.2 LOCALIZED SWELLING, MASS AND LUMP, [...] QUADRANT PAIN 12/19/2016 LUISITO ROBERTS Ot Z79.84 LINOTYPE OPERATOR (CURRENT) USE OF ORAL HYPOGLYC 12/19/2016 LUISITO ROBERTS Ot 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 12/19/2016 CELINE DAS, ALI [facility] CCDS Ot R07.89 OTHER CHEST PAIN 12/19/2016 BAIYOLANDA SILVA L MAINTENANCE DISPATCHER Ot E78.5 HYPERLIPIDEMIA, UNSPECIFIED 12/19/2016 BAIMA, YOLANDA L MAINTENANCE DISPATCHER Ot E87.6 HYPOKALEMIA 12/19/2016 BAIMA, YOLANDA L MAINTENANCE DISPATCHER Ot I10 ESSENTIAL (PRIMARY) HYPERTENSION 12/19/2016 BAIMA, YOLANDA L MAINTENANCE DISPATCHER Ot R07.9 CHEST PAIN, UNSPECIFIED 12/19/2016 BAIMA, YOLANDA L MAINTENANCE DISPATCHER Ot R10.30 LOWER ABDOMINAL PAIN, UNSPECIFIED 12/19/2016 CHELSIE MACHADO MAINTENANCE DISPATCHER Ot N63 UNSPECIFIED LUMP IN BREAST 12/19/2016 CHELSIE MACHADO MAINTENANCE DISPATCHER Ot R07.89 OTHER CHEST PAIN 12/19/2016 CHELSIE MACHADOP Ot R22.2 LOCALIZED SWELLING, MASS AND LUMP, TRUNK 12/19/2016 JUAREZ DOJOSAFAT D Ot N63 UNSPECIFIED LUMP IN BREAST 12/28/2016 CHELSIE MACHADO MAINTENANCE DISPATCHER Ot 780.93 MEMORY LOSS 12/28/2016 CHELSIE MACHADO MAINTENANCE DISPATCHER Ot V81.5 SCREEN FOR NEPHROPATHY 12/28/2016 CELINE DAS, [facility] CCDS Ot R07.89 OTHER CHEST PAIN 12/28/2016 IKERYOLANDA SILVA L MAINTENANCE DISPATCHER Ot E78.5 HYPERLIPIDEMIA, UNSPECIFIED 12/28/2016 BAIMA, YOLANDA L MAINTENANCE DISPATCHER Ot E87.6 HYPOKALEMIA 12/28/2016 IKERRICARDO, YOLANDA L MAINTENANCE DISPATCHER Ot I10 ESSENTIAL (PRIMARY) HYPERTENSION 12/28/2016 IKERRICARDO YOLANDA L MAINTENANCE DISPATCHER Ot R07.9 CHEST PAIN, UNSPECIFIED 12/28/2016 BAIMA, YOLANDA L MAINTENANCE DISPATCHER Ot R10.30 LOWER ABDOMINAL PAIN, UNSPECIFIED 12/28/2016 CHELSIE MACHADO MAINTENANCE DISPATCHER Ot N63 UNSPECIFIED LUMP IN BREAST 12/28/2016 CHELSIE MACHADO MAINTENANCE DISPATCHER Ot R07.89 OTHER CHEST PAIN 12/28/2016 CHELSIE MACHADO MAINTENANCE DISPATCHER Ot R22.2 LOCALIZED SWELLING, MASS AND LUMP, TRUNK 12/28/2016 JUAREZ DOJOSAFAT D Ot N63 UNSPECIFIED LUMP IN BREAST 01/10/2017 CELINE CARD [facility], [facility] CCDS Ot R07.89 OTHER CHEST PAIN 01/10/2017 BAIMA, YOLANDA L MAINTENANCE DISPATCHER Ot E78.5 HYPERLIPIDEMIA, UNSPECIFIED 01/10/2017 BAIMA, YOLANDA L MAINTENANCE DISPATCHER Ot E87.6 HYPOKALEMIA 01/10/2017 BAIMA, YOLANDA L MAINTENANCE DISPATCHER Ot I10 ESSENTIAL (PRIMARY) HYPERTENSION 01/10/2017 BAIMA YOLANDA L MAINTENANCE DISPATCHER Ot R07.9 CHEST PAIN, UNSPECIFIED 01/10/2017 BAIMA, YOLANDA L MAINTENANCE DISPATCHER Ot R10.30 LOWER ABDOMINAL PAIN, UNSPECIFIED 01/10/2017 CHELSIE MACHADO MAINTENANCE DISPATCHER Ot N63 UNSPECIFIED LUMP IN BREAST 01/10/2017 CHELSIE MACHADO MAINTENANCE DISPATCHER Ot R07.89 OTHER CHEST PAIN 01/10/2017 JEANNETTE CHELSIE Penaloza MAINTENANCE DISPATCHER Ot R22.2 LOCALIZED SWELLING, MASS AND LUMP, TRUNK 01/10/2017 JOSAFAT JUAREZ DO Ot N63 UNSPECIFIED LUMP IN BREAST 02/24/2017 JEANNETTE CHELSIE Penaloza MAINTENANCE DISPATCHER Ot 780.93 MEMORY LOSS 02/24/2017 JEANNETTE CHELSIE Penaloza MAINTENANCE DISPATCHER Ot V81.5 SCREEN FOR NEPHROPATHY 02/24/2017 CELINE CARD [facility], [facility] CCDS Ot R07.89 OTHER CHEST PAIN 02/24/2017 BAIRICARDO, YOLANDA L MAINTENANCE DISPATCHER Ot E78.5 HYPERLIPIDEMIA, UNSPECIFIED 02/24/2017 BAIRICARDO, YOLANDA L MAINTENANCE DISPATCHER Ot E87.6 HYPOKALEMIA 02/24/2017 BAIRICARDO, YOLANDA L MAINTENANCE DISPATCHER Ot I10 ESSENTIAL (PRIMARY) HYPERTENSION 02/24/2017 YOLANDA MENDOZA L MAINTENANCE DISPATCHER Ot R07.9 CHEST PAIN, UNSPECIFIED 02/24/2017 BAIRICARDO YOLANDA L MAINTENANCE DISPATCHER Ot R10.30 LOWER ABDOMINAL PAIN, UNSPECIFIED 02/24/2017 JEANNETTE CHELSIE Penaloza MAINTENANCE DISPATCHER Ot N63 UNSPECIFIED LUMP IN BREAST 02/24/2017 JEANNETTE CHELSIE Penaloza MAINTENANCE DISPATCHER Ot R07.89 OTHER CHEST PAIN 02/24/2017 JEANNETTE CHELSIE Penaloza MAINTENANCE DISPATCHER Ot R22.2 LOCALIZED SWELLING, MASS AND LUMP, TRUNK 02/24/2017 JOSAFAT JUAREZ DO Ot N63 UNSPECIFIED LUMP IN BREAST 02/28/2017 KEMAR CARD, LISSETT Stewart Ot K21.9 GASTRO-ESOPHAGEAL REFLUX DISEASE WITHOUT 02/28/2017 KEMAR CARD, LISSETT Stewart Ot Z53.9 PROCEDURE AND TREATMENT NOT CARRIED OUT, 03/02/2017 LISSETT REINOSO MD Ot K21.0 GASTRO-ESOPHAGEAL REFLUX DISEASE WITH ES 03/02/2017 KEMAR CARD, LISSETT Stewart Ot Z01.818 ENCOUNTER FOR OTHER PREPROCEDURAL EXAMIN 03/05/2017 LISSETT REINOSO MD, Ot K21.9 GASTRO-ESOPHAGEAL REFLUX DISEASE WITHOUT 03/05/2017 LISSETT REINOSO MD, Ot Z53.9 PROCEDURE AND TREATMENT NOT CARRIED OUT, 03/17/2017 LISSETT REINOSO MD, Ot K21.9 GASTRO-ESOPHAGEAL REFLUX DISEASE WITHOUT 03/17/2017 LISSETT REINOSO MD, Ot Z53.9 PROCEDURE AND TREATMENT NOT CARRIED OUT, 03/17/2017 LISSETT REINOSO MD, Ot K21.9 GASTRO-ESOPHAGEAL REFLUX DISEASE WITHOUT 03/17/2017 LISSETT REINOSO MD, Ot Z53.9 PROCEDURE AND TREATMENT NOT CARRIED OUT, Procedures Code Description Performed By Performed On 51.23 LAPAROSCOPIC CHOLECYSTECTOMY 10/23/2009 87.53 INTRAOPER CHOLANGIOGRAM 10/23/2009 87910 PSYCH IND W/MED CK 20 07/25/2012 42026 A1C (IN-HOUSE) 49758 PSYCH PHARM MGMT 10/15/2012 Endocrino Kathryn Davis 10/15/2012 43806 A1C (IN-HOUSE) 76744 MICRO ALBUMIN-IN HOUSE 12/14/2012 88632 MRI BRAIN W/O & W/DYE 08/05/2013 PSYCHIATR [facility] 08/05/2013 37536 A1C (IN-HOUSE) 79746 INFLUENZA A & B (IN-HOUSE) 10/23/2013 89344 A1C (IN-HOUSE) 45555 MICRO ALBUMIN-IN HOUSE 02/24/2014 78053 ROUTINE VENIPUNCTURE 03/19/2014 02442 CBC 03/20/2014 [id number] GFR CALC (RESULT ONLY) 03/20/2014 14601 CMP 03/20/2014 28974 A1C (IN-HOUSE) PSYCHIATR JANEL PALACIOS 12/17/2014 Results [...] - 12/19/16 16:25 Lipase 44 U/L 8-78 Influenza virus A and B antigen detection - 01/10/17 11:18 FLU RESULT NEGATIVE FOR INFLUENZA A AND B ANTIGENS BY IA NRG Encounters ACCT No. Visit Date/Time Discharge Status Pt. Type Provider Facility Loc./Unit Complaint [id number] 01/12/2015 08:56:00 01/12/2015 23: 59:59 CLS Outpatient JEANNETTE PARKING METER MECHANICCHELSIE [id number] 12/25/2014 17:27:00 12/25/2014 23: 59:59 CLS Outpatient JEANNETTE PARKING METER MECHANICCHELSIE [id number] 12/17/2014 15:01:00 12/17/2014 23: 59:59 CLS Outpatient JEANNETTE PARKING METER MECHANICCHELSIE Trevino [id number] 08/14/2014 09:32:00 08/14/2014 23: 59:59 CLS Outpatient SUZANNE PARKING METER MECHANICJANEL [id number] 07/18/2014 14:58:00 07/18/2014 23: 59:59 CLS Outpatient JEANNETTE PARKING METER MECHANICCHELSIE [id number] 06/23/2014 00:00:00 06/23/2014 23: 59:59 CLS Outpatient COREA PARKING METER MECHANICCARMEN [id number] 04/02/2014 14:53:00 04/02/2014 23: 59:59 CLS Outpatient COREA PARKING METER MECHANICCARMEN [id number] 03/31/2014 16:10:00 03/31/2014 23: 59:59 CLS Outpatient JEANNETTE PARKING METER MECHANICCHELSIE [id number] 03/19/2014 15:27:00 03/19/2014 23: 59:59 CLS Outpatient KRYSTA PARKING METER MECHANICHALINA Susan [id number] 02/24/2014 15:01:00 02/24/2014 23: 59:59 CLS Outpatient JEANNETTE PARKING METER MECHANICCHELSIE [id number] 10/23/2013 16:30:00 10/23/2013 23: 59:59 CLS Outpatient CHELSIE MACHADO APRN [id number] 08/16/2013 14:03:00 08/16/2013 23: 59:59 CLS Outpatient COREA PARKING METER MECHANICCARMEN [id number] 08/05/2013 11:15:00 08/05/2013 23: 59:59 CLS Outpatient JEANNETTE TAYLORNCHELSIE [id number] 08/05/2013 11:15:00 08/05/2013 23: 59:59 CLS Outpatient JEANNETTE TAYLORNCHELSIE [id number] 05/31/2013 15:39:00 05/31/2013 23: 59:59 CLS Outpatient COREA PARKING METER MECHANICCARMEN [id number] 12/14/2012 11:02:00 12/14/2012 23: 59:59 CLS Outpatient JEANNETTE TAYLORNCHELSIE [id number] 11/26/2012 10:31:00 11/26/2012 23: 59:59 CLS Outpatient CARMEN COREA APRN [id number] 11/16/2012 09:58:00 11/16/2012 23: 59:59 CLS Outpatient [id number] 10/15/2012 11:11:00 10/15/2012 23: 59:59 CLS Outpatient CHELSIE MACHADO APRN [id number] 09/14/2012 11:19:00 09/14/2012 23: 59:59 CLS Outpatient CHELSIE MACHADO APRN [id number] 09/08/2012 11:30:00 09/08/2012 23: 59:59 CLS Outpatient [id number] 08/01/2012 00:00:00 08/01/2012 23: 59:59 CLS Outpatient [id number] 07/25/2012 00:00:00 07/25/2012 23: 59:59 CLS Outpatient SANTOSHMAURICIO SWEET WILBER Uriel [id number] 05/03/2013 00:00:00 Document Registration [id number] 04/11/2013 09:49:00 Document Registration [id number] 02/07/2013 00:00:00 Document Registration [id number] 02/05/2013 14:59:00 Document Registration [id number] 01/07/2013 09:20:00 Document Registration [id number] 01/02/2013 00:00:00 Document Registration
--- NOTE | 2017-03-20 23:35 | OPERATIVE REPORT ---
DATE OF SERVICE: 03/20/2017 PROCEDURE: Upper GI endoscopy with antral biopsy. SURGEON: Lissett Reinoso MD INDICATION FOR PROCEDURE: This gentleman came in for endoscopic evaluation of symptoms of reflux disease. Informed consent was obtained after reviewing the procedure in detail. DESCRIPTION OF PROCEDURE: He was placed in left lateral decubitus position and his vital signs were monitored. Conscious sedation was achieved using Versed and fentanyl. The flexible gastroscope was then introduced down the esophagus, past the stomach, into the proximal duodenum. FINDINGS: Esophagus: Quite tortuous with a hiatal hernia. Stomach: Multiple shallow erosions were found at the distal end. Biopsy for H. pylori was obtained. Duodenum: Changes of duodenitis along the first part. He tolerated the procedure well and was taken back to the nursing area in a stable condition. IMPRESSION: Symptoms of reflux disease. Uncomplicated hiatal hernia and gastric erosions. Helicobacter status pending. Job ID: [id number] DocumentID: [id number] Dictated Date: 03/20/2017 12:51:44 Case Liner Date: 03/20/2017 23:34:50 Dictated By: LISSETT REINOSO MD MTDD
== END 2017-03-20 14:00 | disposition home or self-care (01) ==
LOC: ENDO 10:40
PROVIDERS: ATTEND Surgery
DX: K25.9 Gastric ulcer, unspecified as acute or chronic, without hemorrhage or perforation (principal); K44.9 Diaphragmatic hernia without obstruction or gangrene; K29.80 Duodenitis without bleeding; I10 Essential (primary) hypertension; E78.5 Hyperlipidemia, unspecified; E11.9 Type 2 diabetes mellitus without complications; F32.9 Major depressive disorder, single episode, unspecified

== ENCOUNTER → 2019-07-01 | Outpatient (CLI) | payer MEDICARE, MEDICAID ==
[~2019-07-01] MED LIST changes: -DULO60CA58 PO; +DULO60CA59 PO; +METF-397 PO; +METF-399 PO; +METF-478 PO; -METF1000 PO; -METF500T4 PO; +PANT40TA2 PO
[2019-07-01 09:56] LABS: HEMOGLOBIN 14.3 G/DL (13.3-17.7); MEAN PLATELET VOLUME 9.3 FL (7.4-10.4); RED CELL DISTRIBUTION WIDTH 13.3 % (10.0-14.5); WHITE BLOOD COUNT 5.8 10^3/uL (4.3-11.0)
== END ==
LOC: LAB 09:35
PROVIDERS: ATTEND Physician Assistant
DX: E29.1 Testicular hypofunction (principal)
CPT/HCPCS: 36415; 84402; 84403; 85027

== ENCOUNTER 2021-03-02 21:49 | Inpatient (IN) | payer MEDICARE, MEDICAID ==
[~2021-03-02] VITALS: Ht 185.4 cm; Wt 127.5 kg
[~2021-03-02 21:49] MED LIST changes: -TRAM50TA2 PO; +TRM50T PO
[2021-03-02 22:25] LABS: BASOPHILS # (AUTO) 0.1 10^3/uL (0.0-0.1); BASOPHILS % (AUTO) 1 % (0-10); EOSINOPHILS # (AUTO) 0.5 10^3/uL (0.0-0.3); EOSINOPHILS % (AUTO) 6 % (0-10); HEMATOCRIT 43 % (40-54); HEMOGLOBIN 15.5 g/dL (13.3-17.7); LYMPHOCYTES # (AUTO) 2.6 10^3/uL (1.0-4.0); LYMPHOCYTES % (AUTO) 35 % (12-44); MEAN CORPUSCULAR HEMOGLOBIN 29 pg (25-34); MEAN CORPUSCULAR HGB CONC 36 g/dL (32-36); MEAN CORPUSCULAR VOLUME 82 fL (80-99); MEAN PLATELET VOLUME 9.3 fL (9.0-12.2); MONOCYTES # (AUTO) 0.5 10^3/uL (0.0-1.0); MONOCYTES % (AUTO) 7 % (0-12); NEUTROPHILS # (AUTO) 3.8 10^3/uL (1.8-7.8); NEUTROPHILS % (AUTO) 51 % (42-75); PLATELET COUNT 284 10^3/uL (130-400); WHITE BLOOD COUNT 7.4 10^3/uL (4.3-11.0)
[2021-03-02 22:35] LABS: ALBUMIN 4.2 GM/DL (3.2-4.5)
[2021-03-02 22:36] LABS: CHLORIDE 97 MMOL/L (98-107); POTASSIUM 3.9 MMOL/L (3.6-5.0); SODIUM 136 MMOL/L (135-145)
[2021-03-02 22:37] LABS: CALCIUM 9.2 MG/DL (8.5-10.1)
[2021-03-02 22:38] LABS: TOTAL PROTEIN 7.1 GM/DL (6.4-8.2)
[2021-03-02 22:39] LABS: CARBON DIOXIDE 23 MMOL/L (21-32)
[2021-03-02 22:40] LABS: BILIRUBIN,TOTAL 0.7 MG/DL (0.1-1.0)
[2021-03-02 22:41] LABS: ALKALINE PHOSPHATASE 73 U/L (40-136)
[2021-03-02 22:42] LABS: CREATININE SERUM 1.12 MG/DL (0.60-1.30); GFR ESTIMATED > 60
[2021-03-02 22:43] LABS: BUN/CREATININE RATIO 4; GLUCOSE 401 MG/DL (70-105)
[2021-03-02 22:44] LABS: ALANINE AMINOTRANSFERASE 27 U/L (0-55)
[2021-03-02 22:50] LABS: FIBRIN DEGRADATION PRODUCTS 0.05 UG/ML (0.00-0.49); PROTHROMBIN TIME PATIENT 13.2 SEC (12.2-14.7)
[2021-03-02 23:02] LABS: BILIRUBIN,URINE NEGATIVE (NEGATIVE); CLARITY,URINE CLEAR; COLOR,URINE YELLOW; GLUCOSE, URINE (UA) 3+ (NEGATIVE); KETONES,URINE TRACE (NEGATIVE); LEUKOCYTE ESTERASE ,URINE NEGATIVE (NEGATIVE); NITRITE,URINE NEGATIVE (NEGATIVE); PROTEIN,URINE NEGATIVE (NEGATIVE)
[2021-03-02 23:09] LABS: BACTERIA,URINE NEGATIVE /HPF; SQUAMOUS EPITHELIAL CELL,UR 0-2 /HPF
[2021-03-03] VITALS (13 sets, daily range): BP systolic 108–183; BP diastolic 62–109
[2021-03-03] MEDS ORDERED: NS IV 1000 ML 1,000 ML IV SCH
[2021-03-03] MEDS ORDERED: inSUlin (REGULAR) HUMAN 1 UNIT/0.01 ML (CHARGE PER UNIT) SC ONE
--- NOTE | 2021-03-03 00:42 | ED Neurological Problem ---
General Chief Complaint: Neurological Problems Stated Complaint: "TROUBLE REMEMBERING WORDS" Nursing Triage Note: PT TO ED WITH C/O EXPRESSIVE APHASIA. PT FIRST REPORTS SYMPTOMS BEGAN TWO DAYS AGO. PT THEN REPORTS SYMPTOMS MAY HAVE STARTED EARLIER. PT HAVING DIFFICULTY FINDING WORDS TO DESCRIBE SYMPTOMS. PT REPORTS COUGH AND HEADACHE. PT DENIES VISION CHANGES. FRIEND REPORTS LAST KNOWN WELL TIME WAS MONDAY. PT HAS HAND TREMOR THAT PT REPORTS IS NOT NORMAL FOR PT. Nursing Sepsis Screen: No Definite Risk Source: patient, family Exam Limitations: no limitations History of Present Illness Date Seen by Provider: Mar 02, 2021 Time Seen by Provider: 21:51 Initial Comments 50-year-old gentleman presents to emergency room with primary complaint of expressive aphasia. He is having significant difficulty with word finding. Symptoms have been present for 2 days. According to his friend and the last time he was known to be well was February 28. Patient has a feeling of numbness or weakness in the lower extremities bilaterally but has no focal extremity weakness. He is ambulatory. Today he was on a Zoom meeting with yazidi friends when he was unable to read scripture. They took action and brought him to the emergency room. Patient has type 2 diabetes and is insulin-dependent. He reports high blood sugars. Allergies and Home Medications Allergies Coded Allergies: codeine (Unverified Allergy, Mild, 10/22/09) naproxen (Unverified Allergy, Mild, 10/22/09) bacitracin (Verified Allergy, Unknown, 12/01/15) bupropion (Verified Allergy, Unknown, 12/01/15) cephalexin (Verified Allergy, Unknown, 12/01/15) corn (Verified Allergy, Unknown, 12/01/15) doxepin (Verified Allergy, Unknown, 12/01/15) gluten (Verified Allergy, Unknown, 12/01/15) lurasidone (Verified Allergy, Unknown, 12/01/15) neomycin (Verified Allergy, Unknown, 12/01/15) paroxetine (Verified Allergy, Unknown, 12/01/15) polymyxin B (Verified Allergy, Unknown, 12/01/15) sertraline (Verified Allergy, Unknown, 12/01/15) ziprasidone (Verified Allergy, Unknown, 12/01/15) latex (Unverified Adverse Reaction, Mild, RASH, 01/19/11) Home Medications Duloxetine HCl 60 Mg Capsule.dr, 60 MG PO BID, (Reported) Exenatide Microspheres 2 Mg/0.65 Ml Pen.injctr, 20 MG SQ WEEKLY, (Reported) Gabapentin 100 Mg Capsule, 100 MG PO TID, (Reported) Hydroxyzine HCl 50 Mg Tablet, 50 MG PO PRN, (Reported) Metformin HCl 500 Mg Tab.er.24, 500 MG PO BID, (Reported) Pantoprazole Sodium 40 Mg Tablet.dr, 40 MG PO DAILY Prescribed by: LISSETT REINOSO on 03/20/17 1253 Propranolol HCl 40 Mg Tablet, 40 MG PO BID, (Reported) Patient Home Medication List Home Medication List Reviewed: Yes Review of Systems Review of Systems Constitutional: no symptoms reported Eyes: No Symptoms Reported Ears, Nose, Mouth, Throat: no symptoms reported Respiratory: no symptoms reported Cardiovascular: no symptoms reported Gastrointestinal: no symptoms reported Genitourinary: no symptoms reported Musculoskeletal: no symptoms reported Skin: no symptoms reported Psychiatric/Neurological: See HPI Endocrine: See HPI Hematologic/Lymphatic: No Symptoms Reported Past Qwalgfx-Pmxozr-Osqbgs Hx Past Med/Social Hx: Reviewed Nursing Past Med/Soc Hx Patient Social History Alcohol Use: Rarely Uses Smoking Status: Former Smoker Type Used: Cigarettes Former Smoker, Quit: Mar 22, 1998 2nd Hand Smoke Exposure: Yes Recent Infectious Disease Expo: No Recent Hopitalizations: No Immunizations Up To Date Tetanus Booster (TDap): Unknown Seasonal Allergies Seasonal Allergies: Yes Past Medical History Surgeries: Yes (CARDIAC CATH, NO INTERVENTION, LIPOMA FROM CHEST) Gallbladder, Vasectomy Respiratory: No Chronic Bronchitis Cardiac: Yes High Cholesterol, Hypertension Neurological: Yes Neuropathy Reproductive Disorders: No Sexually Transmitted Disease: No HIV/AIDS: No Gastrointestinal: Yes (POSS CELIAC DISEASE) Gastroesophageal Reflux, Chronic Diarrhea, Irritable Bowel Musculoskeletal: Yes Arthritis Endocrine: Yes Diabetes, Non-Insulin dep Loss of Vision: Bilateral Hearing Impairment: Denies Cancer: No Psychosocial: Yes Anxiety, PTSD, Bipolar, Depression Integumentary: No Blood Disorders: No Adverse Reaction/Blood Tranf: No (N/A) Family Medical History Other Conditions/Hx Physical Exam Vital Signs Vital Signs - First Documented 03/02/21 21:58 Temp 35.3 Pulse 91 Resp 20 B/P (MAP) 188/98 (128) Pulse Ox 99 O2 Delivery Room Air Capillary Refill : Less Than 3 Seconds Height, Weight, BMI Height: 6'1.00" Weight: 285lbs. 9.0oz. 129.407930tf; 39.00 BMI Method:Stated General Appearance: WD/WN, no apparent distress HEENT: PERRL/EOMI, normal ENT inspection Neck: normal inspection Respiratory: lungs clear, normal breath sounds, no respiratory distress, no accessory muscle use Cardiovascular: regular rate, rhythm, no edema, no murmur Gastrointestinal: normal bowel sounds, non tender, soft Extremities: normal inspection, no pedal edema Neurologic/Psychiatric: no motor/sensory deficits, alert, normal mood/affect, oriented x 3, aphasia Crainal Nerves: normal hearing, PERRL, abnormal speech Coordination/Gait: normal finger to nose (Normal [id number]) Motor/Sensory: no motor deficit, no sensory deficit, no pronator drift Skin: normal color, warm/dry Stroke NIH Stroke Scale Assessment Select: Initial Level of Consciousness: 0=Alert (0), Level of Consciousness- Questions: 0=Answers both month/age (0), LOC Commands: 0=Performs both tasks (0), Gaze: Normal (0), Visual [place]: 0=No visual loss (0), Facial Movement (Facial Paresis): 0=Normal symmetrical mnt (0), Motor Function-Arms Right: 0=No drift (0), Motor Function-Arms Left: 0=No drift (0), Motor Function-Legs Right: 0=No drift (0), Motor Function-Legs Left: 0=No drift (0), Limb Ataxia: 0=Absent (0), Sensory: 0=Normal:no loss (0), Best Language: 1=Mild to moderat aphasia (1), Dysarthria: 0=Normal (0), Extinction & Inattention: 1=Visual,tactile,auditory Difficulty identifying right and left and body parts when touched. Sensation intact. (1), Total: 2 Progress/Results/Core Measures Results/Orders Lab Results Laboratory Tests Test 03/02/21 22:11 03/02/21 22:15 03/02/21 22:25 03/02/21 22:56 Range/Units Glucometer 386 H 70-110 MG/DL White Blood Count 7.4 4.3-11.0 10^3/uL Red Blood Count 5.29 4.30-5.52 10^6/uL Hemoglobin 15.5 13.3-17.7 g/dL Hematocrit 43 40-54 % Mean Corpuscular Volume 82 80-99 fL Mean Corpuscular Hemoglobin 29 25-34 pg Mean Corpuscular Hemoglobin Concent 36 32-36 g/dL Red Cell Distribution Width 12.7 10.0-14.5 % Platelet Count 284 130-400 10^3/uL Mean Platelet Volume 9.3 9.0-12.2 fL Immature Granulocyte % (Auto) 1 % Neutrophils (%) (Auto) 51 42-75 % Lymphocytes (%) (Auto) 35 12-44 % Monocytes (%) (Auto) 7 0-12 % Eosinophils (%) (Auto) 6 0-10 % Basophils (%) (Auto) 1 0-10 % Neutrophils # (Auto) 3.8 1.8-7.8 10^3/uL Lymphocytes # (Auto) 2.6 1.0-4.0 10^3/uL Monocytes # (Auto) 0.5 0.0-1.0 10^3/uL Eosinophils # (Auto) 0.5 H 0.0-0.3 10^3/uL Basophils # (Auto) 0.1 0.0-0.1 10^3/uL Immature Granulocyte # (Auto) 0.0 0.0-0.1 10^3/uL Sodium Level 136 135-145 MMOL/L Potassium Level 3.9 3.6-5.0 MMOL/L Chloride Level 97 L 98-107 MMOL/L Carbon Dioxide Level 23 21-32 MMOL/L Anion Gap 16 H 5-14 MMOL/L Blood Urea Nitrogen 5 L 7-18 MG/DL Creatinine 1.12 0.60-1.30 MG/DL Estimat Glomerular Filtration Rate > 60 BUN/Creatinine Ratio 4 Glucose Level 401 *H 70-105 MG/DL Calcium Level 9.2 8.5-10.1 MG/DL Corrected Calcium 9.0 8.5-10.1 MG/DL Total Bilirubin 0.7 0.1-1.0 MG/DL Aspartate Amino Transf (AST/SGOT) 17 5-34 U/L Alanine Aminotransferase (ALT/SGPT) 27 0-55 U/L Alkaline Phosphatase 73 40-136 U/L Troponin I < 0.028 <0.028 NG/ML C-Reactive Protein High Sensitivity 0.43 0.00-0.50 MG/DL Total Protein 7.1 6.4-8.2 GM/DL Albumin 4.2 3.2-4.5 GM/DL Prothrombin Time 13.2 12.2-14.7 SEC INR Comment 1.0 0.8-1.4 Activated Partial Thromboplast Time 26 24-35 SEC D-Dimer 0.05 0.00-0.49 UG/ML Urine Color YELLOW Urine Clarity CLEAR Urine pH 6.0 5-9 Urine Specific [place] 1.020 1.016-1.022 Urine Protein NEGATIVE NEGATIVE Urine Glucose (UA) 3+ H NEGATIVE Urine Ketones TRACE H NEGATIVE Urine Nitrite NEGATIVE NEGATIVE Urine Bilirubin NEGATIVE NEGATIVE Urine Urobilinogen 0.2 < = 1.0 MG/DL Urine Leukocyte Esterase NEGATIVE NEGATIVE Urine RBC (Auto) NEGATIVE NEGATIVE Urine RBC NONE /HPF Urine WBC NONE /HPF Urine Squamous Epithelial Cells 0-2 /HPF Urine Renal Epithelial Cells NONE /HPF Urine Crystals NONE /LPF Urine Bacteria NEGATIVE /HPF Urine Casts NONE /LPF Urine Mucus NEGATIVE /LPF Urine Culture Indicated NO My Orders Orders - ANALY FRANCO MD Cbc With Automated Diff (03/02/21 22:02) Protime With Inr (03/02/21 22:02) Partial Thromboplastin Time (03/02/21 22:02) Comprehensive Metabolic Panel (03/02/21 22:02) Fibrin Degradation Products (03/02/21 22:02) Troponin I (03/02/21 22:02) Ua Culture If Indicated (03/02/21 22:02) Chest 1 View, Ap/Pa Only (03/02/21 22:02) Ekg Tracing (03/02/21 22:02) Nothing By Mouth (03/03/21 Breakfast) Accucheck Stat ONCE (03/02/21 22:02) Ed Iv/Invasive Line Start (03/02/21 22:02) Ed Iv/Invasive Line Start (03/02/21 22:02) Vital Signs Stroke Patient Q15M (03/02/21 22:02) Ct Head Wo-R/O Stroke (03/02/21 22:02) O2 (03/02/21 22:02) Intake & Output 06,14,22 (03/02/21 22:02) Monitor-Rhythm Ecg Trace Only (03/02/21 22:02) Dysphagia Screening Tool (03/02/21 22:02) Post Thrombolytic Adminstratio (03/02/21 22:02) Lipid Panel (03/03/21 06:00) Hs C Reactive Protein (03/02/21 22:34) Insulin (Regular) Human (Novolin R (Per (03/03/21 00:00) Ns Iv 1000 Ml (Sodium Chloride 0.9%) (03/03/21 00:00) Ct Angio Head/Neck (03/03/21 00:00) Medications Given in ED Current Medications Medications Dose Ordered Sig/Syl Route Start Time Stop Time Status Last Admin Dose Admin Insulin Human Regular 5 unit ONCE ONCE SC 03/03/21 00:00 03/03/21 00:01 DC 03/03/21 00:39 5 UNIT Vital Signs/I&O 03/02/21 03/02/21 21:58 22:15 Temp 35.3 36.6 Pulse 91 91 Resp 20 20 B/P (MAP) 188/98 (128) 188/98 (128) Pulse Ox 99 99 O2 Delivery Room Air Room Air 2 Blood Pressure Mean: 128 FSBG Bedside Testing Finger Stick Blood Glucose: 386 Blood Glucose Action Taken: JOAN PRESENT Progress Progress Note : Progress Note Stroke work-up was pursued. Patient was well past the therapeutic window for thrombolytics. Case was discussed with Dr. Fofana, stroke neurologist at [facility]. He recommended admission for further work-up to include angiography and MRI. CT angio of the head and neck was obtained in the ER. Stenosis of M1 was noted. I discussed this again with Dr. Fofana. No emergent interventions were recommended and transfer was likewise not recommended. Patient passed his dysphagia screen. He was given his evening medications that he brought with him. He was also given aspirin and Plavix. His blood sugar was 401. He was treated with a liter of IV fluid and 10 units of insulin. Initial ECG Impression Date: Mar 02, 2021 Initial ECG Impression Time: 22:13 Initial ECG Rate: 87 Initial ECG Rhythm: Normal Sinus Initial ECG Intervals: Normal Initial ECG Impression: Normal Comment Normal sinus rhythm with no ST elevation or depression. No abnormal intervals or axis deviation. Diagnostic Imaging Diagonstic Imaging: CT Plain Films/CT/US/NM/MRI: head Comments CT head viewed by me. [facility] report reviewed. Encephalomalacia on the left consistent with old stroke. No acute findings. Diagonstic Imaging: Xray Plain Films/CT/US/NM/MRI: chest Comments Chest x-ray viewed by me. Report not yet available. No acute findings appreciated. Diagonstic Imaging: CT Plain Films/CT/US/NM/MRI: other (Angiogram head and neck) Comments CT angiogram head and neck reviewed by me and stat rad report reviewed. There was focal, high-grade left M1 stenosis. This may be chronic as there is infarct in the left deep white matter. There is no large vessel occlusion. There was mild left ICA stenosis less than 30% with soft plaque. CT Read Date: Mar 02, 2021 CT Read Time: 23:00 Departure Communication (Admissions) Time/Spoke to Admitting Phy: 00:30 Dr. Ervin Impression Primary Impression: Expressive aphasia Additional Impressions: Hypertension Qualified Codes: I10 - Essential (primary) hypertension Hyperglycemia Disposition: ADMITTED INPATIENT Condition: Improved Admissions Decision to Admit Reason: Admit from ER (General) Decision to Admit/Date: Mar 02, 2021 Time/Decision to Admit Time: 22:00 Departure-Patient Inst. Referrals: [facility] (PCP) Primary Care Physician YONY SHEARER (Family) Primary Care Physician ANALY FRANCO MD Mar 03, 2021 00:42
[2021-03-03] MEDS ORDERED: ASPIRIN 325 MG (5 GR) TABLET PO ONE (00:45)
[2021-03-03] MEDS ORDERED: CLOPIDOGREL 75 MG (PLAVIX) TABLET PO ONE (00:45)
[2021-03-03] MEDS ORDERED: CATHETER FLUSH 10 ML SYR IV PRN (00:45)
[2021-03-03] MEDS ORDERED: IOHEXOL 350 MG/ML 100 ML (OMNIPAQUE 350) VIAL IV ONE (00:45)
[2021-03-03] MEDS ORDERED: NS 100 ML (IVPB) BAG IV ONE (00:45)
[2021-03-03] MEDS ORDERED: HOLD METFORMIN - RECEIVED CONTRAST 20 ML VIAL IV SCH (00:45)
[2021-03-03] MEDS ORDERED: MILK OF MAGNESIA 400 MG/5 ML 30 ML UDC PO PRN (02:15)
[2021-03-03] MEDS ORDERED: ONDANSETRON 4 MG/2 ML (SDV) Z0FRAN IVP PRN (02:15)
[2021-03-03] MEDS: NS IV 1000 ML 1,000 ML IV SCH ×3 (02:33→23:03)
[2021-03-03 03:42] LABS: CHLORIDE 104 MMOL/L (98-107); POTASSIUM 3.5 MMOL/L (3.6-5.0); SODIUM 140 MMOL/L (135-145)
[2021-03-03 03:43] LABS: CALCIUM 8.9 MG/DL (8.5-10.1)
[2021-03-03 03:44] LABS: GLUCOSE 95 MG/DL (70-105); TRIGLYCERIDES 370 MG/DL (<150); VLDL CHOLESTEROL 74 MG/DL (5-40)
[2021-03-03 03:45] LABS: CARBON DIOXIDE 23 MMOL/L (21-32)
[2021-03-03 03:47] LABS: CREATININE SERUM 0.81 MG/DL (0.60-1.30); GFR ESTIMATED > 60
[2021-03-03 03:49] LABS: BUN/CREATININE RATIO 6; CHOLESTEROL 151 MG/DL (< 200)
[2021-03-03 03:50] LABS: HDL CHOLESTEROL 26 MG/DL (40-60)
[2021-03-03] MEDS: inSUlin ASPART (NovoLOG) 1 UNIT/0.01 ML (CHARGE PER UNIT) SC SCH ×4 (06:40→21:20)
--- NOTE | 2021-03-03 07:01 | Diagnostic Imaging Report ---
INDICATION: Expressive aphasia. Comparison made with prior examination from 01/06/2016. FINDINGS: The heart size, mediastinal configuration, and pulmonary vascularity are within normal limits. There is no pleural effusion, pneumothorax, or pneumonia. The osseous structures are unremarkable. IMPRESSION: No acute cardiopulmonary abnormality. Dictated by: Dictated on workstation # [id number]
--- NOTE | 2021-03-03 07:58 | Diagnostic Imaging Report ---
PROCEDURE: CT head wo r/o stroke. TECHNIQUE: Multiple contiguous axial images were obtained through the brain without the use of intravenous contrast. Auto Exposure Controls were utilized during the CT exam to meet ALARA standards for radiation dose reduction. INDICATION: Altered mental status There is no mass, shift of the midline or hemorrhage to suggest an acute intracranial abnormality. There is a fairly well-defined 10 x 25 mm area of diminished density near the nava-white junction of the left parietal lobe at the level of the lateral ventricles. This finding was not present on the prior CT head exam of 07/16/2009. This area of diminished density could be related to encephalomalacia from a long-standing infarct. The possibility that this is secondary to brain edema from a subacute infarct should also be considered. If further imaging is desired, then either MRI or CT of the head and neck would be recommended. The ventricles are not abnormally dilated and stable in size when compared to the prior exam. The bone windows show no evidence for fracture or for destructive lesion. The orbits are symmetrical and within normal limits. The sinuses are generally clear. IMPRESSION: 1. There is no mass or acute hemorrhage identified. 2. The area of diminished density in the periventricular white matter of the left parietal lobe is of uncertain etiology. Considerations and recommendations as above. 3. I agree with the [facility] report although the [facility] report suggested the area of diminished density in left parietal lobe was chronic in nature. I am concerned it could be subacute. Recommendations as above.. Dictated by: Dictated on workstation # [id number]
--- NOTE | 2021-03-03 08:19 | Diagnostic Imaging Report ---
PROCEDURE: CT angiography of the head and CT angiography of the neck with and without contrast. TECHNIQUE: Contiguous noncontrast images were obtained from the skull base through the vertex. After intravenous contrast administration, helical CT angiography of the neck was performed. Source data was reformatted into 3D MIP projections. Delayed post contrast acquisition was also obtained. Auto Exposure Controls were utilized during the CT exam to meet ALARA standards for radiation dose reduction. INDICATION: Altered mental status. The CT head exam performed earlier today failed to show any sign of an acute intracranial abnormality. There was an area of diminished density in the periventricular white matter of left parietal lobe which appear to represent an infarct. Whether this is chronic in nature or subacute was unclear. On this study, there does appear to be focal high-grade stenosis of the proximal left M1 segment. There is no other significant stenosis identified and there is no sign of a large vessel occlusion. There is no aneurysm of the [place] either. The images through the neck failed to show any sign of a hemodynamically significant stenosis in either carotid system. Both vertebral arteries were opacified and the vertebral arteries appear codominant. There is no mass or adenopathy involving the neck. The thyroid gland is generally unremarkable. The lung apices are generally clear. However, the central pulmonary vascularity is prominent and the heart seems enlarged. The chest exam performed in conjunction with the study, however failed to show any sign of an acute abnormality. IMPRESSION: 1. There is a focal high-grade stenosis of the proximal left M1 segment. There is no other significant stenosis identified and there is no sign of a large vessel occlusion. There is no aneurysm of the [place] either. However, if clinical concern regarding an acute or subacute abnormality persists, then MRI would be recommended for further study. 2. There is no evidence for hemodynamically significant stenosis of either carotid system. 3. The vertebral arteries were opacified and codominant 4. I agree with the [facility] interpretation of this exam.. Dictated by: Dictated on workstation # [id number]
[2021-03-03] MEDS ORDERED: ASPIRIN 81 MG CHEW (CHILDREN'S ASA) ONE (08:26)
[2021-03-03] MEDS: CLOPIDOGREL 75 MG (PLAVIX) TABLET PO SCH (08:39)
[2021-03-03] MEDS: ASPIRIN E.C. 325 MG (ECOTRIN) TABLET PO SCH (08:45)
--- NOTE | 2021-03-03 08:47 | Diagnostic Imaging Report ---
PROCEDURE: MR imaging of the brain without contrast. TECHNIQUE: Multiplanar, multisequence MR imaging of the brain was performed without contrast. INDICATION: Altered mental status. FINDINGS: The previous MRI brain exam performed on 08/08/2013 failed to show any sign of an acute intracranial abnormality. The CT head exam of 03/02/2021 did note an area of diminished density in the periventricular white matter of the left parietal lobe at the level of the lateral ventricles. It was not certain whether this was related to a chronic infarct or a subacute infarct. The CTA head and neck exam subsequently performed did note a focal high-grade stenosis of the proximal M1 segment on the left. There was no large vessel occlusion identified, however. On the diffusion series of this exam, there is increased signal throughout the area of diminished density in the left parietal lobe seen on the CT exam. There is a corresponding area of diminished signal on the apparent diffusion coefficient series and consequently I do suspect this finding is related to a probable subacute nonhemorrhagic infarct. There is also a small 7 mm area of increased signal in the medial aspect of the left temporal lobe. This too is most likely due to a small subacute nonhemorrhagic infarct. No other acute abnormality is identified. There is no mass, shift of the midline, or hemorrhage. The ventricles are not abnormally dilated. The sella is not enlarged and the expected carotid flow voids are evident bilaterally. The orbits are symmetrical and within normal limits. The sinuses are generally clear. The 7th and 8th nerve complexes are unremarkable. IMPRESSION: 1. The area of diminished density in the periventricular white matter of the left parietal lobe seen on the recent CT head exam does show abnormal signal on the diffusion series. Most likely, this finding is related to a subacute nonhemorrhagic infarct. There is also a tiny subacute nonhemorrhagic infarct along the medial aspect of the left temporal lobe. 2. There is no other acute intracranial abnormality noted. 3. There is no mass or hemorrhage identified. 4. These results were called to Dr. Natali Ervin. CRITICAL FINDING Dictated by: Dictated on workstation # [id number]
[2021-03-03] MEDS ORDERED: ASPIRIN 300 MG (5 GR) SUPPOSITORY PR SCH (09:00)
--- NOTE | 2021-03-03 10:33 | ST Cognitive Linguistic Eval ---
Speech Evaluation-General Medical Diagnosis CVA Onset Date: Mar 02, 2021 Therapy Diagnosis Therapy Diagnosis: Cognitive-communication, Expressive Aphasia Precautions Precautions/Isolations: Fall Prevention, Standard Precautions Referral Referring Physician: Dr. Ervin Medical History Pertinent Medical History: DM, HTN Reviewed History: Yes Social History Current Living Status: Alone Speech PLF-Current Status Prior Level of Function Patient lives home alone where he is independent for his daily needs. Subjective Patient was pleasant and cooperative with the cognitive/speech assessment. Language Eval: Auditory Comprehends Simple Yes/No Ques: Functional Indent/Objects Multiple [place]: Functional Ident/Pics in Multiple [place]: Functional Follows 1-Step Commands: Functional Follows Complex Directions: Functional Follows General Conversations: Mild Language Eval: Verbal Language Completes Spontaneous Greeting: Functional Produces Auto, Serial Info: Functional Imitates Simple Words/Phrases: Functional Word Finding: Moderate Requests Basic Needs: Mild States Basic Personal Info: Mild Expresses Complex Ideas: Moderate Language Evaluation: Reading Comprehends Single Nouns: Functional Follows Simple Written Direct: Functional Objective Cognitive Domain Attention: WNL Memory: WNL Problem Solving: Functional Executive Functions: WNL Visuospatial Skills: WNL Composite Severity Rating: WNL Objective Formal/Standardized Tests [facility] Mental Status (UMS), informal speech tasks, chart review, patient interview Results Mild to moderate deficit with expressive language, automatic speech is intact Oral Motor/Speech Production Within Normal Limits Impression Patient is a pleasant 50 y/o male who was admitted to the ICU due to CVA. Patient was evaluated at bedside per physician order. The patient completed a series of questions, subtests of the UMS and general personal information with 75% speech productivity. The patient has moderate expressive aphasia with confrontational questions. Automatic speech is intact. He does demonstrate the ability to read which will be beneficial for language production. The patient will receive skilled ST with focus on effective communication via spoken and pictures. Speech Short Term Goals Short Term Goals Short Term Goals 1) Patient will complete fill in the blank sentences with and without written cues at 90% or greater. 2) Patient will complete confrontational naming exercises with actual objects, pictures and descriptors at 90% or greater. Speech Bale Breaker Operator Goals Penitentiary Goals Patient will demo effective communication skills for daily needs. Speech-Plan Patient/Family Goals Patient/Family Goals: Patient plans on returning to his home where he lives alone. Treatment Plan Speech Therapy Treatment Plan: Continue Plan of Care Treatment Duration: Mar 12, 2021 Frequency: 4 times per week (Patient will receive skilled ST 4-5x per week) Estimated Hrs Per Day: .25 hour per day Rehab Potential: Good Barriers to Learning: Patient's recent CVA, other medical diagnosis, expressive aphasia Pt/Family Agrees to Plan: Yes Safety Risks/Education Teaching Recipient: Patient Teaching Methods: Discussion Response to Teaching: Verbalize Understanding Education Topics Provided: Safety within his room, alternate means of communication Time Speech Therapy Time In: 09:30 Speech Therapy Time Out: 09:50 Total Billed Time: 20 Billed Treatment Time 1, DODIE VACA [address] ST Mar 03, 2021 10:33
[2021-03-03] MEDS ORDERED: CARI1.5C PO (11:56)
[2021-03-03] MEDS ORDERED: FURO20TA4 PO (11:56)
[2021-03-03] MEDS ORDERED: RT-ALBUINH IH (11:56)
[2021-03-03] MEDS ORDERED: LISI20TA26 PO (11:56)
[2021-03-03] MEDS ORDERED: GABA800T10 PO (11:56)
[2021-03-03] MEDS ORDERED: METF-865 PO (11:56)
[2021-03-03] MEDS ORDERED: MULT-1136 PO (11:56)
[2021-03-03] MEDS ORDERED: INSU100I29 SC (11:56)
[2021-03-03] MEDS ORDERED: PREVAGEN PO (11:56)
[2021-03-03] MEDS ORDERED: ACET-2267 PO (11:56)
[2021-03-03] MEDS ORDERED: INSU100I21 SC (11:56)
[2021-03-03] MEDS ORDERED: CYCL10TA9 PO (11:56)
[2021-03-03] MEDS ORDERED: TEST200V21 IM (11:56)
[2021-03-03] MEDS ORDERED: GLIP10TA13 PO (11:56)
[2021-03-03] MEDS ORDERED: GEMF600T88 PO (11:58)
--- NOTE | 2021-03-03 15:58 | History & Physical ---
HPI History of Present Illness: 50 yo M that was sent to ER by his friends when he was on a zoom meeting and he was unable to read with the group and was having a hard time finding words. States that these symptoms have been present for the last 2 days. No facial muscle changes or extremity weakness. [facility] Stroke team was called with CT scan results and patient did not meet requirements for tPA. MRI was done this AM and was consistent with subacute ischemic stroke. Patient denies any previous strokes or TIAs. Denies any previous heart complications or interventions. No recent medication changes. He is on 3 blood pressure medications and states that he takes his medications daily. He does not monitor his blood pressure. States that his grandfather had multiple strokes. Source: patient, RN/MD Exam Limitations: no limitations Date seen by provider: Mar 03, 2021 Time Seen by Provider: 08:35 Attending Physician Teri Ervin MD PCP [place] [place] Consult Date of Admission Mar 03, 2021 at 00:37 Home Medications Home Medications Reviewed patient Home Medication Reconciliation performed by pharmacy medication reconciliations electro mechanical technician and/or nursing. Patients Allergies have been reviewed. Allergies Coded Allergies: codeine (Unverified Allergy, Mild, 10/22/09) naproxen (Unverified Allergy, Mild, 10/22/09) bacitracin (Verified Allergy, Unknown, 12/01/15) bupropion (Verified Allergy, Unknown, 12/01/15) cephalexin (Verified Allergy, Unknown, 12/01/15) corn (Verified Allergy, Unknown, 12/01/15) doxepin (Verified Allergy, Unknown, 12/01/15) gluten (Verified Allergy, Unknown, 12/01/15) lurasidone (Verified Allergy, Unknown, 12/01/15) neomycin (Verified Allergy, Unknown, 12/01/15) paroxetine (Verified Allergy, Unknown, 12/01/15) polymyxin B (Verified Allergy, Unknown, 12/01/15) sertraline (Verified Allergy, Unknown, 12/01/15) ziprasidone (Verified Allergy, Unknown, 12/01/15) latex (Unverified Adverse Reaction, Mild, RASH, 01/19/11) [id number] Hx Patient Social History Smoking Status: Former Smoker Former smoker/When Quit: Sep 30, 1997 2nd Hand Smoke Exposure: Yes Recent Hopitalizations: No Alcohol Use?: Yes Have you traveled recently?: No Immunizations Up To Date Tetanus Booster (TDap): Unknown Date of Influenza Vaccine: Jun 25, 2020 Past Medical History HTN IDDM HLD Family Medical History Significant Family History: Stroke (paternal grandfather), Other Conditions/Hx Review of Systems ([facility]) Constitutional: no symptoms reported; No chills, No fever, No malaise, No weakness EENTM: No hearing loss, No blurred vision, No double vision, No nose pain, No throat pain Respiratory: no symptoms reported; No cough, No dyspnea on exertion, No short of breath Cardiovascular: no symptoms reported; No edema, No palpitations Gastrointestinal: no symptoms reported; No abdominal pain, No constipation, No diarrhea, No nausea, No vomiting Genitourinary: no symptoms reported; No dysuria, No frequency, No hematuria Musculoskeletal: no symptoms reported; No back pain, No joint pain, No muscle pain Skin: no symptoms reported; No lesions, No rash Psychiatric/Neurological: Headache, Tingling Reviewed Test Results Reviewed Test Results Lab Laboratory Tests Test 03/02/21 22:11 03/02/21 22:15 03/02/21 22:25 03/02/21 22:56 Range/Units Glucometer 386 H 70-110 MG/DL White Blood Count 7.4 4.3-11.0 10^3/uL Red Blood Count 5.29 4.30-5.52 10^6/uL Hemoglobin 15.5 13.3-17.7 g/dL Hematocrit 43 40-54 % Mean Corpuscular Volume 82 80-99 fL Mean Corpuscular Hemoglobin 29 25-34 pg Mean Corpuscular Hemoglobin Concent 36 32-36 g/dL Red Cell Distribution Width 12.7 10.0-14.5 % Platelet Count 284 130-400 10^3/uL Mean Platelet Volume 9.3 9.0-12.2 fL Immature Granulocyte % (Auto) 1 % Neutrophils (%) (Auto) 51 42-75 % Lymphocytes (%) (Auto) 35 12-44 % Monocytes (%) (Auto) 7 0-12 % Eosinophils (%) (Auto) 6 0-10 % Basophils (%) (Auto) 1 0-10 % Neutrophils # (Auto) 3.8 1.8-7.8 10^3/uL Lymphocytes # (Auto) 2.6 1.0-4.0 10^3/uL Monocytes # (Auto) 0.5 0.0-1.0 10^3/uL Eosinophils # (Auto) 0.5 H 0.0-0.3 10^3/uL Basophils # (Auto) 0.1 0.0-0.1 10^3/uL Immature Granulocyte # (Auto) 0.0 0.0-0.1 10^3/uL Sodium Level 136 135-145 MMOL/L Potassium Level 3.9 3.6-5.0 MMOL/L Chloride Level 97 L 98-107 MMOL/L Carbon Dioxide Level 23 21-32 MMOL/L Anion Gap 16 H 5-14 MMOL/L Blood Urea Nitrogen 5 L 7-18 MG/DL Creatinine 1.12 0.60-1.30 MG/DL Estimat Glomerular Filtration Rate > 60 BUN/Creatinine Ratio 4 Glucose Level 401 *H 70-105 MG/DL Calcium Level 9.2 8.5-10.1 MG/DL Corrected Calcium 9.0 8.5-10.1 MG/DL Total Bilirubin 0.7 0.1-1.0 MG/DL Aspartate Amino Transf (AST/SGOT) 17 5-34 U/L Alanine Aminotransferase (ALT/SGPT) 27 0-55 U/L Alkaline Phosphatase 73 40-136 U/L Troponin I < 0.028 <0.028 NG/ML C-Reactive Protein High Sensitivity 0.43 0.00-0.50 MG/DL Total Protein 7.1 6.4-8.2 GM/DL Albumin 4.2 3.2-4.5 GM/DL Prothrombin Time 13.2 12.2-14.7 SEC INR Comment 1.0 0.8-1.4 Activated Partial Thromboplast Time 26 24-35 SEC D-Dimer 0.05 0.00-0.49 UG/ML Urine Color YELLOW Urine Clarity CLEAR Urine pH 6.0 5-9 Urine Specific [place] 1.020 1.016-1.022 Urine Protein NEGATIVE NEGATIVE Urine Glucose (UA) 3+ H NEGATIVE Urine Ketones TRACE H NEGATIVE Urine Nitrite NEGATIVE NEGATIVE Urine Bilirubin NEGATIVE NEGATIVE Urine Urobilinogen 0.2 < = 1.0 MG/DL Urine Leukocyte Esterase NEGATIVE NEGATIVE Urine RBC (Auto) NEGATIVE NEGATIVE Urine RBC NONE /HPF Urine WBC NONE /HPF Urine Squamous Epithelial Cells 0-2 /HPF Urine Renal Epithelial Cells NONE /HPF Urine Crystals NONE /LPF Urine Bacteria NEGATIVE /HPF Urine Casts NONE /LPF Urine Mucus NEGATIVE /LPF Urine Culture Indicated NO Test 03/03/21 03:00 03/03/21 05:31 03/03/21 11:40 03/03/21 15:44 Range/Units Sodium Level 140 135-145 MMOL/L Potassium Level 3.5 L 3.6-5.0 MMOL/L Chloride Level 104 98-107 MMOL/L Carbon Dioxide Level 23 21-32 MMOL/L Anion Gap 13 5-14 MMOL/L Blood Urea Nitrogen 5 L 7-18 MG/DL Creatinine 0.81 0.60-1.30 MG/DL Estimat Glomerular Filtration Rate > 60 BUN/Creatinine Ratio 6 Glucose Level 95 70-105 MG/DL Calcium Level 8.9 8.5-10.1 MG/DL Triglycerides Level 370 H <150 MG/DL Cholesterol Level 151 < 200 MG/DL LDL Cholesterol Direct 70 1-129 MG/DL VLDL Cholesterol 74 H 5-40 MG/DL HDL Cholesterol 26 L 40-60 MG/DL Glucometer 82 127 H 171 H 70-110 MG/DL Physical Exam-([facility]C) Physical Exam Vital Signs VS - Last 72 Hours, by Label 03/02/21 03/02/21 03/03/21 03/03/21 21:58 22:15 01:35 01:57 Temp 35.3 36.6 36.6 36.4 Pulse 91 91 88 74 Resp 20 20 18 20 B/P (MAP) 188/98 (128) 188/98 (128) 148/86 183/109 (133) Pulse Ox 99 99 98 96 O2 Delivery Room Air Room Air Room Air Room Air 03/03/21 03/03/21 03/03/21 03/03/21 02:00 02:15 02:25 03:00 Pulse 77 72 B/P (MAP) 138/77 (97) 108/62 (77) Pulse Ox 95 96 99 95 O2 Delivery Room Air Room Air Room Air Room Air 03/03/21 03/03/21 03/03/21 03/03/21 04:00 05:00 06:00 07:00 Pulse 70 70 67 71 B/P (MAP) 117/67 (84) 127/71 (89) 109/62 (78) Pulse Ox 92 93 94 96 O2 Delivery Room Air Room Air Room Air Room Air 03/03/21 03/03/21 03/03/21 03/03/21 07:45 08:00 08:00 09:00 Temp 36.7 Pulse 71 75 B/P (MAP) 170/97 (121) Pulse Ox 93 97 O2 Delivery Room Air Room Air 03/03/21 03/03/21 03/03/21 03/03/21 09:00 09:01 10:00 11:45 Temp 36.8 Pulse 73 57 70 B/P (MAP) 154/85 (108) 123/73 (90) 141/69 (93) Pulse Ox 99 92 96 O2 Delivery Room Air Room Air Room Air 03/03/21 13:57 Pulse 61 Capillary Refill : Less Than 3 Seconds General Appearance: WD/WN, no apparent distress, obese HEENT: PERRL/EOMI Neck: non-tender, full range of motion, supple Respiratory: chest non-tender, lungs clear, normal breath sounds, no re spiratory distress, no accessory muscle use Cardiovascular: normal peripheral pulses, regular rate, rhythm, no murmur, other (trace swelling present bilaterally) Gastrointestinal: normal bowel sounds, non tender, soft, no organomegaly Back: no CVA tenderness, no vertebral tenderness Extremities: normal range of motion, non-tender, normal inspection, no pedal edema, no calf tenderness, normal capillary refill Neurologic/Psychiatric: technical communication teacher II-XII nml as tested, no motor/sensory deficits, alert, normal mood/affect, oriented x 3, aphasia Skin: normal color, warm/dry Lymphatic: no adenopathy Assessment/Plan Assessment/Plan Admission Status: Inpatient Order (span 2 midnights) Reason for Inpatient Admission: Stroke protocol and requires frequent neuro checks (1) Ischemic cerebrovascular accident (CVA) Status: Acute Assessment & Plan: - ASA/plavix, Statin, Speech/OT/PT, MRI consistent with sub acute ischemic stroke, no acute hemorrhage (2) Expressive aphasia Status: Acute (3) Insulin dependent diabetes mellitus with complications Status: Chronic Assessment & Plan: - A1c pending, Accucheck AC/HS, SSI (4) 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
[2021-03-03] MEDS ORDERED: NON-FORMULARY MEDICATION 1 EA EA (Cariprazine Hydrochloride (Vraylar) 1.5 MG) PO SCH (19:00)
[2021-03-03] MEDS ORDERED: NON-FORMULARY MEDICATION 1 EA EA (Gabapentin 800 MG) PO SCH (21:00)
[2021-03-03] MEDS ORDERED: NON-FORMULARY MEDICATION 1 EA EA (Propranolol HCl 40 MG) PO SCH (21:00)
[2021-03-03] MEDS: PROPRANOLOL 20 MG (INDERAL) TABLET PO SCH (21:20)
[2021-03-03] MEDS: GABAPENTIN 400 MG (NEURONTIN) CAP PO SCH (21:20)
[2021-03-04 00:25] VITALS: BP 158/92
[2021-03-04 03:44] VITALS: BP 157/90
[2021-03-04 05:44] LABS: BASOPHILS # (AUTO) 0.1 10^3/uL (0.0-0.1); BASOPHILS % (AUTO) 1 % (0-10); EOSINOPHILS # (AUTO) 0.5 10^3/uL (0.0-0.3); EOSINOPHILS % (AUTO) 7 % (0-10); HEMATOCRIT 40 % (40-54); HEMOGLOBIN 14.3 g/dL (13.3-17.7); LYMPHOCYTES # (AUTO) 2.4 10^3/uL (1.0-4.0); LYMPHOCYTES % (AUTO) 36 % (12-44); MEAN CORPUSCULAR HEMOGLOBIN 29 pg (25-34); MEAN CORPUSCULAR HGB CONC 36 g/dL (32-36); MEAN CORPUSCULAR VOLUME 82 fL (80-99); MEAN PLATELET VOLUME 9.3 fL (9.0-12.2); MONOCYTES # (AUTO) 0.5 10^3/uL (0.0-1.0); MONOCYTES % (AUTO) 8 % (0-12); NEUTROPHILS # (AUTO) 3.2 10^3/uL (1.8-7.8); NEUTROPHILS % (AUTO) 48 % (42-75); PLATELET COUNT 241 10^3/uL (130-400); WHITE BLOOD COUNT 6.7 10^3/uL (4.3-11.0)
[2021-03-04 05:56] LABS: ALBUMIN 3.5 GM/DL (3.2-4.5); CHLORIDE 104 MMOL/L (98-107); SODIUM 137 MMOL/L (135-145)
[2021-03-04 05:58] LABS: CALCIUM 8.4 MG/DL (8.5-10.1)
[2021-03-04 05:59] LABS: GLUCOSE 278 MG/DL (70-105); TOTAL PROTEIN 5.9 GM/DL (6.4-8.2)
[2021-03-04 06:00] LABS: CARBON DIOXIDE 22 MMOL/L (21-32)
[2021-03-04 06:02] LABS: ALKALINE PHOSPHATASE 63 U/L (40-136); CREATININE SERUM 0.84 MG/DL (0.60-1.30); GFR ESTIMATED > 60
[2021-03-04 06:03] LABS: BUN/CREATININE RATIO 7
[2021-03-04 06:05] LABS: ALANINE AMINOTRANSFERASE 29 U/L (0-55)
[2021-03-04] MEDS: inSUlin ASPART (NovoLOG) 1 UNIT/0.01 ML (CHARGE PER UNIT) SC SCH ×2 (06:26→11:22)
[2021-03-04 08:19] VITALS: BP 164/88
[2021-03-04] MEDS: ASPIRIN E.C. 325 MG (ECOTRIN) TABLET PO SCH (08:22)
[2021-03-04] MEDS: PROPRANOLOL 20 MG (INDERAL) TABLET PO SCH (08:22)
[2021-03-04] MEDS: GABAPENTIN 400 MG (NEURONTIN) CAP PO SCH (08:22)
[2021-03-04] MEDS: CLOPIDOGREL 75 MG (PLAVIX) TABLET PO SCH (08:22)
[2021-03-04] MEDS: NS IV 1000 ML 1,000 ML IV SCH (08:26)
[2021-03-04] MEDS ORDERED: lisINopril 20 MG (PRINIVIL) TABLET PO SCH (09:00)
--- NOTE | 2021-03-04 10:02 | Speech Therapy Daily Note ---
Speech Daily Progress Note Subjective Date Seen by Provider: Mar 04, 2021 Time Seen by Provider: 00:15 Patient was sitting up on the side of the bed with a friend present. Patient states he doesn't have a headache today. He appeared to be in good spirits. Objective Patient completed a series of modifying sentence by fill in the blanks with 80% given 20% phonemic and/or functional cues. Assessment Assessment Current Status: Good Progress Treatment Plan Continue Plan of Care Speech Short Term Goals Short Term Goals Short Term Goals 1) Patient will complete fill in the blank sentences with and without written cues at 90% or greater. 2) Patient will complete confrontational naming exercises with actual objects, pictures and descriptors at 90% or greater. Speech Ski Binding Fitter And Repairer Goals Ski Binding Fitter And Repairer Goals Patient will demo effective communication skills for daily needs. Speech-Plan Patient/Family Goals Patient/Family Goals: Patient plans on returning to his home where he lives alone. He has friends who will be involved with meeting his daily needs and other support. Treatment Plan Speech Therapy Treatment Plan: Continue Plan of Care Treatment Duration: Mar 12, 2021 Frequency: 4 times per week (Patient will receive skilled ST 4-5x per week) Estimated Hrs Per Day: .25 hour per day Rehab Potential: Good Barriers to Learning: Patient's expressive aphasia Pt/Family Agrees to Plan: Yes Safety Risks/Education Teaching Recipient: Patient, Friend Teaching Methods: Demonstration, Discussion Response to Teaching: Verbalize Understanding, Return Demonstration Education Topics Provided: Importance of keeping his BP and BS #'s in check upon his return home, taking medications as scheduled Time Speech Therapy Time In: 09:30 Speech Therapy Time Out: 09:45 Total Billed Time: 15 Billed Treatment Time 1DODIE [address] ST Mar 04, 2021 10:02
--- NOTE | 2021-03-04 10:57 | Discharge Summary ---
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 St ates that these symptoms have been present for the last 2 days. No facial muscle changes or extremity weakness. [facility] Stroke team was called with CT scan results and patient did not meet requirements for tPA. MRI was done this AM and was consistent with subacute ischemic stroke. Patient denies any previous strokes or TIAs. Denies any previous heart complications or interventions. No recent medication changes. He is on 3 blood pressure medications and states that he takes his medications daily. He does not monitor his blood pressure. States that his grandfather had multiple strokes. Discharge Summary-Simple/Stand Consultations Discharge Physical Examination Allergies: Coded Allergies: codeine (Unverified Allergy, Mild, 10/22/09) naproxen (Unverified Allergy, Mild, 10/22/09) bacitracin (Verified Allergy, Unknown, 12/01/15) bupropion (Verified Allergy, Unknown, 12/01/15) cephalexin (Verified Allergy, Unknown, 12/01/15) corn (Verified Allergy, Unknown, 12/01/15) doxepin (Verified Allergy, Unknown, 12/01/15) gluten (Verified Allergy, Unknown, 12/01/15) lurasidone (Verified Allergy, Unknown, 12/01/15) neomycin (Verified Allergy, Unknown, 12/01/15) paroxetine (Verified Allergy, Unknown, 12/01/15) polymyxin B (Verified Allergy, Unknown, 12/01/15) sertraline (Verified Allergy, Unknown, 12/01/15) ziprasidone (Verified Allergy, Unknown, 12/01/15) latex (Unverified Adverse Reaction, Mild, RASH, 01/19/11) Vitals & I&Os Vital Sign - Last 12Hours Date Time Temp Pulse Resp B/P (MAP) Pulse Ox O2 Delivery O2 Flow Rate FiO2 03/04/21 09:00 97 Room Air 03/04/21 08:19 36.6 73 18 164/88 (113) l Intake and Output 03/04/21 00:00 Intake Total 820 ml Output Total 700 ml Balance 120 ml General Appearance: Alert, Oriented X3, No Acute Distress HEENT: Mucous Memb Moist/[place] Respiratory: Clear to Auscultation, Normal Air Movement Cardiovascular: Regular Rate, No Murmurs Abdominal: Normal Bowel Sounds, Soft, No Tenderness, No Masses Extremities: No Edema, No Tenderness/Swelling Neuro: Strength at 5/5 X4 Ext, Sensation Intact, Cranial Nerves 3-12 NL, Other (Troubles with word finding at times, but when he slows down is able to figure it out) Hospital Course Was the Problem List Reviewed?: Yes See final discharge diagnosis. Discussion & Recommendations 50 yo M that presented with expressive aphasia that was found to have left parietal subacute ischemic stroke. Patient was started on ASA/Plavix/Statin and was seen by PT/OT/Speech. He would benefit from speech as an outpatient. Blood pressures running 160s systolic so lisinopril was increased at discharge. Will have close f.u with PCP next . Discharge Condition at discharge Stable Instructions to patient/family Please see electronic discharge instructions given to patient. Discharge Medications Reviewed and agree with Discharge Medication list on patient's Discharge Instruction sheet Copy Copies To 1: Neel MILLIGAN HOLLY R MD Mar 04, 2021 10:57
[2021-03-04] MEDS ORDERED: CLOP75TA28 PO (11:04)
[2021-03-04] MEDS ORDERED: ATOR80TA76 PO (11:04)
[2021-03-04] MEDS ORDERED: ASPI-999 PO (11:04)
--- NOTE | 2021-03-04 11:06 | Discharge Summary ---
Discharge [facility] Reconcile Patient Problems Problems Reviewed?: Yes Discharge Medications New, Converted or Re-Newed RX: Transmitted to Pharmacy New Medications: Aspirin (Aspirin) 81 Mg Tab.chew 81 MG PO DAILY, #30 TAB Atorvastatin Calcium (Atorvastatin Calcium) 80 Mg Tablet 80 MG PO DAILY, #30 TAB Clopidogrel Bisulfate (Clopidogrel) 75 Mg Tablet 75 MG PO DAILY, #30 TAB Continued Medications: Acetaminophen (Tylenol Extra Strength) 500 Mg Tablet 1000 MG PO Q8H PRN for PAIN-MILD (1-4), TAB Albuterol Sulfate (Proair Hfa) 1 Puff Puff 2 PUFF IH Q4H PRN for SHORTNESS OF BREATH, PUFF Cariprazine Hydrochloride (Vraylar) 1.5 Mg Capsule 1.5 MG PO 1900, TAB TAKES AFTER DINNER Cyclobenzaprine HCl (Cyclobenzaprine HCl) 10 Mg Tablet 10 MG PO TID PRN for MUSCLE SPASMS, TAB Furosemide (Furosemide) 20 Mg Tablet 20 MG PO DAILY, TAB Gabapentin (Gabapentin) 800 Mg Tablet 800 MG PO TID, TAB Gemfibrozil (Gemfibrozil) 600 Mg Tablet 600 MG PO BID, TAB Glipizide (Glipizide) 10 Mg Tablet 20 MG PO BID, TAB TAKES 2 (10MG) TABS Hydroxyzine HCl (Hydroxyzine HCl) 50 Mg Tablet 50 MG PO BID PRN for ITCHING/ALLERGY SYMPTOMS, TAB Insulin Detemir (Levemir Flextouch) 100 Unit/1 Ml Insuln.pen 15 UNITS SC 1700, UNITS TAKES AFTER DINNER Insulin NPL/Insulin Lispro (Humalog Mix 75-25 Kwikpen) 100 Unit/1 Ml Insuln.pen 75 UNITS SC BID, UNITS Lisinopril (Lisinopril) 20 Mg Tablet 20 MG PO DAILY, TAB Metformin HCl (Metformin HCl ER) 500 Mg Tab.er.24h 1000 MG PO BID, TAB TAKES 2 (500MG) TABS Multivitamin (Multivitamin) 1 Each Tablet 1 EACH PO DAILY, TAB Propranolol HCl (Propranolol HCl) 40 Mg Tablet 40 MG PO BID, TAB Testosterone Cypionate (Testosterone Cypionate) 200 Mg/1 Ml Vial 200 MG IM EVERY 2 WEEKS, ML Discontinued Medications: [Prevagen] () 1 EA PO DAILY Patient Instructions Goal/Follow Up Appt: Patient already has appt with PCP next thursday. Encouraged him to keep that appt Patient Instructions: - Make sure to review your medications as you have been started on new meds Return to [facility]: - Increased troubles with talking - Worsening weakness Activity & Diet Discharge Diet: Cardiac Diet Activity as Tolerated: Yes Copy Copies To 1: Neel MILLIGAN HOLLY R MD Mar 04, 2021 11:06
[2021-03-04 11:30] VITALS: BP 164/88
== END 2021-03-04 11:30 | disposition home or self-care (01) | DRG 66 ==
LOC: EDUNIT# 21:49 → ER 21:51 → ICU 03-03 00:37 → 4TH 03-03 15:25
PROVIDERS: ADMIT Family Medicine; ATTEND Family Medicine
DX: I63.9 Cerebral infarction, unspecified (principal); R47.01 Aphasia; I10 Essential (primary) hypertension; R29.702 NIHSS score 2; E11.65 Type 2 diabetes mellitus with hyperglycemia; E11.40 Type 2 diabetes mellitus with diabetic neuropathy, unspecified; I65.22 Occlusion and stenosis of left carotid artery; F41.9 Anxiety disorder, unspecified; F43.10 Post-traumatic stress disorder, unspecified; F31.9 Bipolar disorder, unspecified; E78.00 Pure hypercholesterolemia, unspecified; K21.9 Gastro-esophageal reflux disease without esophagitis; M19.91 Primary osteoarthritis, unspecified site; H54.3 Unqualified visual loss, both eyes; Z79.84 Long term (current) use of oral hypoglycemic drugs; Z87.891 Personal history of nicotine dependence; Z68.37 Body mass index [BMI] 37.0-37.9, adult; Z88.6 Allergy status to analgesic agent; Z88.1 Allergy status to other antibiotic agents
CPT/HCPCS: 36415; 70450; 70496; 70498; 70551; 71045; 80048; 80053; 80061; 81000; 82947; 84484; 85025; 85379; 85610; 85730; 86141; 93005; 93041; 93306

== ENCOUNTER 2021-04-22 15:09 | Outpatient (RCR) | payer MEDICARE, MEDICAID ==
[~2021-04-22 15:09] MED LIST changes: +ACET-2267 PO; +ASPI-999 PO; +ATOR80TA76 PO; +CARI1.5C PO; +CLOP75TA28 PO; +CYCL10TA9 PO; +FURO20TA4 PO; +GABA800T10 PO; +GEMF600T88 PO; +GLIP10TA13 PO; +INSU100I21 SC; +INSU100I29 SC; +LISI20TA26 PO; +METF-865 PO; +MULT-1136 PO; +PREVAGEN PO; +RT-ALBUINH IH; +TEST200V21 IM
== END 2021-04-22 16:05 | disposition home or self-care (01) ==
PROVIDERS: ATTEND Internal Medicine
DX: I69.320 Aphasia following cerebral infarction (principal)

== ENCOUNTER 2022-04-17 16:12 | Emergency (ER) | payer MEDICARE, MEDICAID ==
[~2022-04-17] VITALS: Ht 185.4 cm; Wt 127.5 kg
[~2022-04-17 16:12] MED LIST changes: +CYCL10TA25 PO; -CYCL10TA9 PO
[2022-04-17] MEDS ORDERED: LACTATED RINGERS 1,000 ML IV SCH ×3 (16:30→21:15)
[2022-04-17] MEDS ORDERED: ONDANSETRON 4 MG/2 ML (SDV) Z0FRAN IVP ONE (16:30)
--- NOTE | 2022-04-17 16:44 | ED General ---
General Chief Complaint: General Problems/Pain Stated Complaint: VOMITING Source of Information: Patient Exam Limitations: No Limitations History of Present Illness Date Seen by Provider: Apr 17, 2022 Time Seen by Provider: 16:40 Initial Comments To ER with reports of nausea and vomiting with intermittent abdominal pain. This began 3 days ago. The day prior to this he did take a Viagra. He has had some intermittent epigastric pain since though none currently. Normal bowel movement yesterday but nothing since then including no passage of flatus. No urine output today. He has been wihtout Air conditioning for the past 2 days as well with outside temps in excess of 100degrees. . 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 Primary care is Neel Tadeo at [facility]. Timing/Duration: 3-4 Days Severity: Moderate Associated Systoms: Nausea/Vomiting Allergies and Home Medications Allergies Coded Allergies: codeine (Unverified Allergy, Mild, 04/17/22) naproxen (Unverified Allergy, Mild, 04/17/22) bacitracin (Verified Allergy, Unknown, 04/17/22) bupropion (Verified Allergy, Unknown, 04/17/22) cephalexin (Verified Allergy, Unknown, 04/17/22) corn (Verified Allergy, Unknown, 04/17/22) doxepin (Verified Allergy, Unknown, 04/17/22) gluten (Verified Allergy, Unknown, 04/17/22) lurasidone (Verified Allergy, Unknown, 04/17/22) neomycin (Verified Allergy, Unknown, 04/17/22) paroxetine (Verified Allergy, Unknown, 04/17/22) polymyxin B (Verified Allergy, Unknown, 04/17/22) sertraline (Verified Allergy, Unknown, 04/17/22) ziprasidone (Verified Allergy, Unknown, 04/17/22) latex (Unverified Adverse Reaction, Mild, RASH, 04/17/22) Patient Home Medication List Home Medication List Reviewed: Yes Acetaminophen (Tylenol Extra Strength) 500 Mg Tablet, 1,000 MG PO Q8H PRN for PAIN-MILD (1-4), (Reported) Entered as Reported by: ZULMA ENGLISH on 03/03/21 1156 Albuterol Sulfate (Proair Hfa) 1 Puff Puff, 2 PUFF IH Q4H PRN for SHORTNESS OF BREATH, (Reported) Entered as Reported by: ZULMA ENGLISH on 03/03/21 115 Aspirin (Aspirin) 81 Mg Tab.chew, 81 MG PO DAILY Prescribed by: TERI SANDERS on 03/04/21 1104 Atorvastatin Calcium (Atorvastatin Calcium) 80 Mg Tablet, 80 MG PO DAILY Prescribed by: TERI SANDERS on 03/04/21 1104 Cariprazine Hydrochloride (Vraylar) 1.5 Mg Capsule, 1.5 MG PO 1900, (Reported) Entered as Reported by: ZULMA ENGLISH on 03/03/21 115 Clopidogrel Bisulfate (Clopidogrel) 75 Mg Tablet, 75 MG PO DAILY Prescribed by: TERI SANDERS on 03/04/21 1104 Cyclobenzaprine HCl (Cyclobenzaprine HCl) 10 Mg Tablet, 10 MG PO TID PRN for MUSCLE SPASMS, (Reported) Entered as Reported by: ZULMA ENGLISH on 03/03/21 115 Furosemide (Furosemide) 20 Mg Tablet, 20 MG PO DAILY, (Reported) Entered as Reported by: ZULMA ENGLISH on 03/03/21 115 Gabapentin (Gabapentin) 800 Mg Tablet, 800 MG PO TID, (Reported) Entered as Reported by: ZULMA ENGLISH on 03/03/21 115 Gemfibrozil (Gemfibrozil) 600 Mg Tablet, 600 MG PO BID, (Reported) Entered as Reported by: ZULMA ENGLISH on 03/03/21 115 Glipizide (Glipizide) 10 Mg Tablet, 20 MG PO BID, (Reported) Entered as Reported by: ZULMA ENGLISH on 03/03/21 115 Hydroxyzine HCl (Hydroxyzine HCl) 50 Mg Tablet, 50 MG PO BID PRN for ITCHING/ALLERGY SYMPTOMS, (Reported) Entered as Reported by: KENNETH JOSHI on 02/24/17 1238 Insulin Detemir (Levemir Flextouch) 100 Unit/1 Ml Insuln.pen, 15 UNITS SC 1700, (Reported) Entered as Reported by: ZULMA ENGLISH on 03/03/21 115 Insulin NPL/Insulin Lispro (Humalog Mix 75-25 Kwikpen) 100 Unit/1 Ml Insuln.pen, 75 UNITS SC BID, (Reported) Entered as Reported by: ZULMA ENGLISH on 03/03/21 1156 Lisinopril (Lisinopril) 20 Mg Tablet, 20 MG PO DAILY, (Reported) Entered as Reported by: ZULMA ENGLISH on 03/03/21 1156 Metformin HCl (Metformin HCl ER) 500 Mg Tab.er.24h, 1,000 MG PO BID, (Reported) Entered as Reported by: ZULMA ENGLISH on 03/03/21 1156 Multivitamin (Multivitamin) 1 Each Tablet, 1 EACH PO DAILY, (Reported) Entered as Reported by: ZULMA ENGLISH on 03/03/21 1156 Propranolol HCl (Propranolol HCl) 40 Mg Tablet, 40 MG PO BID, (Reported) Entered as Reported by: KENNETH JOSHI on 02/24/17 1238 Testosterone Cypionate (Testosterone Cypionate) 200 Mg/1 Ml Vial, 200 MG IM EVERY 2 WEEKS, (Reported) Entered as Reported by: ZULMA ENGLISH on 03/03/21 1156 Review of Systems Review of Systems Constitutional: see HPI EENTM: see HPI Respiratory: no symptoms reported Cardiovascular: no symptoms reported Genitourinary: no symptoms reported Musculoskeletal: no symptoms reported Skin: no symptoms reported Psychiatric/Neurological: No Symptoms Reported Hematologic/Lymphatic: No Symptoms Reported Immunological/Allergic: no symptoms reported Past Bnisugy-Rtnbay-Azrjcl Hx Immunizations Up To Date Tetanus Booster (TDap): Unknown Seasonal Allergies Seasonal Allergies: Yes Past Medical History Surgeries: Yes (CARDIAC CATH, NO INTERVENTION, LIPOMA FROM CHEST) Gallbladder, Vasectomy Respiratory: No Chronic Bronchitis Cardiac: Yes High Cholesterol, Hypertension Neurological: Yes Neuropathy Reproductive Disorders: No Sexually Transmitted Disease: No HIV/AIDS: No Gastrointestinal: Yes (POSS CELIAC DISEASE) Gastroesophageal Reflux, Chronic Diarrhea, Irritable Bowel Musculoskeletal: Yes Arthritis Endocrine: Yes Diabetes, Non-Insulin dep Loss of Vision: Bilateral Hearing Impairment: Denies Cancer: No Psychosocial: Yes Anxiety, PTSD, Bipolar, Depression Integumentary: No Blood Disorders: No Adverse Reaction/Blood Tranf: No (N/A) Family Medical History Stroke, Other Conditions/Hx Physical Exam Vital Signs Vital Signs - First Documented 04/17/22 16:35 Temp 36.3 Pulse 109 Resp 18 B/P (MAP) 86/58 (67) Pulse Ox 94 O2 Delivery Room Air Capillary Refill : Height, Weight, BMI Height: 6'1.00" Weight: 285lbs. 9.0oz. [id number]; 37.09 BMI Method:Stated General Appearance: No Apparent Distress, WD/WN, Other (Alert though states he feels a little disoriented. His gait was unsteady upon walking back to room 5. His initial blood pressure was in the 70s systolic and repeat was in the low 80s systolic. 2 IVs were started and two 1 L boluses of lactated Ringer's were started.) Eyes: Bilateral Eye Normal Inspection, Bilateral Eye PERRL, Bilateral Eye EOMI Neck: Full Range of Motion, Normal Inspection Respiratory: No Accessory Muscle Use, No Respiratory Distress Cardiovascular: Regular Rate, Rhythm, Normal Peripheral Pulses Gastrointestinal: Normal Bowel Sounds, Non Tender, Soft Extremity: Normal Capillary Refill, Normal Inspection, Normal Range of Motion Neurologic/Psychiatric: Alert, Oriented x3 Skin: Normal Color, Warm/Dry Progress/Results/Core Measures Suspected Sepsis SIRS Temperature: Pulse: Respiratory Rate: Laboratory Tests 04/17/22 16:35: White Blood Count 14.7H Blood Pressure / Mean: Laboratory Tests 04/17/22 16:35: Creatinine 14.19H, Platelet Count 385, Total Bilirubin 0.8 04/17/22 21:35: Results/Orders Lab Results Laboratory Tests Test 04/17/22 16:35 04/17/22 18:50 04/17/22 19:11 04/17/22 21:35 Range/Units White Blood Count 14.7 H 4.3-11.0 10^3/uL Red Blood Count 4.79 4.30-5.52 10^6/uL Hemoglobin 13.8 13.3-17.7 g/dL Hematocrit 40 40-54 % Mean Corpuscular Volume 84 80-99 fL Mean Corpuscular Hemoglobin 29 25-34 pg Mean Corpuscular Hemoglobin Concent 34 32-36 g/dL Red Cell Distribution Width 13.2 10.0-14.5 % Platelet Count 385 130-400 10^3/uL Mean Platelet Volume 9.3 9.0-12.2 fL Immature Granulocyte % (Auto) 1 % Neutrophils (%) (Auto) 75 42-75 % Lymphocytes (%) (Auto) 15 12-44 % Monocytes (%) (Auto) 8 0-12 % Eosinophils (%) (Auto) 1 0-10 % Basophils (%) (Auto) 1 0-10 % Neutrophils # (Auto) 10.9 H 1.8-7.8 10^3/uL Lymphocytes # (Auto) 2.3 1.0-4.0 10^3/uL Monocytes # (Auto) 1.2 H 0.0-1.0 10^3/uL Eosinophils # (Auto) 0.1 0.0-0.3 10^3/uL Basophils # (Auto) 0.1 0.0-0.1 10^3/uL Immature Granulocyte # (Auto) 0.1 0.0-0.1 10^3/uL Neutrophils % (Manual) 73 % Lymphocytes % (Manual) 21 % Monocytes % (Manual) 6 % Eosinophils % (Manual) 0 % Basophils % (Manual) 0 % Band Neutrophils 0 % Blood Morphology Comment NORMAL Sodium Level 137 135-145 MMOL/L Potassium Level 5.6 H 3.6-5.0 MMOL/L Chloride Level 94 L 98-107 MMOL/L Carbon Dioxide Level 15 L 21-32 MMOL/L Anion Gap 28 H 5-14 MMOL/L Blood Urea Nitrogen 82 H 7-18 MG/DL Creatinine 14.19 H 0.60-1.30 MG/DL Estimat Glomerular Filtration Rate 4 BUN/Creatinine Ratio 6 Glucose Level 214 H 70-105 MG/DL Glucometer 213 H 70-110 MG/DL Calcium Level 9.8 8.5-10.1 MG/DL Corrected Calcium 9.4 8.5-10.1 MG/DL Total Bilirubin 0.8 0.1-1.0 MG/DL Aspartate Amino Transf (AST/SGOT) 9 5-34 U/L Alanine Aminotransferase (ALT/SGPT) 21 0-55 U/L Alkaline Phosphatase 100 40-136 U/L Total Protein 7.8 6.4-8.2 GM/DL Albumin 4.5 3.2-4.5 GM/DL Lipase 40 8-78 U/L Urine Color ORANGE Urine Clarity SL CLOUDY Urine pH 5.0 5-9 Urine Specific [place] >=1.030 1.016-1.022 Urine Protein 2+ H NEGATIVE Urine Glucose (UA) TRACE H NEGATIVE Urine Ketones NEGATIVE NEGATIVE Urine Nitrite NEGATIVE NEGATIVE Urine Bilirubin 1+ H NEGATIVE Urine Urobilinogen 0.2 < = 1.0 MG/DL Urine Leukocyte Esterase NEGATIVE NEGATIVE Urine RBC (Auto) NEGATIVE NEGATIVE Urine RBC NONE /HPF Urine WBC NONE /HPF Urine Squamous Epithelial Cells NONE /HPF Urine Crystals NONE /LPF Urine Bacteria NEGATIVE /HPF Urine Casts PRESENT /LPF Urine Hyaline Casts RARE /LPF Urine Mucus NEGATIVE /LPF Urine Culture Indicated NO SARS-CoV-2 RNA (RT-PCR) Not Detected Not Detecte My Orders Orders - YAKELIN HERNANDEZ [employer]PA[employer]ER Lipase (04/17/22 16:24) Ua Culture If Indicated (04/17/22 16:24) Cbc With Automated Diff (04/17/22 16:24) Comprehensive Metabolic Panel (04/17/22 16:24) Ed Iv/Invasive Line Start (04/17/22 16:24) Lactated Ringers (Lr 1000 Ml Iv Solution (04/17/22 16:30) Ondansetron Injection (Zofran Injectio (04/17/22 16:30) Lactated Ringers (Lr 1000 Ml Iv Solution (04/17/22 16:45) Ekg Tracing (04/17/22 16:40) Manual Differential (04/17/22 16:35) Ct Abdomen/Pelvis Wo (04/17/22 17:15) Baron Cath (04/17/22 18:32) Lidocaine 2% (Urojet) (Xylocaine Urojet) (04/17/22 18:45) Covid 19 Inhouse Test (04/17/22 19:10) Basic Metabolic Panel (04/17/22 21:14) Lactated Ringers (Lr 1000 Ml Iv Solution (04/17/22 21:15) Promethazine Injection (Phenergan Injec (04/17/22 21:45) Medications Given in ED Current Medications Medications Dose Ordered Sig/Syl Route Start Time Stop Time Status Last Admin Dose Admin Lidocaine HCl 10 ml ONCE ONCE TOP 04/17/22 18:45 04/17/22 18:46 DC 04/17/22 18:40 10 ML Ondansetron HCl 8 mg ONCE ONCE IVP 04/17/22 16:30 04/17/22 16:31 DC 04/17/22 16:43 8 MG Vital Signs/I&O 04/17/22 16:35 Temp 36.3 Pulse 109 Resp 18 B/P (MAP) 86/58 (67) Pulse Ox 94 O2 Delivery Room Air Capillary Refill : Departure Communication (Admissions) Family Conversation NAME: NIDIA DAVIS [facility] REC#: [id number] PT STATUS: REG ER : 1970 PHYSICIAN: YAKELIN HERNANDEZ APRN ADMIT DATE: 04/17/22/ER Draft Date of Exam:04/17/22 CT ABDOMEN/PELVIS WO EXAMINATION: CT abdomen and pelvis without contrast. TECHNIQUE: Multiple contiguous axial images were obtained through the abdomen and pelvis without the use of intravenous contrast. All CT scans use one or more of the following dose optimizing techniques: automated exposure control, MA and/or KvP adjustment based on patient size and exam type or iterative reconstruction. HISTORY: Pain. COMPARISON: 05/22/2018. FINDINGS: Limited views of the lower thorax are unremarkable. The liver is normal without focal lesion. There is no biliary ductal dilation. Gallbladder is surgically absent. Pancreas is normal. Spleen is normal. Adrenal glands are normal. The kidneys are normal. There is no hydronephrosis. Urinary bladder is normal. Bowel is normal in caliber without obstruction or inflammation. There is a fat-containing umbilical hernia. No free fluid or air. No abdominal or pelvic lymphadenopathy. Aorta is normal in caliber without aneurysm. There are no suspicious osseus lesion. IMPRESSION: No acute abnormality in the abdomen or pelvis. Dictated on workstation # [id number] Dict: 04/17/221810 Trans: 04/17/221816 [facility] [id number] Interpreted by: MATT CHILD MD Electronically signed by: Spoke with Dr. HOLLAND, we will transfer the patient to a facility with nephrology services. Impression Primary Impression: Acute kidney injury Disposition: XF T-TRM HOSP Condition: Stable Transfer Transfer Reason: Exceeds level of care Time Spoke to Accepting Phy: 18:07 Transfer Progress Notes Acute kidney injury Isabel Drewdle Room 3010 Departure-Patient Inst. Referrals: [facility] (PCP/Family) Primary Care Physician YAKELIN HERNANDEZ APRN Apr 17, 2022 16:44
[2022-04-17 16:45] LABS: BASOPHILS # (AUTO) 0.1 10^3/uL (0.0-0.1); BASOPHILS % (AUTO) 1 % (0-10); EOSINOPHILS # (AUTO) 0.1 10^3/uL (0.0-0.3); EOSINOPHILS % (AUTO) 1 % (0-10); HEMATOCRIT 40 % (40-54); HEMOGLOBIN 13.8 g/dL (13.3-17.7); LYMPHOCYTES # (AUTO) 2.3 10^3/uL (1.0-4.0); LYMPHOCYTES % (AUTO) 15 % (12-44); MEAN CORPUSCULAR HEMOGLOBIN 29 pg (25-34); MEAN CORPUSCULAR HGB CONC 34 g/dL (32-36); MEAN CORPUSCULAR VOLUME 84 fL (80-99); MEAN PLATELET VOLUME 9.3 fL (9.0-12.2); MONOCYTES # (AUTO) 1.2 10^3/uL (0.0-1.0); MONOCYTES % (AUTO) 8 % (0-12); NEUTROPHILS # (AUTO) 10.9 10^3/uL (1.8-7.8); NEUTROPHILS % (AUTO) 75 % (42-75); PLATELET COUNT 385 10^3/uL (130-400); WHITE BLOOD COUNT 14.7 10^3/uL (4.3-11.0)
[2022-04-17 16:55] LABS: ALBUMIN 4.5 GM/DL (3.2-4.5); POTASSIUM 5.6 MMOL/L (3.6-5.0)
[2022-04-17 16:56] LABS: CALCIUM 9.8 MG/DL (8.5-10.1)
[2022-04-17 16:57] LABS: TOTAL PROTEIN 7.8 GM/DL (6.4-8.2)
[2022-04-17 16:59] LABS: BILIRUBIN,TOTAL 0.8 MG/DL (0.1-1.0)
[2022-04-17 17:01] LABS: CREATININE SERUM 14.19 MG/DL (0.60-1.30)
[2022-04-17 17:14] LABS: BAND NEUTROPHILS 0 %; BASOPHILS % (MANUAL) 0 %; EOSINOPHILS % (MANUAL) 0 %; LYMPHOCYTES % (MANUAL) 21 %; MONOCYTES % (MANUAL) 6 %; NEUTROPHILS % (MANUAL) 73 %; RBC MORPH NORMAL
--- NOTE | 2022-04-17 18:17 | Diagnostic Imaging Report ---
EXAMINATION: CT abdomen and pelvis without contrast. TECHNIQUE: Multiple contiguous axial images were obtained through the abdomen and pelvis without the use of intravenous contrast. All CT scans use one or more of the following dose optimizing techniques: automated exposure control, MA and/or KvP adjustment based on patient size and exam type or iterative reconstruction. HISTORY: Pain. COMPARISON: 05/22/2018. FINDINGS: Limited views of the lower thorax are unremarkable. The liver is normal without focal lesion. There is no biliary ductal dilation. Gallbladder is surgically absent. Pancreas is normal. Spleen is normal. Adrenal glands are normal. The kidneys are normal. There is no hydronephrosis. Urinary bladder is normal. Bowel is normal in caliber without obstruction or inflammation. There is a fat-containing umbilical hernia. No free fluid or air. No abdominal or pelvic lymphadenopathy. Aorta is normal in caliber without aneurysm. There are no suspicious osseus lesion. IMPRESSION: No acute abnormality in the abdomen or pelvis. Dictated by: Dictated on workstation # [id number]
[2022-04-17] MEDS ORDERED: LIDOCAINE UROJET 2% GEL 10 ML PKG TOP ONE (18:45)
[2022-04-17 18:58] LABS: CLARITY,URINE SL CLOUDY; COLOR,URINE ORANGE; GLUCOSE, URINE (UA) TRACE (NEGATIVE); KETONES,URINE NEGATIVE (NEGATIVE); LEUKOCYTE ESTERASE ,URINE NEGATIVE (NEGATIVE); NITRITE,URINE NEGATIVE (NEGATIVE); PROTEIN,URINE 2+ (NEGATIVE)
[2022-04-17 19:08] LABS: BACTERIA,URINE NEGATIVE /HPF; BILIRUBIN,URINE 1+ (NEGATIVE); HYALINE CASTS, URINE RARE /LPF
[2022-04-17] MEDS ORDERED: PROMETHAZINE INJ 25 MG/ML (PHENERGAN) AMP IVP ONE (21:45)
[2022-04-17 21:51] LABS: POTASSIUM 6.2 MMOL/L (3.6-5.0)
[2022-04-17 21:57] LABS: CREATININE SERUM 13.04 MG/DL (0.60-1.30)
[2022-04-17 22:20] VITALS: BP 139/70
== END 2022-04-17 22:20 | disposition short-term general hospital (02) ==
LOC: EDUNIT# 16:12 → ER 16:14
DX: N17.9 Acute kidney failure, unspecified (principal); I10 Essential (primary) hypertension; Z20.822 Contact with and (suspected) exposure to COVID-19
CPT/HCPCS: 36415; 51702; 74176; 80048; 80053; 81000; 82947; 83690; 85007; 85027; 87636; 93005